=== PATIENT | male | born 1975 | race Caucasian/White ===

== ENCOUNTER 2018-08-21 15:29 | Emergency (ER) | payer OTHER, MEDICAID ==
[2018-08-21] MEDS ORDERED: NS 500 ML IV ONE (15:37)
[2018-08-21] MEDS ORDERED: HYDROmorphONE/DILAUDID 2 MG/ML INJ IVP ONE ×2 (15:37→18:09)
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
[2018-08-21] MEDS ORDERED: PROMETHAZINE HCL 25 MG/ML INJ IVP ONE ×2 (16:19→18:09)
[2018-08-21] MEDS ORDERED: IOPAMIDOL (ISOVUE-300) 100 ML BTL ONE (16:27)
[2018-08-21 16:37] LABS: PLATELET COUNT 362 10^3/uL (150-400)
[2018-08-21] MEDS ORDERED: HYDROmorphONE/DILAUDID 1 MG/ML INJ ONE (18:09)
[2018-08-21] MEDS ORDERED: PROMETHAZINE HCL 25 MG/ML INJ ONE (18:10)
[2018-08-21] MEDS ORDERED: POLYETHYLENE GLYCOL 3350 17 GM PKT ONE (18:53)
[2018-08-21] MEDS ORDERED: POLYETHYLENE GLYCOL 3350 17 GM PKT PO ONE (18:56)
[2018-08-21 18:57] VITALS: BP 126/75
== END 2018-08-21 19:12 | disposition home or self-care (01) ==
LOC: EDUNIT#
DX: R10.9 Unspecified abdominal pain (principal); K59.00 Constipation, unspecified
CPT/HCPCS: 74177; 96374; 96375; 96376; 99285; J1170; J2550; Q9967

== ENCOUNTER 2018-08-25 00:20 | Emergency (ER) | payer OTHER, MEDICAID ==
[2018-08-25] MEDS ORDERED: NS 1,000 ML IV ONE (00:24)
[2018-08-25] MEDS ORDERED: HYDROmorphONE/DILAUDID 2 MG/ML INJ IVP ONE ×2 (00:24→04:29)
[2018-08-25] MEDS ORDERED: ONDANSETRON 4 MG/2 ML VIAL IVP ONE (00:24)
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
[2018-08-25 01:05] LABS: PLATELET COUNT 394 10^3/uL (150-400)
[2018-08-25] MEDS ORDERED: HYOSCYAMINE SULFATE 0.125 MG TAB PO ONE (05:30)
[2018-08-25] MEDS ORDERED: MAG HYDROX/AL HYDROX/SIMETH 30 ML UDCUP PO ONE (05:30)
[2018-08-25] MEDS ORDERED: LIDOCAINE 2% VISCOUS 15 ML UDCUP PO ONE (05:30)
[2018-08-25 05:38] VITALS: BP 114/72
== END 2018-08-25 07:03 | disposition home or self-care (01) ==
LOC: EDUNIT#
DX: R10.9 Unspecified abdominal pain (principal); E86.9 Volume depletion, unspecified; G82.20 Paraplegia, unspecified
CPT/HCPCS: 96361; 96374; 96375; 96376; 99284; J1170; J2405

== ENCOUNTER 2018-08-28 17:04 | Inpatient (IN) | payer OTHER, MEDICAID ==
[2018-08-28] MEDS ORDERED: HYOSCYAMINE SULFATE 0.125 MG TAB PO ONE (17:28)
[2018-08-28] MEDS ORDERED: MAG HYDROX/AL HYDROX/SIMETH 30 ML UDCUP PO ONE (17:28)
[2018-08-28] MEDS ORDERED: LIDOCAINE 2% VISCOUS 15 ML UDCUP PO ONE (17:28)
[2018-08-28] MEDS ORDERED: HYDROmorphONE/DILAUDID 2 MG/ML INJ IVP ONE ×2 (17:28→18:47)
[2018-08-28] MEDS ORDERED: PROMETHAZINE HCL 25 MG/ML INJ IVP ONE ×2 (17:28→18:55)
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
[2018-08-28 17:55] LABS: PLATELET COUNT 386 10^3/uL (150-400)
[2018-08-28] MEDS ORDERED: methylPREDNISolone SOD SUCC 125 MG/2 ML VIAL IVP ONE (19:43)
[2018-08-28] MEDS ORDERED: oxyCODONE IR 5 MG TAB PO PRN (21:06)
[2018-08-28] MEDS ORDERED: ACETAMINOPHEN 325 MG TAB PO PRN (21:06)
[2018-08-28] MEDS: ONDANSETRON DISINTEGRATING 4 MG TAB PO PRN (22:11)
[2018-08-28] MEDS: PROMETHAZINE HCL 25 MG/ML INJ IVP PRN (23:17)
[2018-08-28] MEDS: HYDROmorphONE/DILAUDID 1 MG/ML INJ IVP PRN (23:18)
--- NOTE | 2018-08-28 23:35 | PDGENHP ---
History and Physical - Chief Complaint Abdominal pain - History of Present Illness 43 yo M w/ hx of C5 injury and UC presents with abdominal pain and BRBPR. He has been experiencing increased abdominal pain for 1 week. He has been to the ED 3 times over this period. He also moved to [facility] one week ago, which may also be contributing to presentation. He is complaining of severe lower abdominal pain, bloody/mucus discharge from his rectal stump and foul odor. He underwent a CT scan on 08/21 that was unremarkable. In the ED today his inflammatory markers are mildly elevated but his H/H are stable and his VS WNL. He did not feel comfortable being discharged back to [facility] so he was admitted for further management. GI was contacted in the ED and he was given methylprednisolone 125 mg IV x1. He has not been on any UC treatment for the last week. Most recently he was on short chain fatty acid (SCFA) enemas but none for the last week. Oral mesalamine was stopped 6 weeks ago due to rapid transit and stomach irritation. Of note, the patient was hospitalized at [facility] 2 months ago for extensive b/l DVTs. He has been on therapeutic Lovenox for this since. Case discussed with Dr. Fitzgerald; records reviewed and summarized above. History Information - Allergies/Home Medication List Allergies/Adverse Reactions: quetiapine fumarate [From Seroquel] Allergy (Severe, Verified 08/28/18 17:15) seizure acetylcysteine [From Mucomyst] Allergy (Verified 08/28/18 17:15) citalopram [From Celexa] Allergy (Verified 08/28/18 17:15) propofol Allergy (Verified 08/28/18 17:15) tramadol Allergy (Verified 08/28/18 17:15) Home Medications: Acetaminophen [Tylenol 325mg (*)] 325 - 650 mg PO Q4 PRN 08/28/18 [Last Taken Unknown] Albuterol [Ventolin Hfa Inhaler] 1 puffs IH Q4 PRN 08/28/18 [Last Taken Unknown] Cholecalciferol Vit D3 [Vitamin D3 (*)] 1,000 units PO DAILY 08/28/18 [Last Taken 08/28/18] Docusate Sodium [Colace 100 MG (*)] 200 mg PO BID 08/28/18 [Last Taken Unknown] Enoxaparin [Lovenox 80 MG (*)] 80 mg SQ Q12H 08/28/18 [Last Taken 08/28/18 08:00 ] Famotidine [Pepcid 20 MG (*)] 40 mg PO BID 08/28/18 [Last Taken 08/28/18 09:00] HYDROmorphone HCL [Dilaudid 2 mg (*)] 2 mg PO Q6 PRN 08/28/18 [Last Taken 08:40] Herbals/Supplements -Info Only 1 ea PO DAILY 08/28/18 [Last Taken Unknown] Hydrocortisone/Pramoxine [Proctofoam-Hc 1%-1% Foam] 1 rashmi Q12 PRN 08/28/18 [ Last Taken Unknown] LORazepam [Ativan (*)] 0.5 mg PO Q8 PRN 08/28/18 [Last Taken 08/27/18] Mag Hydrox/Aluminum Hyd/Simeth [Alum-Mag Hydroxide-Simeth Liq] 15 - 30 ml PO Q2 PRN 08/28/18 [Last Taken Unknown] Mesalamine [Canasa Suppository (*)] 1,000 mg AL DAILY 08/28/18 [Last Taken 08/27] Midodrine HCl 2.5 mg PO TIDMEAL PRN 08/28/18 [Last Taken Unknown] Mineral Oil [MINERAL OIL ENEMA] 1 rashmi Q12 PRN 08/28/18 [Last Taken Unknown] Multivitamins [Multivitamin (*)] 1 each PO DAILY 08/28/18 [Last Taken 08/28/18] Ondansetron Odt [Zofran Odt 4 mg (*)] 4 mg PO Q8H PRN 08/28/18 [Last Taken 08/28 11:00] Polyethylene Glycol 3350 [Miralax 17 gm (*)] 17 gm PO DAILY PRN 08/28/18 [Last Taken Unknown] Promethazine HCl [Phenergan 25mg (*)] 25 mg PO Q6 PRN 08/28/18 [Last Taken 08/27] Sennosides 8.6 mg PO DAILY PRN 08/28/18 [Last Taken Unknown] Sennosides [Senna Lax] 8.6 mg PO DAILY 08/28/18 [Last Taken Unknown] fentaNYL [Duragesic 12 MCG Patch (*)] 12 mcg TD Q72H 08/28/18 [Last Taken 08:00] I have personally reviewed and updated: family history, medical history - Past Medical History Additional medical history: C5 injury, incomplete. Ulcerative colitis - Surgical History Additional surgical history: Ostomy. Suprapubic catheter - Family History Additional family history: Grandmother had diverticulitis or IBD, patient unsure - Social History Smoking Status: Never smoked Review of Systems Review of Systems: ROS: 10pt was reviewed & negative except for what was stated in HPI & below Physical Exam Physical Exam: Temp Pulse Resp BP Pulse Ox 36.6 C 67 18 127/90 H 95 08/28/18 21:59 08/28/18 21:59 08/28/18 21:59 08/28/18 21:59 08/28/18 21:59 Constitutional: obese, uncomfortable Eyes: PERRL, EOMI Ears, Nose, Mouth, Throat: moist mucous membranes, no oral mucosal ulcers Cardiovascular: regular rate and rhythym, no murmur, rub, or gallop Respiratory: no respiratory distress, clear to auscultation Gastrointestinal: tenderness (Lower), No guarding, No rebound, No distension Skin: warm, other (Ostomy LLQ, SPT noted) Neurologic: AAOx3, other (LUE strength relatively intact, otherwise paralyzed) Lab Data & Imaging Review 08/28/18 17:37 08/28/18 17:37 WBC 8.16 10^3/uL (3.80-9.50) 08/28/18 17:37 RBC 3.67 10^6/uL (4.40-6.38) L 08/28/18 17:37 Hgb 10.2 g/dL (13.7-17.5) L 08/28/18 17:37 Hct 32.4 % (40.0-51.0) L 08/28/18 17:37 MCV 89.6 fL (81.5-99.8) 08/28/18 17:37 MCH 27.8 pg (27.9-34.1) L 08/28/18 17:37 MCHC 31.0 g/dL (32.4-36.7) L 08/28/18 17:37 RDW 13.9 % (11.5-15.2) 08/28/18 17:37 Plt Count 386 10^3/uL (150-400) 08/28/18 17:37 MPV 9.2 fL (8.7-11.7) 08/28/18 17:37 Neut % (Auto) 65.2 % (39.3-74.2) 08/28/18 17:37 Lymph % (Auto) 17.6 % (15.0-45.0) 08/28/18 17:37 [place] % (Auto) 7.7 % (4.5-13.0) 08/28/18 17:37 Eos % (Auto) 7.4 % (0.6-7.6) 08/28/18 17:37 Baso % (Auto) 0.5 % (0.3-1.7) 08/28/18 17:37 Nucleat RBC Rel Count 0.0 % (0.0-0.2) 08/28/18 17:37 Absolute Neuts (auto) 5.32 10^3/uL (1.70-6.50) 08/28/18 17:37 Absolute Lymphs (auto) 1.44 10^3/uL (1.00-3.00) 08/28/18 17:37 Absolute Monos (auto) 0.63 10^3/uL (0.30-0.80) 08/28/18 17:37 Absolute Eos (auto) 0.60 10^3/uL (0.03-0.40) H 08/28/18 17:37 Absolute Basos (auto) 0.04 10^3/uL (0.02-0.10) 08/28/18 17:37 Absolute Nucleated RBC 0.00 10^3/uL (0-0.01) 08/28/18 17:37 Immature Gran % 1.6 % (0.0-1.1) H 08/28/18 17:37 Immature Gran # 0.13 10^3/uL (0.00-0.10) H 08/28/18 17:37 ESR 25 MM/HR (0-15) H 08/28/18 17:37 Sodium 136 mEq/L (135-145) 08/28/18 17:37 Potassium 4.0 mEq/L (3.5-5.2) 08/28/18 17:37 Chloride 108 mEq/L (97-110) 08/28/18 17:37 Carbon Dioxide 23 mEq/l (22-31) 08/28/18 17:37 Anion Gap 5 mEq/L (6-14) L 08/28/18 17:37 BUN 9 mg/dL (7-23) 08/28/18 17:37 Creatinine 0.5 mg/dL (0.7-1.3) L 08/28/18 17:37 Estimated GFR > 60 08/28/18 17:37 Glucose 92 mg/dL (70-100) 08/28/18 17:37 Calcium 8.9 mg/dL (8.5-10.4) 08/28/18 17:37 C-Reactive Protein 18.8 mg/L (<10.0) H 08/28/18 17:37 Stool Occult Bld Scrn POSITIVE (NEGATIVE) H 08/28/18 18:47 Assessment & Plan Assessment: 43 yo M w/ C5 injury and UC presents with abdominal pain and BRBPR. Plan: 1. UC with suspected acute flare - Patient presents with 1 week of increased pain and reported bloody discharged from rectal stump; ESR 25 and CRP 18. He denies bloody output from his ostomy. He has been off of treatment for about a week. Most recently he was on short chain fatty acid (SCFA) enemas but none for the last week. Oral mesalamine was stopped 6 weeks ago due to rapid transit and stomach irritation. He is followed by [facility]. - Admit for observation - Pain control, anti-emetics PRN - NPO @ [place] - S/p methylprednisolone 125 mg x1 - GI contacted in the ED, may benefit from scope or UC directed therapies 2. Hx C5 injury - With retained mobility of E. He currently resided at [facility] while awaiting arrangement of an apartment with appropriate home health services. - Ostomy and SPT in place - Wound/ostomy care consult placed 3. Normocytic anemia - Stable over the last week, I suspect this is multifactorial from chronic inflammation and blood loss exacerbated by therapeutic anticoagulation - Monitor CBC - Will check ferritin with AM labs 4. Hx DVT - Patient admitted at [facility] 2 months ago for extensive, bilateral DVTs. He has been on therapeutic Lovenox since. - Hold Lovenox for now - If bleeding persists and unable to tolerate anticoagulation, may benefit from IVC filter Diet - NPO @ [place] Code - Full Ppx - SCDs Dispo - Admit under observation status
[2018-08-29] MEDS: HYDROmorphONE/DILAUDID 1 MG/ML INJ IVP PRN ×4 (04:23→23:09)
[2018-08-29] MEDS: PROMETHAZINE HCL 25 MG/ML INJ IVP PRN (06:22)
[2018-08-29] MEDS ORDERED: PROCTOFOAM HC 10 GM CAN PR PRN (07:50)
[2018-08-29] MEDS ORDERED: LORazepam 0.5 MG TAB PO PRN (07:50)
[2018-08-29] MEDS ORDERED: HYDROmorphONE/DILAUDID 2 MG TAB PO PRN (07:50)
[2018-08-29] MEDS ORDERED: ALBUTEROL 60 PUFFS/8 GM MDI IH PRN (08:00)
[2018-08-29] MEDS: CHOLECALCIFEROL VIT D3 1,000 UNITS TAB PO SCH (08:44)
[2018-08-29] MEDS: FAMOTIDINE 20 MG TAB PO SCH ×2 (08:44→20:34)
[2018-08-29] MEDS ORDERED: Herbals/Supplements -Info Only PO SCH (09:00)
--- NOTE | 2018-08-29 09:24 | PDANEPAE ---
ANE History of Present Illness EGD, colonoscopy ANE Past Medical History - Pulmonary History Hx Oxygen in Use at Home: No Hx Sleep Apnea: Yes - Endocrine History Hx Diabetes: No - Neurological & Psychiatric Hx Hx Neurological and Psychiatric Disorders: Yes Neurological / Psychiatric History Comment: C5 incomplete injury - GI History Hx Gastrointestinal Disorders: Yes Gastrointestinal History Comment: UC ANE Review of Systems Review of systems is: negative Review of Systems: - Exercise capacity Exercise capacity: limited by disability ANE Patient History - Allergies Allergies/Adverse Reactions: quetiapine fumarate [From Seroquel] Allergy (Severe, Verified 08/28/18 17:15) seizure acetylcysteine [From Mucomyst] Allergy (Verified 08/28/18 17:15) citalopram [From Celexa] Allergy (Verified 08/28/18 17:15) propofol Allergy (Verified 08/28/18 17:15) tramadol Allergy (Verified 08/28/18 17:15) - Home Medications Home medications: home medication list seen and reviewed Home Medications: Acetaminophen [Tylenol 325mg (*)] 325 - 650 mg PO Q4 PRN 08/28/18 [Last Taken Unknown] Albuterol [Ventolin Hfa Inhaler] 1 puffs IH Q4 PRN 08/28/18 [Last Taken Unknown] Cholecalciferol Vit D3 [Vitamin D3 (*)] 1,000 units PO DAILY 08/28/18 [Last Taken 08/28/18] Docusate Sodium [Colace 100 MG (*)] 200 mg PO BID 08/28/18 [Last Taken Unknown] Enoxaparin [Lovenox 80 MG (*)] 80 mg SQ Q12H 08/28/18 [Last Taken 08/28/18 08:00 ] Famotidine [Pepcid 20 MG (*)] 40 mg PO BID 08/28/18 [Last Taken 08/28/18 09:00] HYDROmorphone HCL [Dilaudid 2 mg (*)] 2 mg PO Q6 PRN 08/28/18 [Last Taken 08:40] Herbals/Supplements -Info Only 1 ea PO DAILY 08/28/18 [Last Taken Unknown] Hydrocortisone/Pramoxine [Proctofoam-Hc 1%-1% Foam] 1 rashmi RC Q12 PRN 08/28/18 [ Last Taken Unknown] LORazepam [Ativan (*)] 0.5 mg PO Q8 PRN 08/28/18 [Last Taken 08/27/18] Mag Hydrox/Aluminum Hyd/Simeth [Alum-Mag Hydroxide-Simeth Liq] 15 - 30 ml PO Q2 PRN 08/28/18 [Last Taken Unknown] Mesalamine [Canasa Suppository (*)] 1,000 mg WA DAILY 08/28/18 [Last Taken 08/27] Midodrine HCl 2.5 mg PO TIDMEAL PRN 08/28/18 [Last Taken Unknown] Mineral Oil [MINERAL OIL ENEMA] 1 rashmi RC Q12 PRN 08/28/18 [Last Taken Unknown] Multivitamins [Multivitamin (*)] 1 each PO DAILY 08/28/18 [Last Taken 08/28/18] Ondansetron Odt [Zofran Odt 4 mg (*)] 4 mg PO Q8H PRN 08/28/18 [Last Taken 08/28 11:00] Polyethylene Glycol 3350 [Miralax 17 gm (*)] 17 gm PO DAILY PRN 08/28/18 [Last Taken Unknown] Promethazine HCl [Phenergan 25mg (*)] 25 mg PO Q6 PRN 08/28/18 [Last Taken 08/27] Sennosides 8.6 mg PO DAILY PRN 08/28/18 [Last Taken Unknown] Sennosides [Senna Lax] 8.6 mg PO DAILY 08/28/18 [Last Taken Unknown] fentaNYL [Duragesic 12 MCG Patch (*)] 12 mcg TD Q72H 08/28/18 [Last Taken 08:00] - NPO status NPO Status: no food or drink >8 hours - Anes Hx Anes Hx: post operative nausea - Smoking Hx Smoking Status: Never smoked - Family Anes Hx Family Anes Hx: none ANE Labs/Vital Signs - Labs Result Diagrams: 08/28/18 17:37 08/28/18 17:37 - Vital Signs Vital Signs: reviewed preoperatively; see RN documention for details Blood Pressure: 107/73 Heart Rate: 77 Respiratory Rate: 12 O2 Sat (%): 96 Height: 182.88 cm Weight: 106.594 kg ANE Physical Exam - Airway Neck exam: decreased ROM Mallampati Score: Class 3 Mouth exam: normal dental/mouth exam, small mouth opening - Pulmonary Pulmonary: no respiratory distress - Cardiovascular Cardiovascular: regular rate and rhythym - ASA Status ASA Status: III ANE Anesthesia Plan Total IV Anesthesia: Yes Urgent/Emergent Case: David villalpando completed preop but documented later for safe timely pt care
[2018-08-29] MEDS ORDERED: PROPOFOL 200 MG/20 ML VIAL ONE ×2 (09:41→09:50)
[2018-08-29] MEDS ORDERED: LIDOCAINE 2% 100 MG/5 ML SYR ONE (09:42)
[2018-08-29] MEDS ORDERED: MIDAZOLAM 2 MG/2 ML VIAL ONE (09:57)
[2018-08-29] MEDS ORDERED: PROMETHAZINE HCL 25 MG/ML INJ ONE (10:06)
[2018-08-29] MEDS ORDERED: fentaNYL 100 MCG/2 ML INJ ONE (10:09)
[2018-08-29] MEDS ORDERED: NALOXONE HCL 0.4 MG/ML INJ IVP PRN (10:14)
[2018-08-29] MEDS ORDERED: PROMETHAZINE HCL 25 MG/ML INJ IVP PRN (10:14)
--- NOTE | 2018-08-29 10:17 | GIREPORT ---
[facility] - Endoscopy Department Patient Name: Franck Claros Procedure Date: 08/29/2018 9:37 AM Patient Type: Inpatient Attending MD/ ER Physician: Trenton King MD Procedure: Upper GI endoscopy Indications: Iron deficiency anemia, Abnormal CT of the GI tract Patient Profile: 43 year old male presents for evaluation of iron deficiency anemia as w ell as abnormal imaging/prior EGD? He was told that he needed a repeat EGD due to abnormal imaging. Providers: Trenton King MD Medicines: Monitored Anesthesia Care Complications: No immediate complications. Estimated blood loss: Minimal. Description of Procedure: After obtaining informed consent, the endoscope was passed under direct vision. Throughout the procedure, the patient's blood pressure, pulse, and oxygen saturations were monitored continuously. The Endoscope was intro duced through the mouth, and advanced to the second part of duodenum. The [facility] er GI endoscopy was accomplished without difficulty. The patient tolerated th e procedure well. Findings: The examined esophagus was normal. A hiatal hernia was present. A single 20 mm sessile polyp was found in the duodenal bulb. Biopsies w ere taken with a cold forceps for histology. Estimated Blood Loss: Estimated blood loss was minimal. Post Op Diagnosis: - Normal esophagus. - Hiatal hernia. - A single duodenal polyp. Biopsied. Recommendation: - Perform a flexible sigmoidoscopy. - Await pathology results. - Will need repeat EGD in 2 months for removal of the duodenal lesion dependent on biopsy results. Will need to be off Lovenox for this. - Thank you for allowing me to participate in the care of your patient. Attending Participation: I personally performed the entire procedure. Trenton King MD Trenton King MD 08/29/2018 10:17:09 AM This report has been signed electronicallyTrenton King MD Number of Addenda: 0 Note Initiated On: 08/29/2018 9:37 AM [email or web address]
[2018-08-29] MEDS: fentaNYL 100 MCG/2 ML INJ IVP PRN ×2 (10:19→10:29)
--- NOTE | 2018-08-29 11:37 | GIREPORT ---
[facility] - Endoscopy Department Patient Name: Franck Claros Procedure Date: 08/29/2018 9:29 AM Patient Type: Inpatient Attending MD/ ER Physician: Trenton King MD Procedure: Flexible Sigmoidoscopy, Scope through ostomy Indications: Lower abdominal pain, Rectal hemorrhage Patient Profile: 43 year old male with a history of possible UC, sigmoid colostomy prese nts for evaluation of progressive lower quadrant abdominal pain and blood f rom his rectal stump. He states he was told that he had UC previously. Providers: Trenton King MD Medicines: Propofol per Anesthesia Complications: No immediate complications. Estimated blood loss: Minimal. Description of Procedure: After obtaining informed consent, the endoscope was passed under direct vision. Throughout the procedure, the patient's blood pressure, pulse, and oxygen saturations were monitored continuously. The Endoscope was intro duced through the anus and advanced to the sigmoid colon. The Colonoscope was introduced through the sigmoid colostomy and advanced to the descending colon. The flexible sigmoidoscopy was accomplished without difficulty. The patient tolerated the procedure well. The quality of the bowel preparat ion was poor. Findings: the scope was introduced into the ostomy and advanced to the descending colon. Solid stool was seen. No signs of colitis noted. the scope was also introduced into the rectum and advanced to the sigmo id colon. The mucosa was erythematous and friable. Biopsies taken. Estimated Blood Loss: Estimated blood loss was minimal. Post Op Diagnosis: - Preparation of the colon was poor. 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 No evidence of ulcer ative colitis Recommendation: - [facility]. - Recommend SCFA enemas as outpatient. Will start Rowasa enemas as inpa tient - Taper steroids - He has followed up with colorectal surgery in [place] and will benefit from surgical evaluation for intestinal reconnection. - Await pathology results. - Resume previous diet. - Continue present medications. - Follow up with GI as outpatient. - GI will follow intermittently. Please call if needed. - Thank you for allowing me to particiapte in the care of your patient. Attending Participation: I personally performed the entire procedure. Trenton King MD Trenton King MD 08/29/2018 11:36:20 AM This report has been signed electronicallyTrenton King MD Number of Addenda: 0 Note Initiated On: 08/29/2018 9:29 AM [email or web address]
--- NOTE | 2018-08-29 11:49 | HOSPPROG ---
Hospitalist Progress Note Assessment/Plan: 43 yo M w/ C5 injury and UC presents with abdominal pain and BRBPR. Today is my first encounter w the patient, chart reviewed. Appreciate Dr King seeing him this morning. *abdominal pain, lower quadrant -initial concern was a UC flare but after discussion w Dr King, it is likely secondary due to diversion colitis -Rowasa enemas started -should get SCFA (short chain fatty acid) enemas as OP -Taper steroids per GI-only received one dose in the ER -recommendation is for him to f/u with surgeon in [place] for intestinal reconnection -endoscopy shows hiatal hernia and duodenal lesion-will need a repeat endoscopy in 2 months -flex sig nothing acute *hx of C5 injury -currently resides at [facility] *hx of DVT -Lovenox *normocytic anemia *chronic pain on chronic continuous opiates *plan: if eating ok, will dc with the above recommendations. Franck is requesting a dose of IV Dilaudid and a GI cocktail so he can eat. Subjective: Franck said he continues to have lower abdominal pain. Objective: Vital Signs Temp Pulse Resp BP Pulse Ox 36.6 C 62 12 108/67 93 08/29/18 11:42 08/29/18 11:42 08/29/18 11:42 08/29/18 11:42 08/29/18 11:42 08/28/18 08/29/18 08/30/18 05:59 05:59 05:59 Intake Total 400 Output Total 1100 Balance -1100 400 - Physical Exam Constitutional: chronically ill appearing, uncomfortable Eyes: PERRL Ears, Nose, Mouth, Throat: hearing normal Cardiovascular: regular rate and rhythym Respiratory: no respiratory distress Gastrointestinal: normoactive bowel sounds Skin: warm Neurologic: AAOx3 Psychiatric: interacting appropriately ICD10 Worksheet Patient Problems: Problems Problem Status Onset Abdominal pain Acute Rectal bleeding Acute
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
[2018-08-29] MEDS ORDERED: PROMETHAZINE HCL 25 MG TAB PO ONE (12:39)
[2018-08-29] MEDS ORDERED: HYDROmorphONE/DILAUDID 1 MG/ML INJ IVP ONE (12:41)
[2018-08-29] MEDS: ENOXAPARIN 80 MG/0.8 ML SYR SC SCH ×2 (13:07→20:36)
[2018-08-29] MEDS: MBX SOLN 30 ML BOTTLE PO PRN ×2 (13:51→21:44)
[2018-08-29] MEDS: MESALAMINE 4 GM/60 ML ENEMA BOTTLE PR SCH (15:02)
[2018-08-29] MEDS: NS 1,000 ML IV SCH (16:28)
--- NOTE | 2018-08-29 17:32 | ASMTCMCOM ---
CM Note CM Note Notes: Pt admitted for abd pain and blood from rectal stump in the setting of ulcerative colitis with colostomy and C5 injury. Pt recently moved to [facility]. Referral sent to [facility]. Pt underwent EGD today. No therapies ordered at this time. CM to follow. D/C Plan: Return to [facility] Date Signed: 08/29/2018 05:31 PM Electronically Signed By:Corry Randhawa
[2018-08-29] MEDS: ONDANSETRON 4 MG/2 ML VIAL IVP PRN ×2 (18:50→23:09)
--- NOTE | 2018-08-29 21:05 | PDMN ---
Medical Necessity Medical necessity: Pt meets IP criteria as of 08/29/2018 per and EKATERINA ZAMBRANO ( Gastroenterology [facility]); los > 2 mn for ongoing tx and management of abdominal pain likely secondary to diversion colitis, inability to maintain oral hydration and diet; requiring IV pain medication and anti-emetics, bowel program and GI consultation.
[2018-08-29] MEDS ORDERED: TEARS/DEXTRAN 70/HYPROMELLOSE 15 ML OPHT.BTL EACHEYE PRN (23:34)
[2018-08-30] MEDS: MBX SOLN 30 ML BOTTLE PO PRN ×8 (02:34→22:56)
[2018-08-30] MEDS: HYDROmorphONE/DILAUDID 1 MG/ML INJ IVP PRN ×5 (03:10→22:52)
[2018-08-30] MEDS: NS 1,000 ML IV SCH ×2 (06:06→17:54)
[2018-08-30] MEDS ORDERED: fentaNYL 12 MCG PATCH TD SCH (08:00)
--- NOTE | 2018-08-30 09:09 | SOAPPROG ---
SOAP Progress Note Assessment/Plan: Assessment: Plan: 08/30/18 09:05 A/P 1. Lower quadrant abdominal pain- hematochezia. 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 s/p Flex sig with bx. Need to f/u on path. Continue rowasa enemas and SCFA as outpatient. Ok to taper steroids off quickly. Will need to obtain old records and needs outpatient visit in 1-2 weeks. Ok to discharge soon. GI will sign off. Thank you for the consultation! Subjective: cc: Followup on hematochezia/lq abdominal pain Complaining of nausea and abdominal pain. Objective: Vital Signs Temp Pulse Resp BP Pulse Ox 36.6 C 76 169 H 117/82 H 96 08/30/18 08:00 08/30/18 08:00 08/30/18 08:00 08/30/18 08:00 08/30/18 08:00 08/29/18 08/30/18 08/31/18 05:59 05:59 05:59 Intake Total 600 1460 Output Total 1050 Balance -450 1460 Physical Exam - Physical Exam General Appearance: alert, no apparent distress EENT: No scleral icterus (R), No scleral icterus (L) Respiratory: chest non-tender, lungs clear Cardiac/Chest: regular rate, rhythm Abdomen: non-tender, soft, other (+ ostomy) Skin: normal color, warm/dry Neuro/Psych: normal mood/affect, oriented x 3 ICD10 Worksheet Patient Problems: Problems Problem Status Onset Abdominal pain Acute Rectal bleeding Acute
[2018-08-30] MEDS: ENOXAPARIN 80 MG/0.8 ML SYR SC SCH ×2 (09:14→20:09)
[2018-08-30] MEDS: ONDANSETRON 4 MG/2 ML VIAL IVP PRN ×3 (09:15→20:05)
[2018-08-30] MEDS: FAMOTIDINE 20 MG TAB PO SCH ×2 (09:15→20:05)
[2018-08-30] MEDS: CHOLECALCIFEROL VIT D3 1,000 UNITS TAB PO SCH (09:15)
--- NOTE | 2018-08-30 11:24 | HOSPPROG ---
Hospitalist Progress Note Assessment/Plan: 43 yo M w/ C5 injury and UC presents with abdominal pain and BRBPR. Appreciate Dr King seeing him this morning. *abdominal pain, lower quadrant -initial concern was a UC flare but after discussion w Dr King, it is likely secondary due to diversion colitis -Rowasa enemas started -should get SCFA (short chain fatty acid) enemas as OP -Taper steroids per GI-only received one dose in the ER -recommendation is for him to f/u with surgeon in [place] for intestinal reconnection -endoscopy shows hiatal hernia and duodenal lesion-will need a repeat endoscopy in 2 months -flex sig nothing acute *hx of C5 injury -currently resides at [facility] *hx of DVT -Lovenox *normocytic anemia *chronic pain on chronic continuous opiates *plan: will resume Valium for spasms, will review his med sheet from [place], says he is unable to eat due to the pain in his lower quadrant. Subjective: Franck is c/o ongoing lower quadrant abd pain. Objective: Vital Signs Temp Pulse Resp BP Pulse Ox 36.6 C 76 169 H 117/82 H 96 08/30/18 08:00 08/30/18 08:00 08/30/18 08:00 08/30/18 08:00 08/30/18 08:00 08/29/18 08/30/18 08/31/18 05:59 05:59 05:59 Intake Total 600 1460 Output Total 1050 Balance -450 1460 - Physical Exam Constitutional: chronically ill appearing, uncomfortable, No not in pain Eyes: PERRL Ears, Nose, Mouth, Throat: hearing normal Cardiovascular: regular rate and rhythym Respiratory: no respiratory distress Gastrointestinal: soft, non-tender abdomen, No normoactive bowel sounds ( hypoactive), No guarding, No rebound Genitourinary: luo in urethra Skin: warm Neurologic: AAOx3 Psychiatric: interacting appropriately ICD10 Worksheet Patient Problems: Problems Problem Status Onset Abdominal pain Acute Rectal bleeding Acute
[2018-08-30] MEDS: DIAZEPAM 5 MG TAB PO PRN ×3 (11:34→22:54)
[2018-08-30] MEDS: MESALAMINE 4 GM/60 ML ENEMA BOTTLE PR SCH (12:30)
--- NOTE | 2018-08-30 16:25 | ASMTCMCOM ---
CM Note CM Note Notes: CM discussed case with Azeb [facility] RN NEUROSURGICAL, patient could discharge today back to [facility] if he can eat. CM call to Zander @ [facility] [phone], patient able to return when ready. PCS form completed. CM to follow. D/C Plan: [facility] Date Signed: 08/30/2018 04:25 PM Electronically Signed By:Bianca Johnson
[2018-08-30] MEDS ORDERED: MIDODRINE HCL 5 MG TAB PO PRN (19:41)
[2018-08-30] MEDS: CEPACOL LOZENGE PO PRN (23:41)
[2018-08-30] MEDS: DOCUSATE SODIUM 100 MG CAP PO SCH (23:41)
[2018-08-31] MEDS: HYDROmorphONE/DILAUDID 1 MG/ML INJ IVP PRN ×3 (04:29→20:43)
[2018-08-31] MEDS: MBX SOLN 30 ML BOTTLE PO PRN ×3 (04:30→19:47)
[2018-08-31] MEDS: CEPACOL LOZENGE PO PRN ×3 (04:31→23:32)
[2018-08-31] MEDS: DIAZEPAM 5 MG TAB PO PRN ×3 (05:15→23:31)
[2018-08-31] MEDS: FAMOTIDINE 20 MG TAB PO SCH ×2 (08:38→20:51)
[2018-08-31] MEDS: DOCUSATE SODIUM 100 MG CAP PO SCH ×2 (08:39→20:52)
[2018-08-31] MEDS: ENOXAPARIN 80 MG/0.8 ML SYR SC SCH (08:39)
[2018-08-31] MEDS: CHOLECALCIFEROL VIT D3 1,000 UNITS TAB PO SCH (08:39)
[2018-08-31] MEDS: ONDANSETRON DISINTEGRATING 4 MG TAB PO PRN ×3 (09:01→23:32)
--- NOTE | 2018-08-31 11:13 | HOSPPROG ---
Hospitalist Progress Note Assessment/Plan: 43 yo M w/ C5 injury and UC presents with abdominal pain and BRBPR. *abdominal pain, lower quadrant -initial concern was a UC flare but after discussion w Dr King, it is likely secondary due to diversion colitis -Rowasa enemas started -should get SCFA (short chain fatty acid) enemas as OP -Taper steroids per GI-only received one dose in the ER -recommendation is for him to f/u with surgeon in [place] for intestinal reconnection -endoscopy shows hiatal hernia and duodenal lesion-will need a repeat endoscopy in 2 months -flex sig nothing acute -patient c/o spasms this morning in abdomen-hyoscyamine ordered, he thinks it may be r/t puja RN to bladder scan *hx of C5 injury -currently resides at [facility] *hx of DVT -Lovenox (dose changed to treatment dose) *normocytic anemia *chronic pain on chronic continuous opiates *plan: On dc, patient should have SCFA ordered, add Valium which has helped w spasms, would recommend continuing his Dilaudid as done here prn, patient was recently at [facility] and said the pain regimen they did for him really helped. In addition, his Lovenox dose has been increased. Should be dc on this dose. > 35 minutes talking w Franck today. Hopefully, if he can eat and drink, dc later today. Subjective: Franck said he is unable to eat or drink this morning, he did have a bowel movement. Objective: Vital Signs Temp Pulse Resp BP Pulse Ox 36.3 C 65 20 97/61 L 98 08/31/18 08:03 08/31/18 08:03 08/31/18 08:03 08/31/18 08:03 08/31/18 08:03 Laboratory Results 08/30/18 08:22 08/30/18 08/31/18 09/01/18 05:59 05:59 05:59 Intake Total 600 3300 Output Total 1050 900 Balance -450 2400 - Physical Exam Constitutional: chronically ill appearing Eyes: PERRL Ears, Nose, Mouth, Throat: hearing normal Cardiovascular: regular rate and rhythym Respiratory: no respiratory distress Gastrointestinal: normoactive bowel sounds, tenderness (in lower quadrants) Genitourinary: no bladder fullness, luo in urethra (suprapubic) Skin: warm, No normal color (pale) Neurologic: AAOx3 Psychiatric: interacting appropriately ICD10 Worksheet Patient Problems: Problems Problem Status Onset Abdominal pain Acute Rectal bleeding Acute
[2018-08-31] MEDS ORDERED: HYDROmorphONE/DILAUDID 4 MG TAB PO PRN ×2 (11:33→12:00)
[2018-08-31] MEDS ORDERED: HYOSCYAMINE SULFATE 0.125 MG TAB PO PRN (11:37)
[2018-08-31] MEDS: NS 1,000 ML IV SCH ×2 (12:01→23:26)
[2018-08-31] MEDS: MESALAMINE 4 GM/60 ML ENEMA BOTTLE PR SCH (12:06)
[2018-08-31] MEDS: HYDROmorphONE/DILAUDID 2 MG TAB PO PRN (19:44)
[2018-08-31] MEDS: ONDANSETRON 4 MG/2 ML VIAL IVP PRN (20:43)
[2018-08-31] MEDS: ENOXAPARIN 100 MG/ML SYR SC SCH (20:53)
[2018-09-01] MEDS: ONDANSETRON DISINTEGRATING 4 MG TAB PO PRN ×2 (03:56→14:07)
[2018-09-01] MEDS: MBX SOLN 30 ML BOTTLE PO PRN (03:56)
[2018-09-01] MEDS: HYDROmorphONE/DILAUDID 2 MG TAB PO PRN ×3 (03:59→14:07)
[2018-09-01 08:28] VITALS: BP 116/78
--- NOTE | 2018-09-01 10:05 | PDIAF ---
- Diagnosis Diagnosis: abd pain Code Status: Full Code - Medication Management Discharge Medications: electronically signed and located in the Home Medication List. - Orders Services needed: Registered Nurse, Physical Therapy, Occupational Therapy Diet Recommendation: no restrictions on diet Additional Instructions: Franck needs a repeat EGD in 2 months he needs a script for SCFA enemas (sheet of paper in chart gives the instructions-[facility]write out cont oral Dilaudid as here cont Lovenox as here (has been on too low of dose) cont Valium on dc dc Mesalamine capsule Franck needs to f/u with his GI surgeon in [place] in the next month - Follow Up Care Current Providers and Referrals: Patient,NotPresent [Unknown] - As per Instructions Trenton King MD [Medical Doctor] -
[2018-09-01] MEDS: CHOLECALCIFEROL VIT D3 1,000 UNITS TAB PO SCH (10:11)
[2018-09-01] MEDS: DOCUSATE SODIUM 100 MG CAP PO SCH (10:11)
[2018-09-01] MEDS: FAMOTIDINE 20 MG TAB PO SCH (10:12)
[2018-09-01] MEDS: ENOXAPARIN 100 MG/ML SYR SC SCH (10:13)
[2018-09-01] MEDS: MESALAMINE 4 GM/60 ML ENEMA BOTTLE PR SCH (10:18)
[2018-09-01] MEDS: NS 1,000 ML IV SCH (10:19)
[2018-09-01] MEDS: CEPACOL LOZENGE PO PRN (10:19)
[2018-09-01] MEDS ORDERED: PSEUDOEPHEDRINE HCL 30 MG TAB PO PRN (10:48)
[2018-09-01] MEDS: DIAZEPAM 5 MG TAB PO PRN (11:30)
--- NOTE | 2018-09-01 11:55 | ASMTLACE ---
LACE Length of stay for Answers: 4-6 days current admission Acuity / Level of Answers: Yes Care: Did the patient have an inpatient admission? Comorbidities - select Answers: Other Notes: C5 all that apply paraplegic; Diverticuli tis ; Ulcerative colitis # of Emergency department Answers: 3-4 visits in the last 6 months Score: 11 Date Signed: 09/01/2018 11:55 AM Electronically Signed By:JUNAID Danielson
--- NOTE | 2018-09-01 11:57 | ASMTDCNOTE ---
Case Management Discharge Discharge Order Complete? Answers: Yes Patient to Obtain Answers: Other Notes: [facility] Transportation Arranged Answers: [facility] will Pick (Date 09/01/2018 02:00 PM & Time) EMTALA Complete Answers: No Case Management Transport Answers: Yes Notes: Completed PCS form Form Complete Faxed Final Orders Answers: Yes Agency/Facility Transfer Answers: Yes Report Printed & Faxed to Receiving Agency Family Notified Answers: No Discharge Comments Notes: CM spoke to Analy Mccracken NP. Pt is being d/c'd today back to [facility]. CM notified Zander at [facility] of the d/c. CM arranged for pt to be picked up by [facility]. PCS form completed. DC orders sent. ADAMA Ornelas will call to give report. CM available for changes. Plan: [facility] Date Signed: 09/01/2018 11:56 AM Electronically Signed By:JUNAID Danielson
--- NOTE | 2018-09-01 11:59 | ASDISCHSUM ---
Discharge Information Plan Status:SNF Medically Cleared to Leave:08/31/2018 Discharge Date:08/31/2018 CM D/C Disposition: ADT D/C Disposition:Halfway Facility Projected Discharge Date:09/01/2018 11:00 AM Transportation at D/C: Discharge Delay Reason: Follow-Up Date:09/01/2018 11:00 AM Discharge Slot: Final Diagnosis: Placement Information Referral Type:*Group Home/SNF Referral ID:[id number] Provider Name:[facility]/ISABELLE Delogn Address 1:[address] Address 2: Fax Number: [facility]:[place] Selection Factors: State:[place] Patient Contact Information Contact Name:ALESHA Relationship:Other Address:[facility] [address] [facility] [address] Work Phone: [facility]:[place] Alternate Phone: State/Zip Code:[place] [address] Email: Financial Information Financial Class:Medicare Primary Plan Desc:MEDICARE INPATIENT Primary Plan Number:[id number] Secondary Plan Desc: Secondary Plan Number: Assessment Information [facility] CM Progress Note CM Note CM Note Notes: Pt admitted for abd pain and blood from rectal stump in the setting of ulcerative colitis with colostomy and C5 injury. Pt recently moved to [facility]. Referral sent to [facility]. Pt underwent EGD today. No therapies ordered at this time. CM to follow. D/C Plan: Return to [facility] Date Signed: 08/29/2018 05:31 PM Electronically Signed By:Corry Randhawa [facility] CM Progress Note CM Note CM Note Notes: CM discussed case with Azeb Lincoln NP, patient could discharge today back to [facility] if he can eat. CM call to Zander @ [facility] [phone], patient able to return when ready. PCS form completed. CM to follow. D/C Plan: [facility] Date Signed: 08/30/2018 04:25 PM Electronically Signed By:Bianca Johnson LACE LACE Length of stay for Answers: 4-6 days current admission Acuity / Level of Answers: Yes Care: Did the patient have an inpatient admission? Comorbidities - select Answers: Other Notes: C5 all that apply paraplegic; Diverticuli tis ; Ulcerative colitis # of Emergency department Answers: 3-4 visits in the last 6 months Score: 11 Date Signed: 09/01/2018 11:55 AM Electronically Signed By:JUNAID Danielson Case Management Discharge Plan Note Case Management Discharge Discharge Order Complete? Answers: Yes Patient to Obtain Answers: Other Notes: [facility] Medications Transportation Arranged Answers: [facility] will Pick (Date 09/01/2018 02:00 PM & Time) [place] Complete Answers: No Case Management Transport Answers: Yes Notes: Completed PCS form Form Complete Faxed Final Orders Answers: Yes Agency/Facility Transfer Answers: Yes Report Printed & Faxed to Receiving Agency Family Notified Answers: No Discharge Comments Notes: CM spoke to Analy Mccracken NP. Pt is being d/c'd today back to [facility]. CM notified Zander at [facility] of the d/c. CM arranged for pt to be picked up by LESLEE hernandez. PCS form completed. DC orders sent. ADAMA Ornelas will call to give report. CM available for changes. Plan: [facility] SNF Date Signed: 09/01/2018 11:56 AM Electronically Signed By:JUNAID Danielson Intervention Information Intervention Type:*IM-Signed Date of Service:09/01/2018 11:09 AM Patient Type:Inpatient Staff Member:Sarah Lr Hours: Discipline: Severity: Comment:
--- NOTE | 2018-09-01 15:41 | GDS ---
DISCHARGE DIAGNOSES: 1. Abdominal pain. 2. History of C5 injury. 3. Normocytic anemia. 4. Chronic pain, on chronic continuous opiates. CONSULTATIONS: Gastroenterology. STUDIES AND PROCEDURES DONE: 1. Flexible sigmoidoscopy. 2. Upper endoscopy. PHYSICAL EXAM: GENERAL: Patient is alert. VITAL SIGNS: Afebrile at 36.2, pulse 78, respiratory rate is 18, blood pressure is 116/89, saturating 98% on 2 L. I have seen and evaluated patient on day of discharge. HOSPITAL COURSE: 1. The patient is a 43-year-old male who resides at a intermediate facility , who presents to the emergency room with complaints of abdominal pain. He was evaluated and diagnosed with abdominal pain of unclear etiology. The patient has a history of ulcerative colitis. During this hospitalization, he received a consultation from Gastroenterology. Flexible sigmoidoscopy as well as upper EGD were performed. No significant abnormalities were identified. Hiatal hernia as well as duodenal lesion were noted. The patient requires a followup with repeat endoscopy in 2 months. Short-chain fatty acid enemas have been ordered in the outpatient setting, as well as Rowasa enemas. 2. History of C5 injury. The patient currently resides at [facility]. He is at his baseline. 3. History of DVT. He has been placed on Lovenox treatment dose. 4. Normocytic anemia. This is multifactorial. 5. Chronic pain, on chronic continuous opiates. His medications have been adjusted. 6. Disposition. The patient will be discharged to return to [facility] where he normally resides. There are no pending studies. DISCHARGE MEDICATIONS: Please refer to EMR form. I have provided the patient a prescription for short-chain fatty acid enemas. Other new medications include Sudafed, Valium, Lovenox, Dilaudid, Levsin, Maalox. I spent greater than 35 minutes in the care, coordination, and management of patient's disposition. Followup should be with the patient's primary dispatch officer in [place]. He should also have a followup EGD in 2 months. /[id number]/MODL MTDD
== END 2018-09-01 14:29 | DRG 392 ==
LOC: EDUNIT# → F3E 21:50 → INTOOBSV 08-29 15:26 → OBSVTOIN 08-29 15:26
PROVIDERS: ADMIT Internal Medicine; ATTEND Internal Medicine
PROC: 0DB98ZX Excision of Duodenum, Via Natural or Artificial Opening Endoscopic, Diagnostic (ICD-10-PCS; principal; 2018-08-29 10:30)
PROC: 0DBP8ZX Excision of Rectum, Via Natural or Artificial Opening Endoscopic, Diagnostic (ICD-10-PCS; principal; 2018-08-29 10:30)
DX: R10.30 Lower abdominal pain, unspecified (principal); K62.5 Hemorrhage of anus and rectum; K51.90 Ulcerative colitis, unspecified, without complications; D64.9 Anemia, unspecified; G82.22 Paraplegia, incomplete; K44.9 Diaphragmatic hernia without obstruction or gangrene; G89.29 Other chronic pain; K31.7 Polyp of stomach and duodenum; K21.9 Gastro-esophageal reflux disease without esophagitis; Z93.3 Colostomy status; Z87.440 Personal history of urinary (tract) infections; Z96.0 Presence of urogenital implants; Z86.718 Personal history of other venous thrombosis and embolism
CPT/HCPCS: 96374; G0378; J1170; J1650; J2001; J2250; J2405; J2550; J2704; J2930; J3010

== ENCOUNTER 2018-09-10 21:40 | Inpatient (IN) | payer OTHER, MEDICAID ==
[2018-09-10] MEDS ORDERED: NS 1,000 ML IV ONE (22:04)
[2018-09-10] MEDS ORDERED: PROMETHAZINE HCL 25 MG/ML INJ IVP ONE (22:04)
[2018-09-10] MEDS ORDERED: fentaNYL 100 MCG/2 ML INJ IVP ONE ×2 (22:04→23:29)
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
[2018-09-10] MEDS ORDERED: PROMETHAZINE HCL 25 MG/ML INJ ONE (22:19)
[2018-09-10 22:24] LABS: PLATELET COUNT 286 10^3/uL (150-400)
[2018-09-10] MEDS ORDERED: HYOSCYAMINE SULFATE 0.125 MG TAB PO ONE (23:38)
[2018-09-10] MEDS ORDERED: MAG HYDROX/AL HYDROX/SIMETH 30 ML UDCUP PO ONE (23:38)
[2018-09-10] MEDS ORDERED: LIDOCAINE 2% VISCOUS 15 ML UDCUP PO ONE (23:38)
[2018-09-11] MEDS ORDERED: ACETAMINOPHEN 325 MG TAB PO PRN (02:04)
[2018-09-11] MEDS ORDERED: ONDANSETRON DISINTEGRATING 4 MG TAB PO PRN ×2 (02:04→14:43)
[2018-09-11] MEDS ORDERED: HYDROmorphONE/DILAUDID 1 MG/ML INJ IVP PRN (02:04)
--- NOTE | 2018-09-11 02:18 | PDGENHP ---
History and Physical - Chief Complaint Nausea, abdominal pain - History of Present Illness 43 yo M w/ hx of C5 paraplegia and UC presents with abdominal pain and nausea. He tells me these symptoms have worsened over the last 3 days. He tells me his care at [facility] has been inconsistent in terms of medications, which is likely contributing to his presentation. He was admitted here from 08/28-09/01 with similar symptoms. During that admission an EGD and flexible sigmoidoscopy of rectal stump did not reveal significant abnormalities. He was treated conservatively and his symptoms improved with oral Dilaudid and Valium. He tells me [facility] ran out of Valium so he has not been getting this. He also continues to have mucous discharge from his rectal stump. In the ED his work-up is reassuring. Case discussed with ED physician Dr. Thomas; records reviewed and summarized above. History Information - Allergies/Home Medication List Allergies/Adverse Reactions: quetiapine fumarate [From Seroquel] Allergy (Severe, Verified 09/10/18 21:51) seizure acetylcysteine [From Mucomyst] Allergy (Verified 09/10/18 21:51) citalopram [From Celexa] Allergy (Verified 09/10/18 21:51) propofol Allergy (Verified 09/10/18 21:51) tramadol Allergy (Verified 09/10/18 21:51) Home Medications: Acetaminophen [Tylenol 325mg (*)] 325 - 650 mg PO Q4 PRN 08/28/18 [Last Taken Unknown] Albuterol [Ventolin Hfa Inhaler] 1 puffs IH Q4 PRN 08/28/18 [Last Taken Unknown] Cholecalciferol Vit D3 [Vitamin D3 (*)] 1,000 units PO DAILY 08/28/18 [Last Taken 08/28/18] Docusate Sodium [Colace 100 MG (*)] 200 mg PO BID 08/28/18 [Last Taken Unknown] Famotidine [Pepcid 20 MG (*)] 40 mg PO BID 08/28/18 [Last Taken 08/28/18 09:00] HYDROmorphone HCL [Dilaudid 2 mg (*)] 2 mg PO Q6 PRN 08/28/18 [Last Taken 08:40] Herbals/Supplements -Info Only 1 ea PO DAILY 08/28/18 [Last Taken Unknown] Hydrocortisone/Pramoxine [Proctofoam-Hc 1%-1% Foam] 1 rashmi RC Q12 PRN 08/28/18 [ Last Taken Unknown] LORazepam [Ativan (*)] 0.5 mg PO Q8 PRN 08/28/18 [Last Taken 08/27/18] Mag Hydrox/Aluminum Hyd/Simeth [Alum-Mag Hydroxide-Simeth Liq] 15 - 30 ml PO Q2 PRN 08/28/18 [Last Taken Unknown] Mesalamine [Canasa Suppository (*)] 1,000 mg MD DAILY 08/28/18 [Last Taken 08/27] Midodrine HCl 2.5 mg PO TIDMEAL PRN 08/28/18 [Last Taken Unknown] Mineral Oil [MINERAL OIL ENEMA] 1 rashmi RC Q12 PRN 08/28/18 [Last Taken Unknown] Multivitamins [Multivitamin (*)] 1 each PO DAILY 08/28/18 [Last Taken 08/28/18] Polyethylene Glycol 3350 [Miralax 17 gm (*)] 17 gm PO DAILY PRN 08/28/18 [Last Taken Unknown] Promethazine HCl [Phenergan 25mg (*)] 25 mg PO Q6 PRN 08/28/18 [Last Taken 08/27] Sennosides 8.6 mg PO DAILY PRN 08/28/18 [Last Taken Unknown] Sennosides [Senna Lax] 8.6 mg PO DAILY 08/28/18 [Last Taken Unknown] fentaNYL [Duragesic 12 MCG Patch (*)] 12 mcg TD Q72H 08/28/18 [Last Taken 08:00] Compounded Rectal Cream 1 rashmi TP TID PRN 08/30/18 [Last Taken Unknown] I have personally reviewed and updated: family history, medical history - Past Medical History Additional medical history: C5 injury, incomplete. Ulcerative colitis - Surgical History Additional surgical history: Ostomy. Suprapubic catheter - Family History Additional family history: Grandmother had diverticulitis or IBD, patient unsure - Social History Smoking Status: Never smoked Review of Systems Review of Systems: ROS: 10pt was reviewed & negative except for what was stated in HPI & below Physical Exam Physical Exam: Temp Pulse Resp BP Pulse Ox 36.8 C 84 20 108/60 98 09/10/18 21:54 09/10/18 23:33 09/10/18 23:33 09/11/18 00:10 09/10/18 23:33 Constitutional: appears nourished, uncomfortable Eyes: PERRL, EOMI Ears, Nose, Mouth, Throat: moist mucous membranes, no oral mucosal ulcers Cardiovascular: regular rate and rhythym, no murmur, rub, or gallop Respiratory: no respiratory distress, clear to auscultation Gastrointestinal: normoactive bowel sounds, No guarding, No rebound, No distension Skin: warm, other (SPT in place) Musculoskeletal: other (Able to move LUE only) Neurologic: AAOx3, weakness Lab Data & Imaging Review 09/10/18 22:15 09/10/18 22:15 WBC 8.16 10^3/uL (3.80-9.50) 09/10/18 22:15 RBC 3.46 10^6/uL (4.40-6.38) L 09/10/18 22:15 Hgb 9.7 g/dL (13.7-17.5) L 09/10/18 22:15 Hct 30.3 % (40.0-51.0) L 09/10/18 22:15 MCV 87.6 fL (81.5-99.8) 09/10/18 22:15 MCH 28.0 pg (27.9-34.1) 09/10/18 22:15 MCHC 32.0 g/dL (32.4-36.7) L 09/10/18 22:15 RDW 14.9 % (11.5-15.2) 09/10/18 22:15 Plt Count 286 10^3/uL (150-400) 09/10/18 22:15 MPV 9.2 fL (8.7-11.7) 09/10/18 22:15 Neut % (Auto) 71.6 % (39.3-74.2) 09/10/18 22:15 Lymph % (Auto) 11.4 % (15.0-45.0) L 09/10/18 22:15 [place] % (Auto) 7.8 % (4.5-13.0) 09/10/18 22:15 Eos % (Auto) 8.5 % (0.6-7.6) H 09/10/18 22:15 Baso % (Auto) 0.5 % (0.3-1.7) 09/10/18 22:15 Nucleat RBC Rel Count 0.0 % (0.0-0.2) 09/10/18 22:15 Absolute Neuts (auto) 5.84 10^3/uL (1.70-6.50) 09/10/18 22:15 Absolute Lymphs (auto) 0.93 10^3/uL (1.00-3.00) L 09/10/18 22:15 Absolute Monos (auto) 0.64 10^3/uL (0.30-0.80) 09/10/18 22:15 Absolute Eos (auto) 0.69 10^3/uL (0.03-0.40) H 09/10/18 22:15 Absolute Basos (auto) 0.04 10^3/uL (0.02-0.10) 09/10/18 22:15 Absolute Nucleated RBC 0.00 10^3/uL (0-0.01) 09/10/18 22:15 Immature Gran % 0.2 % (0.0-1.1) 09/10/18 22:15 Immature Gran # 0.02 10^3/uL (0.00-0.10) 09/10/18 22:15 Sodium 134 mEq/L (135-145) L 09/10/18 22:15 Potassium 4.0 mEq/L (3.5-5.2) 09/10/18 22:15 Chloride 108 mEq/L (97-110) 09/10/18 22:15 Carbon Dioxide 18 mEq/l (22-31) L 09/10/18 22:15 Anion Gap 8 mEq/L (6-14) 09/10/18 22:15 BUN 6 mg/dL (7-23) L 09/10/18 22:15 Creatinine 0.4 mg/dL (0.7-1.3) L 09/10/18 22:15 Estimated GFR > 60 09/10/18 22:15 Glucose 90 mg/dL (70-100) 09/10/18 22:15 Calcium 8.4 mg/dL (8.5-10.4) L 09/10/18 22:15 Assessment & Plan Assessment: 43 yo M w/ UC and C5 paraplegia presents with abdominal pain and nausea. Plan: 1. Abdominal pain, nausea - Unclear etiology; this was worked up extensively last admission. Some of this may be due to mild UC (not evident on endoscopy) or functional abdominal pain. - Continue home medications (PO Dilaudid, PO Valium) - Will add Dilaudid IV for breakthrough initially - mIVF, anti-emetics PRN 2. Ulcerative colitis - With EGD and flexible sigmoidoscopy performed last admission that were reassuring. Patient has been receiving mesalamine since discharge but [facility] has not been able to obtain SCFA enemas. - Continue home medications pending reconciliation 3. Hx C5 injury - With retained mobility of LUE. He currently resided at [facility] while awaiting arrangement of an apartment with appropriate home health services. - Ostomy and SPT in place - Wound/ostomy care consult placed 4. Normocytic anemia - Relatively stable since discharge, I suspect this is multifactorial from chronic inflammation and blood loss exacerbated by therapeutic anticoagulation - Monitor CBC - Will check ferritin with AM labs 5. Hx DVT - Patient admitted at [facility] 2 months ago for extensive, bilateral DVTs. He has been on therapeutic Lovenox since. - Continue therapeutic Lovenox pending reconciliation Diet - Clears, ADAT Code - Full Ppx - Therapeutic dose Lovenox Dispo - Admit under observation status
[2018-09-11] MEDS: PROMETHAZINE HCL 25 MG/ML INJ IVP PRN (03:30)
[2018-09-11] MEDS: HYDROmorphONE/DILAUDID 2 MG TAB PO PRN ×4 (03:32→21:59)
[2018-09-11] MEDS: DIAZEPAM 5 MG TAB PO PRN ×4 (03:32→21:58)
[2018-09-11] MEDS: NS 1,000 ML IV SCH ×2 (07:45→14:02)
--- NOTE | 2018-09-11 10:17 | ASMTCMCOM ---
CM Note CM Note Notes: Patient admitted with abdominal pain. He's a C5 paraplegic who has an ostomy and suprapubic cath. Patient resides at [facility] in terminal operator care. He is currently disatisfied with his care there, so I have requested that Zander, the global human resources director meet with patient. This will occur today. Patient will likely discharge back to ; however, Case Management will follow. Date Signed: 09/11/2018 10:16 AM Electronically Signed By:Mamie Varela RN
[2018-09-11] MEDS ORDERED: LIDOCAINE TP PRN (14:43)
[2018-09-11] MEDS ORDERED: MBX SOLN 30 ML BOTTLE PO PRN (14:43)
[2018-09-11] MEDS ORDERED: PROMETHAZINE HCL 25 MG TAB PO PRN (14:43)
[2018-09-11] MEDS ORDERED: PROCTOFOAM HC 10 GM CAN PR PRN (14:43)
[2018-09-11] MEDS ORDERED: MESALAMINE 1,000 MG SUPP PR PRN (14:43)
[2018-09-11] MEDS ORDERED: LACTULOSE 20 GM/30 ML UDCUP PO PRN (15:15)
--- NOTE | 2018-09-11 15:32 | WOCRNPDOC ---
MAKAY[facility] Advanced Assessment Note - Colostomy Assessment, Advanced Left Abdomen Colostomy Stoma Colostomy Appliance Intact: Yes Colostomy Appliance Currently in Use: Two Piece Flat, 2 1/4 Stoma Color: [place] Stoma Turgor: Moist Stoma Shape: Oval Stoma Height: Protruding Slightly Colostomy Comment/Treatment Details: Patient complaint that he is not wearing the appliance he normally wears because the facility he was staying in prior to admission does not have the supplies. Patient tells me that he uses [facility] 2 1/4" two piece convex appliance and has, successfully, for years. We also do not have this appliance but provided the patient and his RN Belinda with 4 convex barriers to create a better fit with his next appliance change. All questions answered. Wound care will not continue to round.
[2018-09-11] MEDS: fentaNYL 12 MCG PATCH TD SCH (16:00)
[2018-09-11] MEDS: ENOXAPARIN 100 MG/ML SYR SC SCH ×3 (16:01→22:49)
--- NOTE | 2018-09-11 16:14 | HOSPPROG ---
Hospitalist Progress Note Assessment/Plan: 1. Abdominal pain, nausea - Unclear etiology, s/p extensive evaluation at admission earlier this month - Continue home medications (PO Dilaudid, PO Valium) - Dilaudid IV for breakthrough had been ordered, stopping as not helping - hold IVF as taking po fluids - anti-emetics PRN 2. Ulcerative colitis -stopped mesalamine at his request -nursing orders for enemas -will consult GI in AM if not improving -spoke with pharm re options for SCFA enemas, called [facility]-they don' t compound this 3. Hx C5 injury - With retained mobility of LUE. He currently resides at [facility] while awaiting arrangement of an apartment with appropriate home health services. - Ostomy and SPT in place 4. Normocytic anemia - Relatively stable - Monitor CBC -poor nutritional status with low alb/protein -suspect multi-factorial 5. Hx DVT - Patient admitted at [facility] 2 months ago for extensive, bilateral DVTs. He has been on therapeutic Lovenox since. - Continue therapeutic Lovenox Diet - Clears, ADAT Code - Full Ppx - Therapeutic dose Lovenox Dispo - > 2 mdnts due to ongoing pain requiring IV pain medications Subjective: Ongoing nausea and abd pain. Says has too much mucous in rectum, enemas are not helping and then gets rectal spasm/pain. Says only the fatty acid chain enemas and having an endoscopy or tap water enema helps. Is drinking some fluids, but says not eating much (and hasn't for days). Says upset with care at SNF. Objective: Vital Signs Temp Pulse Resp BP Pulse Ox 98.5 F 83 16 107/69 96 09/11/18 15:40 09/11/18 15:40 09/11/18 15:40 09/11/18 15:40 09/11/18 15:40 Laboratory Results 09/11/18 04:54 09/10/18 09/11/18 09/12/18 11:59 11:59 11:59 Intake Total 250 Output Total 700 850 Balance -700 -600 - Time Spent With Patient Time Spent with Patient: greater than 35 minutes Time Spent with Patient: Greater than 35 minutes spent on this patients care, greater than 50% of time spent counseling, educating, and coordinating care regarding the above mentioned plan. - Physical Exam Constitutional: no apparent distress, obese Eyes: anicteric sclera Ears, Nose, Mouth, Throat: moist mucous membranes, hearing normal Cardiovascular: regular rate and rhythym, no murmur, rub, or gallop Respiratory: no respiratory distress, no rales or rhonchi, clear to auscultation Gastrointestinal: normoactive bowel sounds, tenderness, No rebound, No distension Skin: warm Psychiatric: interacting appropriately, not encephalopathic, flat affect ICD10 Worksheet Patient Problems: Problems Problem Status Onset Abdominal pain Acute Nausea Acute Rectal bleeding Acute
[2018-09-11] MEDS: FAMOTIDINE 20 MG TAB PO SCH (21:39)
[2018-09-11] MEDS: MBX SOLN 30 ML BOTTLE PO SCH (21:45)
[2018-09-12] MEDS: HYDROmorphONE/DILAUDID 2 MG TAB PO PRN ×3 (06:14→22:15)
[2018-09-12] MEDS: DIAZEPAM 5 MG TAB PO PRN ×3 (06:15→22:15)
--- NOTE | 2018-09-12 07:53 | PDMN ---
Medical Necessity Medical necessity: Pt meets IP criteria as of 09/11/2018 per and EKATERINA M-05; ( Abdominal pain, undiagnosed); est los > 2 mn for ongoing tx and management of abdominal pain with nausea; requiring IV dilaudid for severe breakthrough pain and IV anti-emetics.
[2018-09-12] MEDS ORDERED: NS 1,000 ML IV ONE (08:52)
[2018-09-12] MEDS ORDERED: MESALAMINE 4 GM/60 ML ENEMA BOTTLE PR SCH (09:00)
[2018-09-12] MEDS: SENNOSIDES 1 TAB PO SCH (09:47)
[2018-09-12] MEDS: CHOLECALCIFEROL VIT D3 1,000 UNITS TAB PO SCH (09:47)
[2018-09-12] MEDS: FAMOTIDINE 20 MG TAB PO SCH ×2 (09:47→20:49)
[2018-09-12] MEDS: MULTIVITAMINS 1 EACH TAB PO SCH (09:47)
[2018-09-12] MEDS: PANTOPRAZOLE SODIUM 40 MG VIAL IVP SCH (09:50)
[2018-09-12] MEDS: MBX SOLN 30 ML BOTTLE PO SCH ×2 (10:23→20:51)
[2018-09-12] MEDS: ENOXAPARIN 100 MG/ML SYR SC SCH ×2 (10:52→20:52)
[2018-09-12] MEDS: PROMETHAZINE HCL 25 MG/ML INJ IVP PRN ×2 (11:00→21:10)
--- NOTE | 2018-09-12 14:16 | PDCONSULT ---
Traveling Freight Agent Note: GI Consult Full note dictated. No indication for repeat endoscopy at this time. Rec: Suggest HC enema BID in place of Rowasa if available Pt to follow up with his surgeon for definitive therapy for diversion colitis Pt can follow as outpatient with Dr. King regarding duo polyp Will sign off
--- NOTE | 2018-09-12 15:00 | GCON ---
DATE OF CONSULTATION: 09/12/2018 CHIEF COMPLAINT: Abdominal pain. HISTORY OF PRESENT ILLNESS: I am asked to see this patient in consultation by Dr. Christiansen for chief c omplaint of abdominal pain. The patient is a complex 43-year-old who was admitted less than 2 weeks ago for similar symptoms. At that time, he was seen by Dr. King for a consultation. The patient is status post C5 neck injury with paraplegia and has underlying ulcerative colitis. He has undergone p artial resection with a sigmoid ostomy and a remaining rectal stump. He was complaining of discharge and pain from his rectal stump, stating that he was not getting medicines at [facility]. At last admission, he underwent upper endoscopy by Dr. King that showed a possible duodenal polyp and an exa m through the ostomy that appeared normal, exam through the rectal stump that showed colitis consiste nt with diversion colitis. Biopsy also showed active inflammation that was suggestive of diversion c olitis. The patient was supposed to be treated with short-chain fatty acid enemas, but has been unab le to obtain them. He states the Rowasa enemas have not been helpful. He complains of increased muc us from his rectal stump. He complains of abdominal pain. The patient has been followed previously by Gastroenterology in [place]. Also followed by a surgeon who has suggested reconnection of his osto my to his rectal stump. The patient states he has had multiple medical therapies including hydrocort isone, Bentyl, symptomatic treatment, which have not been helpful. At this point, there has not been blood or evidence of active GI bleeding. ALLERGIES: Tramadol, citalopram, Seroquel. MEDICATIONS: On presentation include Valium, Dilaudid, Phenergan, lidocaine, lactulose, Lovenox, Pep carmen, senna, Rowasa enemas and Canasa suppositories, Proctofoam. PAST MEDICAL HISTORY: C5 injury with paraplegia, ulcerative colitis, asthma, DVT, anxiety. FAMILY HISTORY: Possible inflammatory bowel disease in the grandmother versus diverticulitis. SOCIAL HISTORY: Patient denies smoking. REVIEW OF SYSTEMS: I performed a complete review of systems which is negative except for the pertine nt positives and negatives noted above in the HPI. PHYSICAL EXAM: VITAL SIGNS: Afebrile at 36.8, BP 114/71, pulse 73. CONSTITUTIONAL: Alert and orie nted. EYES: No scleral icterus. HEENT: No oral lesions. CARDIOVASCULAR: Regular rhythm. CHEST: Clear to auscultation. ABDOMEN: Obese and soft. He has a suprapubic catheter and an ostomy in pl jasen that appear healthy. Tender, but no rebound. NEUROLOGIC: Paraplegia. SKIN: No lesions. LABORATORY DATA: BUN and creatinine are normal. White count 5, hematocrit 28. LFTs are normal. Li pase normal. 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 He has just undergone recent upper and lower end oscopy less than 2 weeks ago. I do not see any value in repeating these exams today. It is unlikely to provide us with any new information. Definitive therapy would be to have reconnection of his ost althea to his rectal stump and that would resolve the diversion colitis. I think it is less likely that he has active ulcerative colitis as this has not responded to steroids and topical therapy, and over all he seems to not be responding well to medical therapy for diversion colitis, although is having t rouble getting his short-chain fatty acids. This may be helpful. The patient has a duodenal polyp; biopsy showed benign. The patient does want the polyp to be removed and he is to be scheduled with Devendra King. PLAN: 1. Can give repeat trial of hydrocortisone enemas, as the Rowasa has not been effective recently. 2. The patient to begin his short-chain fatty acid enemas when available. 3. Recommend symptomatic therapy, as he has responded previously to benzodiazepines. Restart his Va lium for his spasm and abdominal pain. 4. The patient is to follow up with his surgeon regarding reconnection. 5. He should follow up with outpatient Gastroenterology. Thank you for this consultation. /[id number]/MODL
[2018-09-12] MEDS ORDERED: HYDROmorphONE/DILAUDID 1 MG/ML INJ IVP PRN (16:41)
[2018-09-12] MEDS: ONDANSETRON 4 MG/2 ML VIAL IVP PRN (16:59)
[2018-09-12] MEDS ORDERED: LIDOCAINE HCL 4% TOPICAL SOLN 50ML MM PRN (19:35)
--- NOTE | 2018-09-12 19:52 | HOSPPROG ---
Hospitalist Progress Note Assessment/Plan: 1. Abdominal pain, nausea - Unclear etiology, s/p extensive evaluation at admission earlier this month - Continue home medications (PO Dilaudid, PO Valium) - Dilaudid IV for breakthrough - hold IVF for now, but gave a bolus - anti-emetics PRN 2. Ulcerative colitis -stopped mesalamine at his request -nursing orders for enemas -Spoke with Dr Rogel and she will see him today -spoke with pharm prev re options for SCFA enemas, called [facility]-they don't compound this -also his cream that he uses for spasm is , it is NF, so will try other options 3. Hx C5 injury - With retained mobility of LUE. He currently resides at [facility] while awaiting arrangement of an apartment with appropriate home health services. - Ostomy and SPT in place -CM to speak with BM rep re his care plan/needs and pts concerns/issues 4. Normocytic anemia - Relatively stable - Monitor CBC -poor nutritional status with low alb/protein -suspect multi-factorial 5. Hx DVT - Patient admitted at [facility] 2 months ago for extensive, bilateral DVTs. He has been on therapeutic Lovenox since. - Continue therapeutic Lovenox Diet - Clears, ADAT Code - Full Ppx - Therapeutic dose Lovenox Dispo - > 2 mdnts due to ongoing pain requiring IV pain medications Subjective: On going nausea, says he can't eat or drink bc of nausea and pain. Wants to see GI, Dr Rogel called to consult. Objective: Vital Signs Temp Pulse Resp BP Pulse Ox 98.1 F 83 13 102/78 97 09/12/18 16:00 09/12/18 16:00 09/12/18 16:00 09/12/18 16:00 09/12/18 16:00 Laboratory Results 09/12/18 12:42 09/12/18 12:42 09/11/18 09/12/18 09/13/18 11:59 11:59 11:59 Intake Total 480 1600 Output Total 1150 900 Balance -670 700 - Time Spent With Patient Time Spent with Patient: greater than 35 minutes Time Spent with Patient: Greater than 35 minutes spent on this patients care, greater than 50% of time spent counseling, educating, and coordinating care regarding the above mentioned plan. - Physical Exam Constitutional: chronically ill appearing, obese Eyes: anicteric sclera Ears, Nose, Mouth, Throat: dry mucous membranes Cardiovascular: regular rate and rhythym, no murmur, rub, or gallop Respiratory: no respiratory distress, no rales or rhonchi, clear to auscultation Gastrointestinal: tenderness Skin: warm Psychiatric: not encephalopathic ICD10 Worksheet Patient Problems: Problems Problem Status Onset Abdominal pain Acute Nausea Acute Rectal bleeding Acute
[2018-09-12] MEDS: NITROGLYCERIN 2% 1 GM PACKET TP SCH (20:53)
[2018-09-13] MEDS: DIAZEPAM 5 MG TAB PO PRN ×3 (04:34→17:25)
[2018-09-13] MEDS: HYDROmorphONE/DILAUDID 2 MG TAB PO PRN ×3 (04:34→17:25)
[2018-09-13] MEDS: PROMETHAZINE HCL 25 MG/ML INJ IVP PRN (05:12)
[2018-09-13] MEDS: CHOLECALCIFEROL VIT D3 1,000 UNITS TAB PO SCH (09:28)
[2018-09-13] MEDS: ENOXAPARIN 100 MG/ML SYR SC SCH ×2 (09:28→20:33)
[2018-09-13] MEDS: SENNOSIDES 1 TAB PO SCH (09:28)
[2018-09-13] MEDS: MULTIVITAMINS 1 EACH TAB PO SCH (09:28)
[2018-09-13] MEDS: FAMOTIDINE 20 MG TAB PO SCH ×2 (09:28→23:21)
[2018-09-13] MEDS: PANTOPRAZOLE SODIUM 40 MG VIAL IVP SCH (09:28)
[2018-09-13] MEDS: MBX SOLN 30 ML BOTTLE PO SCH ×2 (09:29→21:32)
[2018-09-13] MEDS: NITROGLYCERIN 2% 1 GM PACKET TP SCH (09:31)
[2018-09-13] MEDS ORDERED: SCOPOLAMINE HYDROBROMIDE 1 MG/3 DAYS PATCH TD ONE ×2 (09:59→11:45)
[2018-09-13] MEDS ORDERED: NITROGLYCERIN 2% 1 GM PACKET TP PRN (10:00)
[2018-09-13] MEDS ORDERED: NS 1,000 ML IV ONE (10:00)
--- NOTE | 2018-09-13 10:03 | HOSPPROG ---
Hospitalist Progress Note Assessment/Plan: 1. Abdominal pain, nausea - Unclear etiology, s/p extensive evaluation at admission earlier this month - Continue home medications (PO Dilaudid, PO Valium) - Dilaudid IV for breakthrough - has no IV access for fluids, unable to get a lab draw either -PICC ordered - anti-emetics PRN -consult discussed with Dr Fragoso, appreciate her input -advised him that he must eat/drink or would need to consider TPN or PEG -suggest trying to coordinate a transfer if possible Mon -Dr Katie Navarro [phone] is his prev CR surgeon at [facility] [phone] 2. Ulcerative colitis -stopped mesalamine at his request -nursing orders for enemas -Dr Rogel consult noted, saw Dr King at [facility] admit-consider asking him to re-eval during the week if he stays at [facility] -spoke with pharm prev re options for SCFA enemas, called [facility]-they don't compound this. Can check with [facility] to [facility] during the week -also his cream that he uses for spasm is , it is NF and he declined nitropaste (was told to only use that in an emergency bc of his low BP) 3. Hx C5 injury - With retained mobility of LUE. He currently resides at [facility] while awaiting arrangement of an apartment with appropriate home health services. - Ostomy and SPT in place -CM was in contact with [facility] rep re his care plan/needs and pts concerns/issues 4. Normocytic anemia - Relatively stable - Monitor CBC -poor nutritional status with low alb/protein -suspect multi-factorial -dietary consult ([place] if may need TPN/PEG if continues to not have PO intake) 5. Hx DVT - Patient admitted at [facility] 2 months ago for extensive, bilateral DVTs. He has been on therapeutic Lovenox since. - Continue therapeutic Lovenox Diet - Clears, ADAT Code - Full Ppx - Therapeutic dose Lovenox Dispo - > 2 mdnts due to ongoing pain requiring IV pain medications, ongoing inability to eat/drink, possible transfer to [facility] Subjective: He says unable to eat or drink bc of nausea and ongoing pain. He is very frustrated that he has these ongoing sxs. Per nursing- enemas done yesterday and putrid materials came out. No vomiting. Says GI Dr was no help and he wants to go to [place] for care/eval. Objective: Vital Signs Temp Pulse Resp BP Pulse Ox 98.3 F 84 14 93/67 L 97 09/13/18 08:00 09/13/18 08:00 09/13/18 08:00 09/13/18 08:00 09/13/18 08:00 Laboratory Results 09/12/18 12:42 09/12/18 12:42 09/11/18 09/12/18 09/13/18 11:59 11:59 11:59 Intake Total 480 2000 Output Total 1150 1750 Balance -670 250 - Time Spent With Patient Time Spent with Patient: greater than 35 minutes Time Spent with Patient: Greater than 35 minutes spent on this patients care, greater than 50% of time spent counseling, educating, and coordinating care regarding the above mentioned plan. - Physical Exam Constitutional: obese Eyes: anicteric sclera Ears, Nose, Mouth, Throat: moist mucous membranes, hearing normal Cardiovascular: regular rate and rhythym, no murmur, rub, or gallop Respiratory: no respiratory distress, no rales or rhonchi, clear to auscultation Gastrointestinal: normoactive bowel sounds, tenderness (throughout) Psychiatric: not encephalopathic, anxious ICD10 Worksheet Patient Problems: Problems Problem Status Onset Abdominal pain Acute Nausea Acute Rectal bleeding Acute
--- NOTE | 2018-09-13 10:52 | SOAPPROG ---
DAV Progress Note Assessment/Plan: Assessment: Full dictation to follow In short C5 with ulcerative colitis Had history of wound healing in perineum Now with progressive diversion colitis. 2nd hospital admission and symptoms are worse Can either perform reanastomosis which can create problems with bowel protocol and C5 issues Can resect rectal stump - understand hesitation with prior wound issues although this has been 3 years ago Trial of short chain fatty acids did not seem to have retirement results Recommend transfer to [facility] due to complexity of this case and that he is already established with colorectal surgeon there Do not think this can wait as an outpatient eval as he has increased nausea, mucous and blood. Not tolerating diet Plan: 09/13/18 10:49 Objective: Vital Signs Temp Pulse Resp BP Pulse Ox 36.8 C 84 14 93/67 L 97 09/13/18 08:00 09/13/18 08:00 09/13/18 08:00 09/13/18 08:00 09/13/18 08:00 Laboratory Results 09/12/18 12:42 09/12/18 12:42 09/12/18 09/13/18 09/14/18 05:59 05:59 05:59 Intake Total 480 1800 200 Output Total 2900 Balance 480 -1100 200 ICD10 Worksheet Patient Problems: Problems Problem Status Onset Abdominal pain Acute Nausea Acute Rectal bleeding Acute
--- NOTE | 2018-09-13 14:30 | GCON ---
DATE OF CONSULTATION: 09/13/2018 CHIEF COMPLAINT: Diversion colitis. HISTORY OF PRESENT ILLNESS: 43-year-old with C5 paraplegia and ulcerative colitis. He has been admi tted to the hospital multiple times over this. This is his most recent episode. He was initially at [facility] and was scheduled to see his outpatient colorectal surgeon; however, due to his coliti s worsening, he was readmitted. He has tried small chain fatty acids. At his last hospitalization, he had an EGD and flexible sig and the rectal stump showed a question of colitis. Biopsies confirmed this. His mucus discharge has increased, and he continues to have bleeding. ASSESSMENT/PLAN: I was asked to consult with the patient, and I spent about 20 minutes [id number] discussing this. Typically for diversion colitis, the way to alleviate these symptoms is to perform reanastomosis. However, in his case with his paraplegia, he would then have to do a major bowel prot ocol. This may end up being more difficult for him. He does not particularly like his ostomy, altho ugh he is used to it. Another option would be to remove the rectal stump. I reviewed his old record s. He also reports at his last surgery, he did have difficulty with healing the perineum. I do thin k that his care would be better managed by the colorectal surgeons who were initially involved in his case. This is a very difficult problem due to balancing ulcerative colitis with his paraplegia and having diversion colitis. I recommend that he be transferred for their expertise. /[id number]/MODL
[2018-09-13] MEDS ORDERED: NS 500 ML IV ONE (21:19)
[2018-09-13] MEDS: HYDROmorphONE/DILAUDID 1 MG/ML INJ IVP PRN ×2 (21:27→23:28)
[2018-09-13] MEDS: D5W 1/2 NS 1,000 ML IV SCH (22:28)
[2018-09-13] MEDS: ONDANSETRON 4 MG/2 ML VIAL IVP PRN (22:31)
[2018-09-13] MEDS: PANTOPRAZOLE SODIUM 40 MG TAB PO SCH (23:22)
[2018-09-14] MEDS: PROMETHAZINE HCL 25 MG/ML INJ IVP PRN ×3 (02:12→16:54)
[2018-09-14] MEDS: HYDROmorphONE/DILAUDID 1 MG/ML INJ IVP PRN ×6 (02:13→20:17)
[2018-09-14] MEDS: DIAZEPAM 5 MG TAB PO PRN ×4 (02:41→23:52)
[2018-09-14] MEDS: D5W 1/2 NS 1,000 ML IV SCH ×2 (05:56→17:59)
[2018-09-14] MEDS ORDERED: PATCH REMOVAL 1 EA PATCH TD ONE (09:59)
[2018-09-14] MEDS: SENNOSIDES 1 TAB PO SCH (10:16)
[2018-09-14] MEDS: MULTIVITAMINS 1 EACH TAB PO SCH (10:16)
[2018-09-14] MEDS: MBX SOLN 30 ML BOTTLE PO SCH ×2 (10:17→20:47)
[2018-09-14] MEDS: FAMOTIDINE 20 MG TAB PO SCH ×2 (10:21→20:23)
[2018-09-14] MEDS: PANTOPRAZOLE SODIUM 40 MG TAB PO SCH ×2 (10:22→20:23)
[2018-09-14] MEDS: CHOLECALCIFEROL VIT D3 1,000 UNITS TAB PO SCH (10:22)
[2018-09-14] MEDS: ENOXAPARIN 100 MG/ML SYR SC SCH ×2 (12:50→20:21)
--- NOTE | 2018-09-14 13:43 | ASMTCMCOM ---
CM Note CM Note Notes: There had been discussion of transfering patient to [place] for a procedure not offered at [facility]; however, this is on hold while the providers discuss alternate therapies. There is a short chain fatty acid enema that patient has used in the past that pharmacy might try to obtain (it's not formulated in-house). Case Management will continue to follow. Current CM Discharge plan: transfer to [place] or back to [facility] Date Signed: 09/14/2018 01:42 PM Electronically Signed By:Mamie Varela RN
[2018-09-14] MEDS: HYDROmorphONE/DILAUDID 2 MG TAB PO PRN (14:39)
[2018-09-14] MEDS: fentaNYL 12 MCG PATCH TD SCH (16:54)
--- NOTE | 2018-09-14 17:01 | SOAPPROG ---
DAV Progress Note Assessment/Plan: Assessment/Plan: 43yo M with multiple hospitalizations for abdominal pain, found to have diversion colitis. C5 paraplagia. Ulcerative colitis - Can either perform reanastomosis which can create problems with bowel protocol and C5 issues - Can resect rectal stump - understand hesitation with prior wound issues although this has been 3 years ago - Trial of short chain fatty acid (SCFA) enemas have helped him previously, but these are difficult to obtain so he hasn't used them in several months because he couldn't get his prescription filled - Dr. Fragoso recommend transfer to [place] due to complexity of this case and that he is already established with colorectal surgeon there - patient would like to stay at [facility] for a trial of SCFA enemas. If this fails, he is open to transfer to [place] for surgery (reanastomosis). - Continue enemas for symptomatic relief. - Trial SCFA enemas - must be compounded by [facility]. - Diet as tolerated - Appreciate hospitalist management. Will follow peripherally - Discussed with Dr. Palacio and pharmacy Subjective: He does continue to have nausea and rectal pain, but reports this is stable and not worsening. Feels pressure in his rectum and would like an enema or colonoscopy to clear all the mucous out. Pain is currently controlled. Objective: General: laying in bed, comfortable, NAD Lungs: No increased work of breathing Cardiac: no peripheral edema Abdomen: Bowel sounds present, soft and non tender. Colostomy. Skin: Warm and dry. Neuro: paraplegic - use of LUE Objective: Vital Signs Temp Pulse Resp BP Pulse Ox 36.5 C 83 16 96/54 L 99 09/14/18 15:21 09/14/18 15:21 09/14/18 15:21 09/14/18 15:21 09/14/18 15:21 Laboratory Results 09/12/18 12:42 09/12/18 12:42 09/13/18 09/14/18 09/15/18 05:59 05:59 05:59 Intake Total 1800 2100 2759 Output Total 2900 2100 1450 Balance -1100 0 1309 ICD10 Worksheet Patient Problems: Problems Problem Status Onset Abdominal pain Acute Nausea Acute Rectal bleeding Acute
--- NOTE | 2018-09-14 17:24 | HOSPPROG ---
Hospitalist Progress Note Assessment/Plan: DIAGNOSES: * intractable nausea vomiting abdominal pain * diversion colitis * complicated history of chronic inflammatory bowel disease (UC) with multiple prior surgeries and reversal surgeries, ostomy in place * history of some type of congenital cardiac defect recently treated at [facility], he does not remember the name of the abnormality or the procedure but it sounds like a septal defect of some kind was closed * C5 injury with retained mobility of left upper extremity otherwise currently plegic in the limbs and trunk * normocytic anemia * hypoalbuminemia with at least moderate protein calorie malnutrition I have discussed the case in detail at long length with Magui Hsu at the bedside today. His situation is certainly complex. No definite easy solution. The patient has stated that small chain fatty acid enemas have helped him in the past and would like to try that. It has been recommended here that he be transferred to [facility] to visit his surgeon there but he is reluctant to engage in any surgical evaluations at this time. We are able to contact the pharmacy in [address] where they can compound small change fatty acid enemas and they are going to do that and send them to [place] hopefully by tomorrow if we can try them. At this point he has ongoing pain and nausea that are poorly controlled. PLANS: * Change Phenergan to q.6 hours scheduled for better nausea control * He states Haldol has worked for nausea in the past but I would like to see his most recent EKG and echocardiogram before we consider that * Trial of short chain fatty acid enemas when they can get here * Continue to work with surgical scheduler and the patient on whether he should be transferred to Specialty surgical care at [facility] SUBJECTIVE: Ongoing uncontrolled pain and nausea. No chills or sweats OBJECTIVE Vitals reviewed: Stable vitals overall without fever Exam: alert oriented skin warm dry color ok resps not labored lungs clear BSs heart regular abd colostomy in place looks good. Bowel sounds present. Nondistended little tenderness limbs warm, no edema iv site ok Objective: Vital Signs Temp Pulse Resp BP Pulse Ox 36.5 C 83 16 96/54 L 99 09/14/18 15:21 09/14/18 15:21 09/14/18 15:21 09/14/18 15:21 09/14/18 15:21 Laboratory Results 09/12/18 12:42 09/12/18 12:42 09/13/18 09/14/18 09/15/18 06:59 06:59 06:59 Intake Total 1800 2100 2759 Output Total 2900 2100 1450 Balance -1100 0 1309 - Time Spent With Patient Time Spent with Patient: greater than 35 minutes Time Spent with Patient: Greater than 35 minutes spent on this patients care, greater than 50% of time spent counseling, educating, and coordinating care regarding the above mentioned plan. ICD10 Worksheet Patient Problems: Problems Problem Status Onset Abdominal pain Acute Nausea Acute Rectal bleeding Acute
[2018-09-14] MEDS: PROMETHAZINE HCL 25 MG/ML INJ IVP SCH ×2 (19:36→23:45)
[2018-09-15] MEDS: HYDROmorphONE/DILAUDID 1 MG/ML INJ IVP PRN ×5 (00:10→21:35)
[2018-09-15] MEDS: PROMETHAZINE HCL 25 MG/ML INJ IVP SCH ×3 (06:31→17:41)
[2018-09-15] MEDS: D5W 1/2 NS 1,000 ML IV SCH ×2 (06:38→17:47)
[2018-09-15] MEDS: FAMOTIDINE 20 MG TAB PO SCH ×2 (08:16→20:43)
[2018-09-15] MEDS: CHOLECALCIFEROL VIT D3 1,000 UNITS TAB PO SCH (08:17)
[2018-09-15] MEDS: MULTIVITAMINS 1 EACH TAB PO SCH (08:17)
[2018-09-15] MEDS: ENOXAPARIN 100 MG/ML SYR SC SCH ×2 (08:18→20:43)
[2018-09-15] MEDS: PANTOPRAZOLE SODIUM 40 MG TAB PO SCH ×2 (08:18→20:42)
[2018-09-15] MEDS: SENNOSIDES 1 TAB PO SCH (08:18)
[2018-09-15] MEDS: DIAZEPAM 5 MG TAB PO PRN ×2 (08:30→21:35)
[2018-09-15] MEDS: MBX SOLN 30 ML BOTTLE PO SCH ×3 (10:25→20:47)
--- NOTE | 2018-09-15 19:04 | HOSPPROG ---
Hospitalist Progress Note Assessment/Plan: DIAGNOSES: * intractable nausea vomiting abdominal pain * diversion colitis * complicated history of chronic inflammatory bowel disease (UC) with multiple prior surgeries and reversal surgeries, ostomy in place * history of some type of congenital cardiac defect recently treated at [facility], he does not remember the name of the abnormality or the procedure but it sounds like a septal defect of some kind was closed * C5 injury with retained mobility of left upper extremity otherwise currently plegic in the limbs and trunk * normocytic anemia, chronic * hypoalbuminemia with at least moderate protein calorie malnutrition Again the patient's symptoms remain poorly controlled our options are very limited. It is been recommended by GI and surgery that he be transferred to [facility] for consideration of revision surgery with his surgeon there. However the patient at this point is still declining to be transferred wishes to be cared for here if possible and would like to try resuming small chain fatty acid enemas which have worked for him in the past. He is not use them for some months now. We have arranged for a compounding pharmacy in [place] to send some of these which is family will bring in. It sounds like from reports we are expecting the small chain fatty acids to arrive here tomorrow. These would [facility] PLANS: * Continue Phenergan to q.6 hours scheduled for better nausea control * Trial of short chain fatty acid enemas when they can get here, presumably tomorrow * If patient does not improve may need to push harder for him to consider transfer to his surgeon at [facility] * Dr Katie Navarro [phone] is his prev CR surgeon at [facility] * For now continue with Phenergan as his nausea medicine, however if this becomes ineffective would trying get records from [facility] regarding his most recent echo in EKG to determine if Zofran or Haldol are safe SUBJECTIVE: Ongoing uncontrolled pain and nausea, though nausea is better today with scheduled Phenergan IV dosing compared to yesterday. Today the pain is more it is rectum and anus any feels that he needs some"flushes"there which she uses at home. No chills or sweats Is taking in some soup in small volume so far The patient's small chain fatty acid enemas have not yet arrived. OBJECTIVE Vitals reviewed: Stable vitals overall without fever Exam: alert oriented skin warm dry color ok resps not labored lungs clear BSs heart regular abd colostomy in place looks good. Bowel sounds present. Nondistended little tenderness limbs warm, no edema iv site ok Objective: Vital Signs Temp Pulse Resp BP Pulse Ox 36.5 C 88 16 100/61 96 09/15/18 08:00 09/15/18 08:00 09/15/18 08:00 09/15/18 08:00 09/15/18 08:00 Laboratory Results 09/12/18 12:42 09/12/18 12:42 09/14/18 09/15/18 09/16/18 06:59 06:59 06:59 Intake Total 2100 3109 Output Total 2100 3000 1650 Balance 0 109 -1650 ICD10 Worksheet Patient Problems: Problems Problem Status Onset Abdominal pain Acute Nausea Acute Rectal bleeding Acute
[2018-09-15] MEDS: ONDANSETRON 4 MG/2 ML VIAL IVP PRN (20:42)
[2018-09-16] MEDS: HYDROmorphONE/DILAUDID 1 MG/ML INJ IVP PRN ×7 (00:16→22:08)
[2018-09-16] MEDS: D5W 1/2 NS 1,000 ML IV SCH ×2 (00:17→09:04)
[2018-09-16] MEDS: PROMETHAZINE HCL 25 MG/ML INJ IVP SCH ×4 (00:17→18:54)
[2018-09-16] MEDS: CEPACOL LOZENGE PO PRN (05:31)
[2018-09-16] MEDS: FAMOTIDINE 20 MG TAB PO SCH ×2 (08:57→21:42)
[2018-09-16] MEDS: ENOXAPARIN 100 MG/ML SYR SC SCH ×2 (08:57→21:43)
[2018-09-16] MEDS: CHOLECALCIFEROL VIT D3 1,000 UNITS TAB PO SCH (08:57)
[2018-09-16] MEDS: SENNOSIDES 1 TAB PO SCH (08:57)
[2018-09-16] MEDS: MULTIVITAMINS 1 EACH TAB PO SCH (08:57)
[2018-09-16] MEDS: PANTOPRAZOLE SODIUM 40 MG TAB PO SCH ×2 (08:57→21:42)
[2018-09-16] MEDS: MBX SOLN 30 ML BOTTLE PO SCH ×2 (08:57→21:43)
[2018-09-16] MEDS: DIAZEPAM 5 MG TAB PO PRN ×2 (11:21→22:08)
--- NOTE | 2018-09-16 13:30 | ASMTCMCOM ---
CM Note CM Note Notes: Patient plan of care reviewed in am rounds. He is a 43 year old paraplegic who normally resides at [facility]. He had surgery for his ostomy at [facility] and may likely have to transfer at some point if he fails to improve. CM to follow for needs. Plan: To [facility] versus return to [facility]. Date Signed: 09/16/2018 01:29 PM Electronically Signed By:Elizabeth Cui RN
[2018-09-16] MEDS ORDERED: POLYETHYLENE GLYCOL 3350 17 GM PKT PO ONE (16:12)
--- NOTE | 2018-09-16 16:16 | HOSPPROG ---
Hospitalist Progress Note Assessment/Plan: 43 yo M w quadriplegia 1. Abdominal pain, nausea - Unclear etiology, s/p extensive evaluation at admission earlier this month - Continue home medications (PO Dilaudid, PO Valium) -Dr Katie Navarro [phone] is his prev CR surgeon at [facility] [phone] trial of miralax given firm stool in bag ultimately aim to limit narcotics 2. Ulcerative colitis -stopped mesalamine at his request -nursing orders for enemas -Dr Rogel consult noted, saw Dr King at prev admit-consider asking him to re-eval during the week if he stays at [facility] have apparently arrive here, waiting for pharmacy to process 3. Hx C5 injury - With retained mobility of [place]. He currently resides at [facility] while awaiting arrangement of an apartment with appropriate home health services. - Ostomy and SPT in place - was in contact with [facility] rep re his care plan/needs and pts concerns/issues 4. Normocytic anemia - Relatively stable - Monitor CBC -poor nutritional status with low alb/protein -suspect multi-factorial -dietary consult (elham if may need TPN/PEG if continues to not have PO intake) 5. Hx DVT - Patient admitted at [facility] 2 months ago for extensive, bilateral DVTs. He has been on therapeutic Lovenox since. - Continue therapeutic Lovenox Diet - Clears, ADAT Code - Full Ppx - Therapeutic dose Lovenox Subjective: ongoing poor appetite and abd pain Objective: Vital Signs Temp Pulse Resp BP Pulse Ox 36.4 C 74 14 102/62 97 09/16/18 07:58 09/16/18 07:58 09/16/18 07:58 09/16/18 07:58 09/16/18 07:58 Laboratory Results 09/12/18 12:42 09/12/18 12:42 09/15/18 09/16/18 09/17/18 05:59 05:59 05:59 Intake Total 3109 1962 Output Total 2300 4100 900 Balance 394 -1629 -365 - Physical Exam Constitutional: no apparent distress, appears nourished Eyes: PERRL, anicteric sclera Ears, Nose, Mouth, Throat: moist mucous membranes, hearing normal Cardiovascular: regular rate and rhythym, no murmur, rub, or gallop Respiratory: no respiratory distress, no rales or rhonchi Gastrointestinal: normoactive bowel sounds, soft, non-tender abdomen, other ( firm stool in bag) Genitourinary: no bladder fullness, luo in urethra, other (SP tube) Skin: warm, normal color Musculoskeletal: No full muscle strength Neurologic: AAOx3 ICD10 Worksheet Patient Problems: Problems Problem Status Onset Abdominal pain Acute Nausea Acute Rectal bleeding Acute
[2018-09-16] MEDS: HYDROmorphONE/DILAUDID 2 MG TAB PO PRN (16:45)
[2018-09-16] MEDS: [UNRECOGNIZED DRUG - OTHER] PR SCH (22:14)
[2018-09-17] MEDS: HYDROmorphONE/DILAUDID 2 MG TAB PO PRN ×2 (00:12→18:49)
[2018-09-17] MEDS: DIAZEPAM 5 MG TAB PO PRN ×2 (00:12→22:33)
[2018-09-17] MEDS: PROMETHAZINE HCL 25 MG/ML INJ IVP SCH ×5 (01:28→23:49)
[2018-09-17] MEDS: HYDROmorphONE/DILAUDID 1 MG/ML INJ IVP PRN ×3 (03:47→13:08)
[2018-09-17] MEDS: FAMOTIDINE 20 MG TAB PO SCH ×2 (09:08→22:07)
[2018-09-17] MEDS: ENOXAPARIN 100 MG/ML SYR SC SCH ×2 (09:09→22:07)
[2018-09-17] MEDS: CHOLECALCIFEROL VIT D3 1,000 UNITS TAB PO SCH (09:09)
[2018-09-17] MEDS: PANTOPRAZOLE SODIUM 40 MG TAB PO SCH ×2 (09:09→22:08)
[2018-09-17] MEDS: SENNOSIDES 1 TAB PO SCH (09:09)
[2018-09-17] MEDS: MULTIVITAMINS 1 EACH TAB PO SCH (09:09)
[2018-09-17] MEDS: MBX SOLN 30 ML BOTTLE PO SCH ×2 (09:48→23:49)
[2018-09-17] MEDS: [UNRECOGNIZED DRUG - OTHER] PR SCH (10:06)
--- NOTE | 2018-09-17 15:18 | HOSPPROG ---
Hospitalist Progress Note Assessment/Plan: 43 yo M w quadriplegia 1. Abdominal pain, nausea - Unclear etiology, s/p extensive evaluation at admission earlier this month - Continue home medications (PO Dilaudid, PO Valium) he attributes all of pain to diversion colitis (proctitis) but sx are upper minimal ostomy output will give miralax q2h X 3 dose this PM abd film in am he has been diagnosed w gastroparesis previously, no real effect from pro motility agents await effect of SVFA enema limit IV narcotics -Dr Katie Navarro [phone] is his prev CR surgeon at [facility] [phone] 2. Ulcerative colitis -stopped mesalamine at his request -nursing orders for enemas -Dr Rogel consult noted, saw Dr King at prev admit-consider asking him to re-eval during the week if he stays at [facility] have apparently arrive here, waiting for pharmacy to process 3. Hx C5 injury - With retained mobility of [facility]. He currently resides at [facility] while awaiting arrangement of an apartment with appropriate home health services. - Ostomy and SPT in place -CM was in contact with [facility] rep re his care plan/needs and pts concerns/issues 4. Normocytic anemia - Relatively stable - Monitor CBC -poor nutritional status with low alb/protein -suspect multi-factorial -dietary consult ([place] if may need TPN/PEG if continues to not have PO intake) 5. Hx DVT - Patient admitted at [facility] 2 months ago for extensive, bilateral DVTs. He has been on therapeutic Lovenox since. - Continue therapeutic Lovenox Diet - Clears, ADAT Code - Full Ppx - Therapeutic dose Lovenox Subjective: still w abd pain, poor po intake. [facility] started Objective: Vital Signs Temp Pulse Resp BP Pulse Ox 36.8 C 76 18 95/57 L 97 09/17/18 08:00 09/17/18 08:00 09/17/18 08:00 09/17/18 08:00 09/17/18 08:00 Laboratory Results 09/12/18 12:42 09/12/18 12:42 09/16/18 09/17/18 09/18/18 05:59 05:59 05:59 Intake Total 1961 1680 120 Output Total 4100 1425 Balance -2138 255 120 - Physical Exam Constitutional: no apparent distress, appears nourished Eyes: PERRL, anicteric sclera Ears, Nose, Mouth, Throat: moist mucous membranes, hearing normal Cardiovascular: regular rate and rhythym, no murmur, rub, or gallop Respiratory: no respiratory distress, no rales or rhonchi Gastrointestinal: normoactive bowel sounds, No guarding, No rebound Genitourinary: no bladder fullness, luo in urethra Skin: warm, normal color Musculoskeletal: No full muscle strength Neurologic: AAOx3 ICD10 Worksheet Patient Problems: Problems Problem Status Onset Abdominal pain Acute Nausea Acute Rectal bleeding Acute
--- NOTE | 2018-09-17 15:35 | ASMTCMCOM ---
CM Note CM Note Notes: Plan of care reviewed in rounds. Patient to have non formulary enemas to help with constipation and promote motility. May need transfer to [facility] if no improvement, CM to follow. Plan: To [facility] when medically stable. Patient plan of care reviewed in am rounds. He is a 43 year old paraplegic who normally resides at [facility]. He had surgery for his ostomy at [facility] and may likely have to transfer at some point if he fails to improve. CM to follow for needs. Date Signed: 09/17/2018 03:34 PM Electronically Signed By:Elizabeth Cui RN
[2018-09-17] MEDS: POLYETHYLENE GLYCOL 3350 17 GM PKT PO SCH ×3 (15:50→22:06)
[2018-09-17] MEDS: fentaNYL 12 MCG PATCH TD SCH (16:33)
[2018-09-17] MEDS: HYDROmorphONE/DILAUDID 1 MG/ML INJ IVP SCH (23:54)
[2018-09-18] MEDS: PROMETHAZINE HCL 25 MG/ML INJ IVP SCH ×4 (04:44→23:12)
[2018-09-18 05:04] LABS: PLATELET COUNT 335 10^3/uL (150-400)
[2018-09-18] MEDS: HYDROmorphONE/DILAUDID 4 MG TAB PO PRN ×2 (07:44→17:51)
[2018-09-18] MEDS: MULTIVITAMINS 1 EACH TAB PO SCH (09:13)
[2018-09-18] MEDS: HYDROmorphONE/DILAUDID 1 MG/ML INJ IVP SCH (09:14)
[2018-09-18] MEDS: ONDANSETRON 4 MG/2 ML VIAL IVP PRN (09:22)
[2018-09-18] MEDS: MBX SOLN 30 ML BOTTLE PO SCH ×2 (09:43→22:19)
[2018-09-18] MEDS: [UNRECOGNIZED DRUG - OTHER] PR SCH ×3 (10:01→23:17)
[2018-09-18] MEDS: PANTOPRAZOLE SODIUM 40 MG TAB PO SCH ×2 (10:01→22:19)
[2018-09-18] MEDS: CHOLECALCIFEROL VIT D3 1,000 UNITS TAB PO SCH (10:02)
[2018-09-18] MEDS: ENOXAPARIN 100 MG/ML SYR SC SCH (10:02)
[2018-09-18] MEDS: FAMOTIDINE 20 MG TAB PO SCH ×2 (10:02→22:19)
--- NOTE | 2018-09-18 11:00 | HOSPPROG ---
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 * complicated history of chronic inflammatory bowel disease (UC) with multiple prior surgeries and reversal surgeries, ostomy in place * recent DVT about 8 weeks ago * history of some type of congenital cardiac defect recently treated at [facility], he does not remember the name of the abnormality or the procedure but it sounds like a septal defect of some kind was closed * old C5 injury with retained mobility of left upper extremity otherwise currently plegic in the limbs and trunk * normocytic anemia, chronic * hypoalbuminemia with at least moderate protein calorie malnutrition Again the patient's symptoms remain poorly controlled our options are very limited. It is been recommended by GI and surgery that he be transferred to [facility] for consideration of revision surgery with his surgeon there. However the patient at this point is still declining to be transferred wishes to be cared for here if possible and would like to try resuming small chain fatty acid enemas which have worked for him in the past. He is not use them for some months now. We have arranged for a compounding pharmacy in [place] to send some of these which is family will bring in. It sounds like from reports we are expecting the small chain fatty acids to arrive here tomorrow. These would be [facility] "[facility]fashion [facility] PLANS: * Continue Phenergan to q.6 hours, add scheduled Zofran doses, check EKG to see if it seems safe to give Haldol for nausea from a cardiac standpoint * Trial of short chain fatty acid enemas ongoing * If patient does not improve may need to push harder for him to consider transfer to his surgeon at [facility]; it will be either that or he will be discharged without any other therapy as there is really nothing else 1st offer * Dr Katie Navarro [phone] is his prev CR surgeon at [facility] * We are switching his anticoagulant for the moment to IV heparin due to difficulty with dosing of Lovenox with his shifting weight I reviewed in detail today with Dr. Katarina Brandon Seen by me today on hospitals rounds as well as multidisciplinary rounds SUBJECTIVE: He states ongoing uncontrolled pain still using IV narcotic which was restarted again last night at midnight He states ongoing severe nausea uncontrolled with scheduled q.6 hours Phenergan , though we have no noted emesis here during this hospitalization States he is taking in some soup broth Has now had 3 doses of small change fatty acid enema and he thinks he may be starting to get some degree of relief but not much, yet he remains optimistic that this will be effective Nurses have noted some mucous discharge from his rectal stump OBJECTIVE Vitals reviewed: Stable vitals overall without fever Exam: alert oriented skin warm dry color ok resps not labored lungs clear BSs heart regular abd colostomy in place looks good. Bowel sounds present. Nondistended little tenderness limbs warm, no edema iv site ok 12 lead EKG: I ordered to study today and reviewed the image which shows a sinus rhythm with normal P waves QRS ST and T-waves, normal QT intervals on my assessment of the tracing Lab data: Stable anemia on CBC otherwise unremarkable Potassium remains a bit low at 3.4 otherwise unremarkable metabolic panel Objective: Vital Signs Temp Pulse Resp BP Pulse Ox 37.2 C 87 16 101/84 H 97 09/18/18 07:40 09/18/18 07:40 09/18/18 07:40 09/18/18 07:40 09/18/18 07:40 Laboratory Results 09/18/18 04:50 09/18/18 04:50 09/17/18 09/18/18 09/19/18 06:59 06:59 06:59 Intake Total 1680 920 Output Total 1425 1650 Balance 255 -730 - Time Spent With Patient Time Spent with Patient: greater than 35 minutes Time Spent with Patient: Greater than 35 minutes spent on this patients care, greater than 50% of time spent counseling, educating, and coordinating care regarding the above mentioned plan. ICD10 Worksheet Patient Problems: Problems Problem Status Onset Abdominal pain Acute Nausea Acute Rectal bleeding Acute
[2018-09-18] MEDS ORDERED: HALOPERIDOL LACT 5 MG/ML INJ IVP PRN (13:14)
[2018-09-18] MEDS: ONDANSETRON 4 MG/2 ML VIAL IVP SCH ×3 (13:51→22:19)
--- NOTE | 2018-09-18 14:35 | ASMTCMCOM ---
CM Note CM Note Notes: Zander from [facility] checked in on pt and asked for a referral with updated notes. Referral sent. D/C Plan: [facility] Date Signed: 09/18/2018 02:34 PM Electronically Signed By:Mara Mccoy
[2018-09-18] MEDS: PHENAZOPYRIDINE HCL 200 MG TAB PO SCH (17:49)
--- NOTE | 2018-09-18 20:55 | CPEKG ---
Test Reason : OPEN Blood Pressure : / mmHG Vent. Rate : 077 BPM Atrial Rate : 077 BPM P-R Int : 141 ms QRS Dur : 093 ms QT Int : 396 ms P-R-T Axes : 034 017 017 degrees QTc Int : 449 ms Sinus rhythm Confirmed by Vianney Deleon ([id number]) on 09/18/2018 8:54:50 PM Referred By: Josesito Soliman Confirmed By:Vianney Deleon
[2018-09-18] MEDS ORDERED: HEPARIN 10,000 UNIT/10 ML MDV (1,000 UNIT/ML) IVP PRN (21:00)
[2018-09-18] MEDS: HYDROmorphONE/DILAUDID 1 MG/ML INJ IVP PRN (23:12)
[2018-09-19] MEDS: ONDANSETRON 4 MG/2 ML VIAL IVP SCH ×7 (04:05→21:26)
[2018-09-19 04:51] LABS: PLATELET COUNT 326 10^3/uL (150-400)
[2018-09-19 05:00] LABS: INR 1.4 (0.83-1.16); PROTIME(PATIENT) 17.3 SEC (12.0-15.0)
[2018-09-19] MEDS: PROMETHAZINE HCL 25 MG/ML INJ IVP SCH ×4 (06:35→23:21)
[2018-09-19] MEDS: HYDROmorphONE/DILAUDID 1 MG/ML INJ IVP PRN ×2 (09:42→21:26)
[2018-09-19] MEDS: FAMOTIDINE 20 MG TAB PO SCH ×2 (09:59→23:53)
[2018-09-19] MEDS: PANTOPRAZOLE SODIUM 40 MG TAB PO SCH ×2 (09:59→23:53)
[2018-09-19] MEDS: DIAZEPAM 5 MG TAB PO PRN ×2 (10:06→23:53)
[2018-09-19] MEDS: CHOLECALCIFEROL VIT D3 1,000 UNITS TAB PO SCH (10:11)
[2018-09-19] MEDS: [UNRECOGNIZED DRUG - OTHER] PR SCH ×2 (10:11→23:30)
[2018-09-19] MEDS: PHENAZOPYRIDINE HCL 200 MG TAB PO SCH ×3 (10:11→17:49)
[2018-09-19] MEDS: MULTIVITAMINS 1 EACH TAB PO SCH (10:12)
[2018-09-19] MEDS: MBX SOLN 30 ML BOTTLE PO SCH ×2 (10:12→22:29)
[2018-09-19] MEDS: HYDROmorphONE/DILAUDID 4 MG TAB PO PRN ×3 (11:30→22:31)
--- NOTE | 2018-09-19 12:23 | HOSPPROG ---
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 * complicated history of chronic inflammatory bowel disease (UC) with multiple prior surgeries and reversal surgeries, ostomy in place * recent DVT about 8 weeks ago * history of some type of congenital cardiac defect recently treated at [facility], he does not remember the name of the abnormality or the procedure but it sounds like a septal defect of some kind was closed * old C5 injury with retained mobility of left upper extremity otherwise currently plegic in the limbs and trunk * normocytic anemia, chronic * hypoalbuminemia with at least moderate protein calorie malnutrition At this point the patient is having slow but noticeable daily improvement in his diversion colitis pain with his short chain fatty acid enemas. I reviewed with him again that our options are to continue with this and send him back to half-way facility with ongoing shorten fatty acid treatments, verses going to [facility] for surgery. The euceda will be whether he is going to have adequate control of symptoms with fatty acids. He remains optimistic but agrees that he may not get full relief in may need to consider surgery. At this point his request is that we continue the short chain fatty acids and follow along for a bit longer to see how his response. He feels like it will take closer to a week before he gets a full response. Will work with him over the next day or 2 and decide whether we are going to have him go back to nursing facility or consider transfer to [place]. PLANS: * Continue Phenergan to q.6 hours, scheduled Zofran doses, and p.r.n. Haldol for nausea * Trial of short chain fatty acid enemas ongoing * If patient does not improve may need to push harder for him to consider transfer to his surgeon at [facility]; it will be either that or he will be discharged without any other therapy as there is really nothing else 1st offer * Dr Katie Navarro [phone] is his prev CR surgeon at [facility] * Switched anticoagulant for the moment to IV heparin due to difficulty with dosing of Lovenox with his shifting weight Seen by me today on hospitals rounds as well as multidisciplinary rounds SUBJECTIVE: Nausea somewhat better with current antiemetic medicines Again he notices a slight improvement now as we entered day 3 of the small chain fatty acid enemas in his pain from his rectal stump colitis. He is complaining of pain in his bladder; we did check his bladder yesterday with ultrasound and he is draining quite fully in his catheter is not at all plugged is draining quite normally with no leakage around the catheter, clear yellow urine Appetite slightly better He declined to start the heparin yesterday and had questions about that but after discussing it in detail today he is agreeable to starting up on heparin OBJECTIVE Vitals reviewed: Stable vitals overall without fever Exam: alert oriented skin warm dry color ok resps not labored lungs clear BSs heart regular abd colostomy in place looks good. Bowel sounds present. Nondistended little tenderness limbs warm, no edema iv site ok 12 lead EKG: I ordered to study today and reviewed the image which shows a sinus rhythm with normal P waves QRS ST and T-waves, normal QT intervals on my assessment of the tracing Objective: Vital Signs Temp Pulse Resp BP Pulse Ox 36.6 C 73 17 116/79 97 09/19/18 08:27 09/19/18 08:27 09/19/18 08:27 09/19/18 08:27 09/19/18 08:27 Laboratory Results 09/19/18 04:40 09/18/18 04:50 09/18/18 09/19/18 09/20/18 06:59 06:59 06:59 Intake Total 920 600 Output Total 1650 1005 Balance -730 -405 PT 17.3 SEC (12.0-15.0) H 09/19/18 04:40 INR 1.40 (0.83-1.16) H 09/19/18 04:40 - Time Spent With Patient Time Spent with Patient: greater than 35 minutes Time Spent with Patient: Greater than 35 minutes spent on this patients care, greater than 50% of time spent counseling, educating, and coordinating care regarding the above mentioned plan. ICD10 Worksheet Patient Problems: Problems Problem Status Onset Abdominal pain Acute Nausea Acute Rectal bleeding Acute
[2018-09-19] MEDS: HEPARIN/DEXTROSE 500 ML IV SCH (15:28)
[2018-09-20] MEDS: HEPARIN/DEXTROSE 500 ML IV SCH (02:33)
[2018-09-20] MEDS ORDERED: HYDROmorphONE/DILAUDID 4 MG TAB PO ONE (03:06)
[2018-09-20] MEDS: ONDANSETRON 4 MG/2 ML VIAL IVP SCH ×7 (03:37→22:59)
[2018-09-20] MEDS: PROMETHAZINE HCL 25 MG/ML INJ IVP SCH ×3 (05:57→18:36)
[2018-09-20] MEDS: FAMOTIDINE 20 MG TAB PO SCH ×2 (10:26→21:29)
[2018-09-20] MEDS: PHENAZOPYRIDINE HCL 200 MG TAB PO SCH ×3 (10:26→21:38)
[2018-09-20] MEDS: MULTIVITAMINS 1 EACH TAB PO SCH (10:27)
[2018-09-20] MEDS: PANTOPRAZOLE SODIUM 40 MG TAB PO SCH ×2 (10:27→21:29)
[2018-09-20] MEDS: CHOLECALCIFEROL VIT D3 1,000 UNITS TAB PO SCH (10:27)
[2018-09-20] MEDS: MBX SOLN 30 ML BOTTLE PO SCH ×2 (10:38→21:39)
[2018-09-20] MEDS: HYDROmorphONE/DILAUDID 1 MG/ML INJ IVP PRN ×2 (11:26→21:41)
[2018-09-20] MEDS: DIAZEPAM 5 MG TAB PO PRN ×2 (11:44→21:29)
[2018-09-20] MEDS: [UNRECOGNIZED DRUG - OTHER] PR SCH ×2 (11:45→22:56)
--- NOTE | 2018-09-20 13:46 | ASMTCMCOM ---
CM Note CM Note Notes: Patient plan of care reviewed in am rounds. Complaints of pain remain consistent. He is requesting how his pain medication be delivered. He has had multiple enemas but still complaining of abdominal discomfort. CM to follow for needs, Plan: To SNF when medically cleared for discharge. Date Signed: 09/20/2018 01:46 PM Electronically Signed By:Elizabeth Cui RN
[2018-09-20] MEDS: HYDROmorphONE/DILAUDID 4 MG TAB PO PRN (15:28)
[2018-09-20] MEDS: fentaNYL 12 MCG PATCH TD SCH (15:30)
--- NOTE | 2018-09-20 18:01 | HOSPPROG ---
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 * complicated history of chronic inflammatory bowel disease (UC) with multiple prior surgeries and reversal surgeries, ostomy in place * recent DVT about 8 weeks ago * history of some type of congenital cardiac defect recently treated at [facility], he does not remember the name of the abnormality or the procedure but it sounds like a septal defect of some kind was closed * old C5 injury with retained mobility of left upper extremity otherwise currently plegic in the limbs and trunk * normocytic anemia, chronic * hypoalbuminemia with at least moderate protein calorie malnutrition PLANS: * Continue Phenergan to q.6 hours, scheduled Zofran doses, and p.r.n. Haldol for nausea * He is now willing to take Haldol as needed for nausea * Resume his fentanyl patch today which she is now agreeing to after discussion with me * Continue Trial of short chain fatty acid enemas ongoing * If patient does not improve may need to push harder for him to consider transfer to his surgeon at [facility]; it will be either that or he will be discharged without any other therapy as there is really nothing else 1st offer * Dr Katie Navarro [phone] is his prev CR surgeon at [facility] * Continue IV heparin due to difficulty with dosing of Lovenox with his shifting weight for now Seen by me today on hospitalist rounds as well as multidisciplinary rounds SUBJECTIVE: Today we find that the patient has been refusing his fentanyl patch for the last few days which he had not mention to me nor had the nurses. He states that he has a fear of using fentanyl even though he has been using it for some years, and even know it is making up only a very small portion of his narcotic medication. He has started on heparin drip and this is going well and he has no complaints about that+ Ongoing rectal pain and mucus discharge little change Bladder discomfort seems less today, is taking peridium Eating a little bit better today Still however complains of moderate nausea OBJECTIVE Vitals reviewed: Stable vitals overall without fever Exam: alert oriented skin warm dry color ok resps not labored lungs clear BSs heart regular abd colostomy in place looks good. Bowel sounds present. Nondistended little tenderness limbs warm, no edema Cruz catheter draining clear yellow urine iv site ok Lab data: There is some pyuria of uncertain significance Objective: Vital Signs Temp Pulse Resp BP Pulse Ox 36.8 C 83 18 105/63 90 L 09/20/18 16:00 09/20/18 16:00 09/20/18 16:00 09/20/18 16:00 09/20/18 16:00 Laboratory Results 09/20/18 06:00 09/18/18 04:50 09/19/18 09/20/18 09/21/18 06:59 06:59 06:59 Intake Total 600 Output Total 1005 750 800 Balance -405 -750 -800 PT 17.3 SEC (12.0-15.0) H 09/19/18 04:40 INR 1.40 (0.83-1.16) H 09/19/18 04:40 - Time Spent With Patient Time Spent with Patient: greater than 35 minutes Time Spent with Patient: Greater than 35 minutes spent on this patients care, greater than 50% of time spent counseling, educating, and coordinating care regarding the above mentioned plan. ICD10 Worksheet Patient Problems: Problems Problem Status Onset Abdominal pain Acute Nausea Acute Rectal bleeding Acute
[2018-09-20] MEDS ORDERED: HYDROmorphONE/DILAUDID 2 MG TAB PO ONE (19:45)
--- NOTE | 2018-09-20 21:31 | HOSPPROG ---
Hospitalist Progress Note Assessment/Plan: Cross cover note: Called by nursing that patients urine culture returned with > 100K e coli, reviewed UA that is also concerning for infection. Starting Ceftriaxone tonight pending final culture data. Objective: Vital Signs Temp Pulse Resp BP Pulse Ox 36.8 C 83 18 105/63 90 L 09/20/18 16:00 09/20/18 16:00 09/20/18 16:00 09/20/18 16:00 09/20/18 16:00 Laboratory Results 09/20/18 06:00 09/18/18 04:50 09/19/18 09/20/18 09/21/18 05:59 05:59 05:59 Intake Total 600 Output Total 505 1250 1500 Balance 95 -1250 -1500 PT 17.3 SEC (12.0-15.0) H 09/19/18 04:40 INR 1.40 (0.83-1.16) H 09/19/18 04:40 ICD10 Worksheet Patient Problems: Problems Problem Status Onset Abdominal pain Acute Rectal bleeding Acute Nausea Acute
[2018-09-21] MEDS: PROMETHAZINE HCL 25 MG/ML INJ IVP SCH ×4 (00:02→21:36)
[2018-09-21] MEDS: ONDANSETRON 4 MG/2 ML VIAL IVP SCH ×5 (05:24→21:36)
[2018-09-21] MEDS: HEPARIN/DEXTROSE 500 ML IV SCH ×2 (05:25→19:11)
[2018-09-21] MEDS ORDERED: POTASSIUM CL 20 MEQ TAB PO ONE (08:45)
[2018-09-21] MEDS: PHENAZOPYRIDINE HCL 200 MG TAB PO SCH ×3 (08:50→18:27)
[2018-09-21] MEDS: CHOLECALCIFEROL VIT D3 1,000 UNITS TAB PO SCH (08:51)
[2018-09-21] MEDS: DIAZEPAM 5 MG TAB PO PRN (08:51)
[2018-09-21] MEDS: PANTOPRAZOLE SODIUM 40 MG TAB PO SCH ×2 (08:51→21:36)
[2018-09-21] MEDS: POTASSIUM CL 20 MEQ TAB PO ONE ×2 (08:51→08:58)
[2018-09-21] MEDS: MULTIVITAMINS 1 EACH TAB PO SCH (08:51)
[2018-09-21] MEDS: FAMOTIDINE 20 MG TAB PO SCH ×2 (08:54→21:36)
[2018-09-21] MEDS: MBX SOLN 30 ML BOTTLE PO SCH ×2 (08:55→21:57)
[2018-09-21] MEDS: HYDROmorphONE/DILAUDID 4 MG TAB PO PRN ×2 (09:06→17:40)
--- NOTE | 2018-09-21 10:01 | WOCRNPDOC ---
WOCRN Advanced Assessment Note - Skin Integrity Problem, Advanced Assess Right Anterior Lower Leg Pressure Injury Dressing Type: Open to Air Site Measurement - Head-to-Toe Length X Width X Depth (cm): 7x5x0 Pressure Injury Stage: Deep Tissue Injury (DTI), [employer] Trainer Related Pressure Injury (SCD) Pressure Injury Present on Admit: No Skin Integrity Problem Comment: Per patient the dark purple area with no open areas was caused by the tubing of the SCD's under the strap of his podus boots two days ago. The tissue is dark purple with a greenish hue. The greenish hue is more indicative of a contusion. However the etiology points to a pressure injury. The wound will be documented as a pressure injury and followed. It will declare itsself over the course of the week and documentation will be updated accordingly. ADAMA davidson.
[2018-09-21] MEDS: HYDROmorphONE/DILAUDID 1 MG/ML INJ IVP PRN ×2 (12:53→21:41)
[2018-09-21] MEDS: [UNRECOGNIZED DRUG - OTHER] PR SCH ×2 (13:27→21:39)
--- NOTE | 2018-09-21 15:18 | HOSPPROG ---
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 * complicated history of chronic inflammatory bowel disease (UC) with multiple prior surgeries and reversal surgeries, ostomy in place * recent DVT about 8 weeks ago * pyuria/E coli on culture in the setting of a chronic suprapubic urinary catheter; this most likely does not represent infection, however he has so much pain in his abdominal pelvic area due to his bowel disease that is quite difficult to discern whether he is having true urinary symptoms or not. 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 Haldol for nausea * As he is not yet tried Haldol for nausea will have him try dose of that now which he is agreeing to * Continue usual dose fentanyl patch, no change in other analgesics at this moment * Continue Trial of short chain fatty acid enemas ongoing * If patient does not improve may need to push harder for him to consider transfer to his surgeon at [facility]; it will be either that or he will be discharged without any other therapy as there is really nothing else to offer ; we reviewed again today and at this point agreed that on 09/23 which be 7 days of short chain fatty acids we will reassess his progress -at that point he will either be improving enough that we will send him home to nursing care with ongoing short chain fatty acids or he will need to consider going to visit his surgeon at [facility] * Dr Katie Navarro [phone] is his prev CR surgeon at [facility] * Continue IV heparin due to difficulty with dosing of Lovenox with his shifting weight for now Seen by me today on hospitalist rounds as well as multidisciplinary rounds SUBJECTIVE: He still has a fair bit of pain after his enemas, but in between he is overall doing slightly better with a bit less pain and eating a little bit better. He is however having still quite a bit of nausea despite q.6 hours standing orders Phenergan. Zofran is ordered to be given as well but he has been using that only about once per day. He has not yet tried any of the Haldol. No fever symptoms. Again today he does not mention to me any bladder discomfort. No fever symptoms OBJECTIVE Vitals reviewed: Stable vitals overall without fever Exam: alert oriented skin warm dry color ok resps not labored lungs clear BSs heart regular abd colostomy in place looks good. Bowel sounds present. Nondistended little tenderness limbs warm, no edema Suprapubic catheter draining clear yellow urine iv site ok Lab data: There is some pyuria of uncertain significance Microbiology: Urine culture with a sensitive E coli, ? Colonization versus infection Objective: Vital Signs Temp Pulse Resp BP Pulse Ox 36.9 C 77 18 124/81 H 94 09/21/18 07:53 09/21/18 07:53 09/21/18 07:53 09/21/18 07:53 09/21/18 07:53 Microbiology 09/19/18 13:05 Urine Culture - Final Urine,Catheterized Escherichia Coli Laboratory Results 09/20/18 06:00 09/21/18 02:30 09/20/18 09/21/18 09/22/18 06:59 06:59 06:59 Intake Total 1735 Output Total 750 2300 550 Balance -750 -565 -550 PT 17.3 SEC (12.0-15.0) H 09/19/18 04:40 INR 1.40 (0.83-1.16) H 09/19/18 04:40 - Time Spent With Patient Time Spent with Patient: greater than 35 minutes Time Spent with Patient: Greater than 35 minutes spent on this patients care, greater than 50% of time spent counseling, educating, and coordinating care regarding the above mentioned plan. ICD10 Worksheet Patient Problems: Problems Problem Status Onset Abdominal pain Acute Nausea Acute Rectal bleeding Acute
[2018-09-21] MEDS: HALOPERIDOL LACT 5 MG/ML INJ IVP PRN (15:56)
[2018-09-22] MEDS: PROMETHAZINE HCL 25 MG/ML INJ IVP SCH ×4 (00:36→17:25)
[2018-09-22] MEDS: HYDROmorphONE/DILAUDID 4 MG TAB PO PRN ×3 (00:36→16:47)
[2018-09-22] MEDS: ONDANSETRON 4 MG/2 ML VIAL IVP SCH ×5 (01:21→17:31)
[2018-09-22] MEDS: HYDROmorphONE/DILAUDID 1 MG/ML INJ IVP PRN (09:04)
[2018-09-22] MEDS: PHENAZOPYRIDINE HCL 200 MG TAB PO SCH ×3 (09:17→21:23)
[2018-09-22] MEDS: PANTOPRAZOLE SODIUM 40 MG TAB PO SCH ×2 (09:18→21:24)
[2018-09-22] MEDS: CHOLECALCIFEROL VIT D3 1,000 UNITS TAB PO SCH (09:18)
[2018-09-22] MEDS: MBX SOLN 30 ML BOTTLE PO SCH ×3 (09:18→22:40)
[2018-09-22] MEDS: MULTIVITAMINS 1 EACH TAB PO SCH (09:18)
[2018-09-22] MEDS: FAMOTIDINE 20 MG TAB PO SCH ×2 (09:18→21:24)
[2018-09-22] MEDS: HEPARIN/DEXTROSE 500 ML IV SCH (09:20)
[2018-09-22] MEDS: [UNRECOGNIZED DRUG - OTHER] PR SCH ×2 (09:42→20:55)
[2018-09-22] MEDS: DIAZEPAM 5 MG TAB PO PRN (16:47)
--- NOTE | 2018-09-22 17:58 | HOSPPROG ---
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 (this is 1 of multiple admissions for the same issue) * complicated history of chronic inflammatory bowel disease (UC) with multiple prior surgeries currently with ileostomy and blind rectal stump; he has had multiple GI evaluations and there has been no sign of inflammatory bowel disease proximal to his ostomy for some time * chronic pain syndrome with chronic prescribed narcotic dependency daily use * recent DVT about 8 weeks ago * pyuria/E coli on culture in the setting of a chronic suprapubic urinary catheter; doubt infection, however he has so much pain in that area it is quite difficult to discern if having true urinary symptoms or not. 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 Patient declined that and requested we try short chain fatty acid enemas which have helped him in the past. We agreed to a trial of 7-10 days at which time he would reassess his improvement and [facility] use the enemas, or see his surgeon at [facility]. See below. Today is day 6 of the short chain fatty acid enemas PLANS: * Continue Phenergan to q.6 hours, p.r.n. Zofran doses * Continue usual dose fentanyl patch, no change in other analgesics at this moment * Continue Trial of short chain fatty acid enemas ongoing * Will add twice daily Proctofoam at this time as his improvement is slow and meager so far * If patient does not improve may need to push harder for him to consider transfer to his surgeon at [facility]; it will be either that or he will be discharged without any other therapy as there is really nothing else to offer ; we reviewed again today and at this point agreed that on 1/30 which be 7 days of short chain fatty acids we will reassess his progress -at that point he will either be improving enough that we will send him home to nursing care with ongoing short chain fatty acids or he will need to consider going to visit his surgeon at [facility] * Dr Katie Navarro [phone] is his prev CR surgeon at [facility] * Continue IV heparin due to difficulty with dosing of Lovenox with his shifting weight for now * over the course of the patient's stay here he has made a few request for increase in dose of his narcotics which I do not think is appropriate and I have not increased his narcotics in fact have decreased them during my 5 days with him Seen by me today on hospitalist rounds as well as multidisciplinary rounds SUBJECTIVE: Again very mild improvement today from yesterday but still having pain particularly after the enemas, and having nausea. Food intake still limited OBJECTIVE Vitals reviewed: Stable vitals overall without fever Exam: alert oriented. He actually looks more comfortable to me today and more relaxed skin warm dry color ok resps not labored lungs clear BSs heart regular abd colostomy in place looks good. Bowel sounds present. Nondistended little tenderness limbs warm, no edema Suprapubic catheter draining clear yellow urine iv site ok Lab data: There is some pyuria of uncertain significance Microbiology: Urine culture with a sensitive E coli, ? Colonization versus infection Objective: Vital Signs Temp Pulse Resp BP Pulse Ox 36.8 C 76 16 132/91 H 90 L 09/22/18 16:45 09/22/18 16:45 09/22/18 16:45 09/22/18 16:45 09/22/18 16:45 Laboratory Results 09/20/18 06:00 09/21/18 02:30 09/21/18 09/22/18 09/23/18 06:59 06:59 06:59 Intake Total 1735 1408 Output Total 2300 1300 Balance -565 108 PT 17.3 SEC (12.0-15.0) H 09/19/18 04:40 INR 1.40 (0.83-1.16) H 09/19/18 04:40 ICD10 Worksheet Patient Problems: Problems Problem Status Onset Abdominal pain Acute Nausea Acute Rectal bleeding Acute
[2018-09-22] MEDS ORDERED: NS 1,000 ML IV ONE (18:26)
--- NOTE | 2018-09-22 18:32 | HOSPPROG ---
Hospitalist Progress Note Assessment/Plan: x-cover note notified of hypotension (SBP 64). Pt seen and examined. Seems to be mentating normally. Has taken midodrine in the past when his pressures are low a/ hypotension p/ ivf 1 L NS one time dose of midodrine 2.5mg Hold heparin while ivf are going d/t lack of access consider testing for adrenal insuff if hypotension persists Objective: Vital Signs Temp Pulse Resp BP Pulse Ox 36.8 C 76 16 132/91 H 90 L 09/22/18 16:45 09/22/18 16:45 09/22/18 16:45 09/22/18 16:45 09/22/18 16:45 Laboratory Results 09/20/18 06:00 09/21/18 02:30 09/21/18 09/22/18 09/23/18 05:59 05:59 05:59 Intake Total 1735 1000 408 Output Total 2300 1300 Balance -565 -300 408 PT 17.3 SEC (12.0-15.0) H 09/19/18 04:40 INR 1.40 (0.83-1.16) H 09/19/18 04:40 ICD10 Worksheet Patient Problems: Problems Problem Status Onset Abdominal pain Acute Rectal bleeding Acute Nausea Acute
[2018-09-22] MEDS: HYDROmorphONE/DILAUDID 2 MG/ML INJ IVP PRN (20:20)
[2018-09-22] MEDS: PROCTOFOAM HC 10 GM CAN PR SCH (21:07)
[2018-09-23] MEDS: PROMETHAZINE HCL 25 MG/ML INJ IVP SCH ×4 (00:28→18:34)
[2018-09-23] MEDS: ONDANSETRON 4 MG/2 ML VIAL IVP SCH ×6 (01:00→18:10)
[2018-09-23] MEDS: HYDROmorphONE/DILAUDID 4 MG TAB PO PRN (02:19)
[2018-09-23] MEDS: HEPARIN/DEXTROSE 500 ML IV SCH ×2 (05:49→18:41)
[2018-09-23] MEDS: PHENAZOPYRIDINE HCL 200 MG TAB PO SCH ×3 (09:53→18:33)
[2018-09-23] MEDS: PANTOPRAZOLE SODIUM 40 MG TAB PO SCH (09:54)
[2018-09-23] MEDS: FAMOTIDINE 20 MG TAB PO SCH ×2 (09:54→20:49)
[2018-09-23] MEDS: CHOLECALCIFEROL VIT D3 1,000 UNITS TAB PO SCH (09:54)
[2018-09-23] MEDS: MBX SOLN 30 ML BOTTLE PO SCH ×2 (09:54→20:52)
[2018-09-23] MEDS: MULTIVITAMINS 1 EACH TAB PO SCH (09:54)
[2018-09-23] MEDS: PROCTOFOAM HC 10 GM CAN PR SCH ×2 (09:55→20:49)
[2018-09-23] MEDS: HYDROmorphONE/DILAUDID 2 MG/ML INJ IVP PRN ×2 (10:41→20:41)
[2018-09-23] MEDS: [UNRECOGNIZED DRUG - OTHER] PR SCH ×2 (10:42→21:16)
[2018-09-23] MEDS: DIAZEPAM 5 MG TAB PO PRN (11:09)
[2018-09-23] MEDS ORDERED: HYDROmorphONE/DILAUDID 2 MG TAB PO PRN ×2 (15:43→17:26)
[2018-09-23] MEDS: fentaNYL 12 MCG PATCH TD SCH (15:53)
[2018-09-23] MEDS: HALOPERIDOL LACT 5 MG/ML INJ IVP PRN (16:00)
[2018-09-23] MEDS ORDERED: MIDODRINE HCL 5 MG TAB PO ONE (18:29)
[2018-09-23] MEDS ORDERED: HYDROmorphONE/DILAUDID 2 MG TAB PO ONE (18:30)
--- NOTE | 2018-09-23 19:08 | HOSPPROG ---
Hospitalist Progress Note Assessment/Plan: * UC with severe colitis in rectal stump -still with severe pain/mucus - not improving -patient now requests transfer to [facility] for surgical eval - will initiate in am * Ileostomy -no evidence of disease proximal to his ostomy * Continuous narcotic dependency -IV dilaudid BID with enema * Recent DVT -IV heparin pending surgery * C5 partial quad * Chronic suprapubic catheter -doubt UTI - DC antibiotic Dr Katie Navarro [phone] is his prev CR surgeon at [facility] Subjective: no better, finally want to go to [facility] Objective: Vital Signs Temp Pulse Resp BP Pulse Ox 36.3 C 80 16 126/87 H 90 L 09/23/18 15:35 09/23/18 15:35 09/23/18 15:35 09/23/18 15:35 09/23/18 15:35 Laboratory Results 09/23/18 06:50 09/21/18 02:30 09/22/18 09/23/18 09/24/18 05:59 05:59 05:59 Intake Total 1000 1058 892 Output Total 1300 1600 1000 Balance -300 -542 -108 PT 17.3 SEC (12.0-15.0) H 09/19/18 04:40 INR 1.40 (0.83-1.16) H 09/19/18 04:40 - Physical Exam Constitutional: no apparent distress, appears nourished, not in pain Cardiovascular: regular rate and rhythym, no murmur, rub, or gallop Respiratory: no respiratory distress, no rales or rhonchi, clear to auscultation Gastrointestinal: normoactive bowel sounds, soft, non-tender abdomen, no palpable masses Skin: no rashes or abrasions, no fluctuance, no induration Neurologic: AAOx3, sensation intact bilaterally Psychiatric: interacting appropriately, not anxious, not encephalopathic, thought process linear ICD10 Worksheet Patient Problems: Problems Problem Status Onset Abdominal pain Acute Rectal bleeding Acute Nausea Acute
[2018-09-24] MEDS: PROMETHAZINE HCL 25 MG/ML INJ IVP PRN ×3 (01:06→16:41)
[2018-09-24] MEDS: HYDROmorphONE/DILAUDID 2 MG TAB PO PRN ×4 (06:12→23:55)
[2018-09-24] MEDS ORDERED: PROTOCOL POTASSIUM 1 DOSE MISC PRN (08:25)
[2018-09-24] MEDS: HEPARIN/DEXTROSE 500 ML IV SCH (09:25)
[2018-09-24] MEDS: MULTIVITAMINS 1 EACH TAB PO SCH (09:27)
[2018-09-24] MEDS: FAMOTIDINE 20 MG TAB PO SCH ×2 (09:27→20:53)
[2018-09-24] MEDS: CHOLECALCIFEROL VIT D3 1,000 UNITS TAB PO SCH (09:27)
[2018-09-24] MEDS: [UNRECOGNIZED DRUG - OTHER] PR SCH ×2 (09:28→21:45)
[2018-09-24] MEDS: MBX SOLN 30 ML BOTTLE PO SCH ×2 (09:30→20:53)
[2018-09-24] MEDS: PROCTOFOAM HC 10 GM CAN PR SCH ×2 (09:31→21:35)
[2018-09-24] MEDS: HYDROmorphONE/DILAUDID 2 MG/ML INJ IVP PRN ×2 (09:41→20:56)
[2018-09-24] MEDS: ONDANSETRON 4 MG/2 ML VIAL IVP PRN ×2 (12:09→19:39)
[2018-09-24] MEDS: MAG HYDROX/AL HYDROX/SIMETH 30 ML UDCUP PO PRN (13:24)
--- NOTE | 2018-09-24 13:33 | WOCRNPDOC ---
MAKAYLA Advanced Assessment Note - Skin Integrity Problem, Advanced Assess Right Anterior Lower Leg Pressure Injury Dressing Type: Allevyn Life Skin Integrity Problem Comment: After reasessing this wound today it is clear that this is not a pressure injury. It has not changed since previous assessment on Friday. It likely is a scarred discolored area of tissue as if it was a contusion it would be resolving. Wound care will sign off and again, please note, this is not a pressure injury. ADAMA davidson.
--- NOTE | 2018-09-24 16:14 | HOSPPROG ---
Hospitalist Progress Note Assessment/Plan: * Diversion colitis of rectal stump -recent EGD/colonoscopy/CT abd - relatively unremarkable -path c/w diversion colitis -d/w colorectal surgery Dr. Katie Navarro at [facility] -he did not accept patient for transfer to [facility] -he does not think the patient will benefit from more surgery -he thinks patient's pain is multifactorial and not due to colitis -still with severe pain/mucus - not improving -d/w Dr. Fragoso - she still believes patient would benefit from surgery -needs transfer to hospital with colorectal surgery -Dr. Fragoso to look for alternative accepting facility * UC -continue HC enemas -per GI colitis not responding to UC tx, therefore more c/w diversion colitis * Ileostomy -no evidence of disease proximal to his ostomy * Continuous narcotic dependency -IV dilaudid BID with enema * Recent DVT -IV heparin pending surgery * C5 partial quad * Chronic suprapubic catheter -doubt UTI - DC antibiotic * Duodenal polyp -needs repeat EGD 2 months for removal -path benign Subjective: Still with lots of pain and mucus from rectum, no better, can't discharge like this. Doesn't want to go back to [facility], would like to re-find apartment with [facility], [facility] can not handle his care needs Objective: Vital Signs Temp Pulse Resp BP Pulse Ox 37.1 C 87 18 96/57 L 93 09/24/18 12:20 09/24/18 12:20 09/24/18 12:20 09/24/18 12:20 09/24/18 12:20 Laboratory Results 09/23/18 06:50 09/24/18 10:06 09/23/18 09/24/18 09/25/18 05:59 05:59 05:59 Intake Total 1058 1292 Output Total 1600 2400 Balance -542 -1108 PT 17.3 SEC (12.0-15.0) H 09/19/18 04:40 INR 1.40 (0.83-1.16) H 09/19/18 04:40 old chart reviewed extensively to asses previous w/u here for this problem - Time Spent With Patient Time Spent with Patient: greater than 35 minutes Time Spent with Patient: Greater than 35 minutes spent on this patients care, greater than 50% of time spent counseling, educating, and coordinating care regarding the above mentioned plan. - Physical Exam Constitutional: no apparent distress, appears nourished, not in pain Cardiovascular: regular rate and rhythym, no murmur, rub, or gallop Respiratory: no respiratory distress, no rales or rhonchi, clear to auscultation Gastrointestinal: normoactive bowel sounds, soft, non-tender abdomen, no palpable masses Skin: no rashes or abrasions, no fluctuance, no induration Musculoskeletal: No full muscle strength Neurologic: AAOx3, sensation intact bilaterally Psychiatric: interacting appropriately, not anxious, not encephalopathic, thought process linear ICD10 Worksheet Patient Problems: Problems Problem Status Onset Abdominal pain Acute Rectal bleeding Acute Nausea Acute
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
[2018-09-24] MEDS ORDERED: POTASSIUM CL 10 MEQ TAB PO ONE (19:58)
[2018-09-24] MEDS ORDERED: NS BOLUS 500 ML IV PRN (21:30)
[2018-09-25 03:21] LABS: PLATELET COUNT 301 10^3/uL (150-400)
[2018-09-25] MEDS: PROMETHAZINE HCL 25 MG/ML INJ IVP PRN ×3 (03:25→20:50)
[2018-09-25] MEDS ORDERED: POTASSIUM CL 10 MEQ TAB PO ONE ×2 (07:25→20:59)
[2018-09-25] MEDS: HYDROmorphONE/DILAUDID 2 MG/ML INJ IVP PRN ×2 (09:18→20:51)
[2018-09-25] MEDS: MULTIVITAMINS 1 EACH TAB PO SCH (09:20)
[2018-09-25] MEDS: CHOLECALCIFEROL VIT D3 1,000 UNITS TAB PO SCH (09:21)
[2018-09-25] MEDS: FAMOTIDINE 20 MG TAB PO SCH ×2 (09:24→20:50)
[2018-09-25] MEDS: [UNRECOGNIZED DRUG - OTHER] PR SCH ×2 (09:28→20:51)
[2018-09-25] MEDS: MBX SOLN 30 ML BOTTLE PO SCH ×2 (09:32→20:56)
[2018-09-25] MEDS: PROCTOFOAM HC 10 GM CAN PR SCH ×2 (11:04→20:57)
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
[2018-09-25] MEDS: HEPARIN/DEXTROSE 500 ML IV SCH (13:16)
[2018-09-25] MEDS: HYDROmorphONE/DILAUDID 2 MG TAB PO PRN ×2 (13:52→23:58)
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
[2018-09-25] MEDS: ONDANSETRON 4 MG/2 ML VIAL IVP PRN (18:33)
[2018-09-26 06:01] LABS: PLATELET COUNT 328 10^3/uL (150-400)
[2018-09-26] MEDS: CHOLECALCIFEROL VIT D3 1,000 UNITS TAB PO SCH (09:40)
[2018-09-26] MEDS: MULTIVITAMINS 1 EACH TAB PO SCH (09:41)
[2018-09-26] MEDS: FAMOTIDINE 20 MG TAB PO SCH (09:41)
[2018-09-26] MEDS: PROCTOFOAM HC 10 GM CAN PR SCH (09:41)
[2018-09-26] MEDS: MBX SOLN 30 ML BOTTLE PO SCH (09:42)
[2018-09-26] MEDS: HYDROmorphONE/DILAUDID 2 MG/ML INJ IVP PRN ×3 (10:15→20:44)
[2018-09-26] MEDS: [UNRECOGNIZED DRUG - OTHER] PR SCH (10:16)
[2018-09-26] MEDS: PROMETHAZINE HCL 25 MG/ML INJ IVP PRN ×2 (10:16→20:44)
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
[2018-09-26] MEDS ORDERED: MIDAZOLAM 2 MG/2 ML VIAL ONE ×3 (12:02→12:19)
[2018-09-26] MEDS ORDERED: fentaNYL 100 MCG/2 ML INJ ONE (12:02)
--- NOTE | 2018-09-26 12:17 | PDPROPOC ---
Sedation Plan of Care Sedation Plan of Care: vital signs stable, mental status noted, patient educated of risks, benefits, alternatives, patient can tolerate sedation ASA Classification: ASA 3 Planned drugs: fentanyl, midazolam Mallampati Score: Class 2 Mallampati Reference Image: Patient passed 3-3-2 rule?: Yes
[2018-09-26] MEDS ORDERED: fentaNYL 100 MCG/2 ML INJ IVP ONE (12:32)
[2018-09-26] MEDS ORDERED: MIDAZOLAM 2 MG/2 ML VIAL IVP ONE (12:32)
--- NOTE | 2018-09-26 12:35 | GIREPORT ---
[facility] Surgical Services - Endoscopy Department Patient Name: Franck Claros Procedure Date: 09/26/2018 11:59 AM Patient Type: Inpatient Attending MD/ ER Physician: Janusz Kelly MD Procedure: Flexible Sigmoidoscopy Indications: Diversion Colitis Providers: Janusz Kelly MD Medicines: Fentanyl 100 micrograms IV, Midazolam 8 mg IV, Complications: No immediate complications. Estimated blood loss: Minimal. Description of Procedure: After obtaining informed consent, the endoscope was passed under direct vision. Throughout the procedure, the patient's blood pressure, pulse, and oxygen saturations were monitored continuously. The Endoscope was intro duced through the anus and advanced to the sigmoid colon. The flexible sigmoidoscopy was accomplished without difficulty. The patient tolerate d the procedure well. The quality of the bowel preparation was good. Moderate Sedation: Moderate (conscious) sedation was administered by the endoscopy nurse theodora flores supervised by the endoscopist. The following parameters were monitored: oxygen saturation, heart rate, blood pressure, and response to care. To ruth ann physician intraservice time was 18 minutes. Findings: The digital rectal exam was normal. A diffuse area of moderately congested, erythematous, eroded and inflam ed mucosa was found in the rectum and in the sigmoid colon. Biopsies were taken with a cold forceps for histology. Estimated blood loss was minimal. There was evidence of a prior end sigmoid colostomy in the sigmoid colo n. Estimated Blood Loss: Estimated blood loss was minimal. Post Op Diagnosis: - Congested, erythematous, eroded and inflamed mucosa in the rectum and in the sigmoid colon. Biopsied. - End sigmoid colostomy. Recommendation: - Await pathology results. - My office will call with the pathology result with 5-7 days. If you h ave not heard from my office by 12-14, do not assume the pathology is tawanna l, please call [phone] to get the pathology reults. - Continue present medications. SCFA enema's - Consider re-anastomosis as per surgery or consider permanant ostomy w ith removal of distal sigmoid and rectum/APR. - [facility]. - Thank you for allowing me to help in your patient's care. Do not hesi rm to call with any questions. Attending Participation: I personally performed the entire procedure. Robin Tabares M.D Janusz Kelly MD 09/26/2018 12:35:01 PM This report has been signed electronicallyMatthew MD Robin Number of Addenda: 0 Note Initiated On: 09/26/2018 11:59 AM Total Procedure Duration Time 0 hours 5 minutes 45 seconds [email or web address]
--- NOTE | 2018-09-26 13:42 | ASMTCMCOM ---
CM Note CM Note Notes: CM spoke to PT and they are not recommending SNF/Rehab. Due to that he will not be able to go to [facility], [facility] or [facility]. This has not been communicated to pt yet, as he was unavailable when CM went to his room. D/C Plan: Brian Alberto Date Signed: 09/26/2018 01:42 PM Electronically Signed By:Mara Mccoy
[2018-09-26] MEDS: HYDROmorphONE/DILAUDID 2 MG TAB PO PRN (13:52)
[2018-09-26] MEDS: ONDANSETRON 4 MG/2 ML VIAL IVP PRN (13:53)
[2018-09-26] MEDS: MAG HYDROX/AL HYDROX/SIMETH 30 ML UDCUP PO PRN (15:58)
[2018-09-26] MEDS: fentaNYL 12 MCG PATCH TD SCH (15:59)
[2018-09-26] MEDS ORDERED: POTASSIUM CL 10 MEQ TAB PO ONE (21:16)
[2018-09-27] MEDS: HYDROmorphONE/DILAUDID 2 MG/ML INJ IVP PRN ×3 (00:27→20:31)
[2018-09-27] MEDS: ONDANSETRON 4 MG/2 ML VIAL IVP PRN (00:28)
[2018-09-27] MEDS: MBX SOLN 30 ML BOTTLE PO SCH ×3 (00:33→21:41)
[2018-09-27] MEDS: [UNRECOGNIZED DRUG - OTHER] PR SCH ×3 (00:57→21:42)
[2018-09-27] MEDS: FAMOTIDINE 20 MG TAB PO SCH ×3 (00:57→21:42)
[2018-09-27 04:51] LABS: PLATELET COUNT 279 10^3/uL (150-400)
[2018-09-27] MEDS: PROMETHAZINE HCL 25 MG/ML INJ IVP PRN ×2 (09:42→20:18)
[2018-09-27] MEDS ORDERED: MAGNESIUM HYDROXIDE 30 ML UDCUP PO PRN (10:21)
[2018-09-27] MEDS ORDERED: POLYETHYLENE GLYCOL 3350 17 GM PKT PO PRN (10:21)
[2018-09-27] MEDS ORDERED: LACTULOSE 20 GM/30 ML UDCUP PO PRN (10:21)
[2018-09-27] MEDS ORDERED: BISACODYL 10 MG SUPP PR PRN (10:21)
[2018-09-27] MEDS: CHOLECALCIFEROL VIT D3 1,000 UNITS TAB PO SCH (10:40)
[2018-09-27] MEDS: MULTIVITAMINS 1 EACH TAB PO SCH (10:40)
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
[2018-09-27] MEDS: HYDROmorphONE/DILAUDID 2 MG TAB PO PRN (14:22)
[2018-09-27] MEDS: HEPARIN/DEXTROSE 500 ML IV SCH (14:26)
--- NOTE | 2018-09-27 14:58 | ASMTCMCOM ---
CM Note CM Note Notes: Pt discussed in rounds today with MD and RN. Pt is being seen by Dr. Allison in the coming days to evaluate pt for surgery. PT reports pt not eligible for rehab. CM to follow to determine discharge needs after surgery. [facility] Date Signed: 09/27/2018 02:58 PM Electronically Signed By:JUNAID Robertson
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
[2018-09-27] MEDS: MAG HYDROX/AL HYDROX/SIMETH 30 ML UDCUP PO PRN (18:03)
[2018-09-27] MEDS: SENNOSIDES/DOCUSATE SODIUM TAB PO SCH (21:43)
[2018-09-27] MEDS: NS 1,000 ML IV SCH (23:35)
[2018-09-27] MEDS ORDERED: POTASSIUM CL 10 MEQ TAB PO ONE (23:44)
[2018-09-28] MEDS: HYDROmorphONE/DILAUDID 2 MG/ML INJ IVP PRN ×3 (00:29→21:46)
[2018-09-28] MEDS: HEPARIN/DEXTROSE 500 ML IV SCH ×2 (05:24→20:47)
[2018-09-28] MEDS: SENNOSIDES/DOCUSATE SODIUM TAB PO SCH ×2 (09:55→22:20)
[2018-09-28] MEDS: CHOLECALCIFEROL VIT D3 1,000 UNITS TAB PO SCH (09:55)
[2018-09-28] MEDS: FAMOTIDINE 20 MG TAB PO SCH ×2 (09:56→22:19)
[2018-09-28] MEDS: PROMETHAZINE HCL 25 MG/ML INJ IVP PRN ×2 (09:56→21:46)
[2018-09-28] MEDS: [UNRECOGNIZED DRUG - OTHER] PR SCH ×2 (09:57→22:19)
[2018-09-28] MEDS: MULTIVITAMINS 1 EACH TAB PO SCH (09:57)
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
[2018-09-28] MEDS: MBX SOLN 30 ML BOTTLE PO SCH ×2 (10:31→20:46)
[2018-09-28] MEDS: HYDROmorphONE/DILAUDID 2 MG TAB PO PRN ×3 (12:05→22:20)
[2018-09-28] MEDS: ONDANSETRON 4 MG/2 ML VIAL IVP PRN (12:06)
[2018-09-28] MEDS: NS 1,000 ML IV SCH (12:59)
[2018-09-28] MEDS: MAG HYDROX/AL HYDROX/SIMETH 30 ML UDCUP PO PRN (13:04)
[2018-09-28] MEDS ORDERED: LORazepam 1 MG TAB PO ONE (13:15)
[2018-09-28] MEDS ORDERED: POTASSIUM CL 10 MEQ TAB PO ONE ×2 (14:02→21:32)
--- NOTE | 2018-09-28 15:25 | SOAPPROG ---
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 C5 paraplagia. Ulcerative colitis (?) - Colonoscopy over weekend showed inflammed congested ulcerated rectal stump/ sigmoid colon. - Discussed surgical options including reanastomosis (which can create problems with bowel protocol and C5 issues) vs. resection of rectal stump - Continue trial of short chain fatty acid (SCFA) enemas (previously took 2-3 weeks to have effect) - Diet as tolerated - Appreciate hospitalist management. Discussed with Dr. Box Subjective: continues to have abdominal pain and feeling of "mucus plug" per rectum Objective: General: laying in bed, comfortable, NAD Lungs: No increased work of breathing Cardiac: no peripheral edema Abdomen: soft, nondistended, nontender. Ostomy stool in appliance Skin: Warm and dry. Neuro: paraplegic - use of LUE Objective: Vital Signs Temp Pulse Resp BP Pulse Ox 36.6 C 66 16 117/78 95 09/28/18 08:38 09/28/18 08:38 09/28/18 08:38 09/28/18 08:38 09/28/18 08:38 Laboratory Results 09/27/18 04:35 09/28/18 05:15 09/27/18 09/28/18 09/29/18 05:59 05:59 05:59 Intake Total 1200 1372 Output Total 1999 3886 Balance -800 -1203 PT 17.3 SEC (12.0-15.0) H 09/19/18 04:40 INR 1.40 (0.83-1.16) H 09/19/18 04:40 ICD10 Worksheet Patient Problems: Problems Problem Status Onset Abdominal pain Acute Nausea Acute Rectal bleeding Acute
[2018-09-28] MEDS: DIAZEPAM 5 MG TAB PO PRN (22:22)
--- NOTE | 2018-09-29 09:00 | SOAPPROG ---
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 C5 paraplagia. Ulcerative colitis (?) - Colonoscopy over weekend showed inflamed congested ulcerated rectal stump/ sigmoid colon. - Surgical recommendation resection of rectal stump. Second choice APR but not ideal because of wound healing issues. Reanastomosis not a great option d/t C5 and bowel protocol. - Second opinion Dr. Ritchie in [place] if pt desires - Continue trial of short chain fatty acid (SCFA) enemas (previously took 2-3 weeks to have effect) - Diet as tolerated - Appreciate hospitalist management. - Patient wants to think about his surgical options and review his old records before making a decision. If he wants to continue SCFA enemas, should DC back to [facility] and f/u as outpatient and second opinion in [place]. - Seen with Dr. Fragoso Subjective: continues to have abdominal pain - unchanged today. Objective: General: laying in bed, comfortable, NAD Lungs: No increased work of breathing Cardiac: no peripheral edema Abdomen: soft, nondistended, nontender. Ostomy stool in appliance Skin: Warm and dry. Neuro: paraplegic - use of LUE 09/29/18 09:23 Objective: Vital Signs Temp Pulse Resp BP Pulse Ox 37.2 C 80 18 123/82 H 95 09/29/18 07:57 09/29/18 07:57 09/29/18 07:57 09/29/18 07:57 09/29/18 07:57 Laboratory Results 09/27/18 04:35 09/29/18 03:55 09/28/18 09/29/18 09/30/18 05:59 05:59 05:59 Intake Total 1372 3178 Output Total 2575 1500 1999 Balance -1203 1678 -2000 PT 17.3 SEC (12.0-15.0) H 09/19/18 04:40 INR 1.40 (0.83-1.16) H 09/19/18 04:40 ICD10 Worksheet Patient Problems: Problems Problem Status Onset Abdominal pain Acute Nausea Acute Rectal bleeding Acute
[2018-09-29] MEDS: SENNOSIDES/DOCUSATE SODIUM TAB PO SCH ×2 (09:34→21:46)
[2018-09-29] MEDS: PROMETHAZINE HCL 25 MG/ML INJ IVP PRN ×3 (09:34→21:46)
[2018-09-29] MEDS: CHOLECALCIFEROL VIT D3 1,000 UNITS TAB PO SCH (09:34)
[2018-09-29] MEDS: MULTIVITAMINS 1 EACH TAB PO SCH (09:34)
[2018-09-29] MEDS: FAMOTIDINE 20 MG TAB PO SCH ×2 (09:34→21:45)
[2018-09-29] MEDS: HYDROmorphONE/DILAUDID 2 MG/ML INJ IVP PRN (09:35)
[2018-09-29] MEDS: MBX SOLN 30 ML BOTTLE PO SCH ×2 (09:36→21:45)
[2018-09-29] MEDS: HYDROmorphONE/DILAUDID 2 MG TAB PO PRN (11:03)
[2018-09-29] MEDS: [UNRECOGNIZED DRUG - OTHER] PR SCH ×2 (11:04→21:22)
[2018-09-29] MEDS: ONDANSETRON 4 MG/2 ML VIAL IVP PRN (13:15)
--- NOTE | 2018-09-29 15:11 | ASMTCMCOM ---
CM Note CM Note Notes: Patient plan of care reviewed in rounds.He is declining surgical intervention at this time. Per Zander from [facility], they are able to administer SCFAE and have done so in the past. Likely able to return to [facility]. CM to follow. Plan: Return to [facility]. Date Signed: 09/29/2018 03:09 PM Electronically Signed By:Elizabeth Cui RN
[2018-09-29] MEDS: fentaNYL 12 MCG PATCH TD SCH (15:40)
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
--- NOTE | 2018-09-29 19:16 | SOAPPROG ---
DAV Progress Note Assessment/Plan: Assessment:Plan: 1) diversion colitis - bx pending, I would think a permanent ostomy with APR might be best option for this pt. Dr Fragoso will be back Friday. I will sing off for now and return when bx/path available to review with pt 09/27/18 12:26 09/29/18 19:13 as above bx c/w diversion colitis pt is thinking of removing the rectal stump, no APR given poor wound healing as per surgery note I will sign off recall if needed Subjective: cc- diversion colitis pt feeling about the same no f/c/s, no n/v Objective: Vital Signs Temp Pulse Resp BP Pulse Ox 36.2 C 80 18 96/63 L 95 09/29/18 15:37 09/29/18 15:37 09/29/18 15:37 09/29/18 15:37 09/29/18 15:37 Laboratory Results 09/29/18 13:15 09/29/18 03:55 09/28/18 09/29/18 09/30/18 05:59 05:59 05:59 Intake Total 1372 3178 640 Output Total 2575 1500 3800 Balance -1203 1678 -3160 PT 17.3 SEC (12.0-15.0) H 09/19/18 04:40 INR 1.40 (0.83-1.16) H 09/19/18 04:40 A+Ox3 CTA anteriorly S1S2 +BS, soft nt ICD10 Worksheet Patient Problems: Problems Problem Status Onset Abdominal pain Acute Nausea Acute Rectal bleeding Acute
[2018-09-29] MEDS: ENOXAPARIN 120 MG/0.8 ML SYR SC SCH (21:45)
[2018-09-29] MEDS: HYDROmorphONE/DILAUDID 4 MG TAB PO PRN (23:32)
[2018-09-29] MEDS: DIAZEPAM 5 MG TAB PO PRN (23:32)
[2018-09-30] MEDS: ENOXAPARIN 120 MG/0.8 ML SYR SC SCH ×2 (09:27→21:21)
[2018-09-30] MEDS: MULTIVITAMINS 1 EACH TAB PO SCH (09:27)
[2018-09-30] MEDS: CHOLECALCIFEROL VIT D3 1,000 UNITS TAB PO SCH (09:27)
[2018-09-30] MEDS: FAMOTIDINE 20 MG TAB PO SCH ×2 (09:30→21:22)
[2018-09-30] MEDS: MBX SOLN 30 ML BOTTLE PO SCH ×2 (12:09→21:22)
[2018-09-30] MEDS: HYDROmorphONE/DILAUDID 4 MG TAB PO PRN (12:09)
[2018-09-30] MEDS: PROMETHAZINE HCL 25 MG/ML INJ IVP PRN ×2 (12:10→23:08)
[2018-09-30] MEDS: SENNOSIDES/DOCUSATE SODIUM TAB PO SCH ×2 (12:10→21:22)
--- NOTE | 2018-09-30 13:46 | SOAPPROG ---
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 C5 paraplagia. Ulcerative colitis (?) - Colonoscopy over weekend showed inflamed congested ulcerated rectal stump/ sigmoid colon c/w diversion colitis. - Surgical recommendation resection of rectal stump. Second choice APR but not ideal because of wound healing issues. Reanastomosis not a great option d/t C5 and bowel protocol. - Second opinion by Dr. Gambino per pt request - Continue trial of short chain fatty acid (SCFA) enemas (previously took 2-3 weeks to have effect) - Diet as tolerated - Appreciate hospitalist management - difficulty transitioning to PO pain meds. - Patient still considering his surgical options before making a decision. If he wants to continue SCFA enemas, should DC back to [facility] and f/u as outpatient. - Seen with Dr. Fragoso Subjective: had difficulty with pain management expectations yesterday. Still having pain, poorly controlled Objective: General: laying in bed, comfortable, NAD Lungs: No increased work of breathing Cardiac: no peripheral edema Abdomen: deferred Skin: Warm and dry. Neuro: paraplegic - use of LUE 09/29/18 09:23 09/30/18 13:44 Objective: Vital Signs Temp Pulse Resp BP Pulse Ox 36.6 C 81 16 106/73 93 09/30/18 08:30 09/30/18 08:30 09/30/18 08:30 09/30/18 08:30 09/30/18 08:30 Laboratory Results 09/29/18 13:15 09/29/18 03:55 09/29/18 09/30/18 10/01/18 05:59 05:59 05:59 Intake Total 3178 1140 Output Total 1500 5950 1500 Balance 1678 -7910 -1500 PT 17.3 SEC (12.0-15.0) H 09/19/18 04:40 INR 1.40 (0.83-1.16) H 09/19/18 04:40 ICD10 Worksheet Patient Problems: Problems Problem Status Onset Abdominal pain Acute Nausea Acute Rectal bleeding Acute
[2018-09-30] MEDS: ONDANSETRON 4 MG/2 ML VIAL IVP PRN (15:12)
[2018-09-30] MEDS: NS 1,000 ML IV SCH (15:15)
--- NOTE | 2018-09-30 15:42 | ASMTCMCOM ---
CM Note CM Note Notes: Patient seen per his request this am and he is unhappy with physician care and his current SNF. He wishes to seek other care arrangements. Planning to proceed with bowel revision ? Timing unclear at this point. Referral in [facility]scripts to [facility] per his request and his ficastro is actively seeking housing that can accommodate his handicap needs at this time. Per patient he was at [facility] for respite care. Alejandra is currently out of town. CM to follow. Plan: TBD Date Signed: 09/30/2018 03:41 PM Electronically Signed By:Elizabeth Cui RN
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
[2018-09-30] MEDS: [UNRECOGNIZED DRUG - OTHER] PR SCH ×2 (17:55→23:43)
--- NOTE | 2018-09-30 18:12 | SOAPPROG ---
DAV Progress Note Assessment/Plan: Assessment: ASKED TO SEE FOR CONSULTATION 43-YEAR-OLD MALE QUADRIPLEGIC WHO IS HAVING REFLEX SYMPATHETIC PAIN FROM HIS BLIND COLON SEGMENT. RECENT FLEXURE SLEEPING SHOWS ULCERATED ERYTHEMATOUS SIGMOID COLON AND RECTUM CONSISTENT WITH STASIS COLITIS SECONDARY TO HIS DIVERSION RISKS AND OPTIONS FULLY DISCUSSED. PATIENT HAS A END-COLOSTOMY I HAVE RECOMMENDED IN LIGHT OF HIS SYMPTOMS A CONSIDER A SIGMOID RESECTION LEAVING ONLY A SMALL RECTAL STUMP BUT PRESERVING THE ANUS AND SPHINCTER. HE MAY HAVE CONSIDERABLE DIFFICULTIES HEALING A PERINEAL WOUND HE HAS HAD SACRAL DECUBITUS I IN THE PAST Plan: PROBABLE LAPAROSCOPIC SIGMOID COLECTOMY WITH ANAL AND SPHINCTER RETENTION 09/30/18 17:25 Objective: Vital Signs Temp Pulse Resp BP Pulse Ox 36.8 C 75 16 103/71 92 09/30/18 16:29 09/30/18 16:29 09/30/18 16:29 09/30/18 16:29 09/30/18 16:29 Laboratory Results 09/29/18 13:15 09/29/18 03:55 09/29/18 09/30/18 10/01/18 05:59 05:59 05:59 Intake Total 3178 1140 Output Total 1500 5950 1500 Balance 1678 -4810 -1500 PT 17.3 SEC (12.0-15.0) H 09/19/18 04:40 INR 1.40 (0.83-1.16) H 09/19/18 04:40 ICD10 Worksheet Patient Problems: Problems Problem Status Onset Abdominal pain Acute Nausea Acute Rectal bleeding Acute
[2018-09-30] MEDS: HYDROmorphONE/DILAUDID 1 MG/ML INJ IVP PRN (23:08)
[2018-10-01] MEDS: SENNOSIDES/DOCUSATE SODIUM TAB PO SCH ×2 (09:49→22:05)
[2018-10-01] MEDS: MULTIVITAMINS 1 EACH TAB PO SCH (09:50)
[2018-10-01] MEDS: FAMOTIDINE 20 MG TAB PO SCH ×2 (09:50→22:06)
[2018-10-01] MEDS: ENOXAPARIN 120 MG/0.8 ML SYR SC SCH ×2 (09:50→22:06)
[2018-10-01] MEDS: CHOLECALCIFEROL VIT D3 1,000 UNITS TAB PO SCH (09:50)
[2018-10-01] MEDS: [UNRECOGNIZED DRUG - OTHER] PR SCH ×2 (10:30→23:00)
[2018-10-01] MEDS: PROMETHAZINE HCL 25 MG/ML INJ IVP PRN ×2 (10:50→21:10)
[2018-10-01] MEDS: HYDROmorphONE/DILAUDID 1 MG/ML INJ IVP PRN ×2 (10:50→21:11)
[2018-10-01] MEDS: DIAZEPAM 5 MG TAB PO PRN ×2 (11:45→18:04)
[2018-10-01] MEDS: MBX SOLN 30 ML BOTTLE PO SCH ×2 (13:55→22:06)
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
[2018-10-01] MEDS: HYDROmorphONE/DILAUDID 4 MG TAB PO PRN (15:32)
[2018-10-01] MEDS: ONDANSETRON 4 MG/2 ML VIAL IVP PRN (17:13)
--- NOTE | 2018-10-01 19:51 | SOAPPROG ---
SOAP Progress Note Assessment/Plan: Assessment: 43 yo with C5 paraplegia [place] diagnosis of ulcerative colitis but does not fit with clinical picture and has no findings of UC on proximal scope Had diverting ostomy due to sacral decub. 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 Discussed risks and benefits Will schedule for next week. Can discharge prior I have ordered an ultrasound due to history of DVTs in June. Want to make sure clots are stable or smaller. On therapuetic lovenox. Will hold am of surgery S: Uncomfortable due to mucous plug O: Lying in bed, ABdomen soft. Ostomy in LLQ. Suprapubic catheter Plan: 09/13/18 10:49 10/01/18 19:48 Objective: Vital Signs Temp Pulse Resp BP Pulse Ox 36.5 C 79 18 103/65 95 10/01/18 19:25 10/01/18 19:25 10/01/18 19:25 10/01/18 19:25 10/01/18 19:25 Laboratory Results 09/29/18 13:15 09/29/18 03:55 09/30/18 10/01/18 10/02/18 05:59 05:59 05:59 Intake Total 1140 3348 1200 Output Total 5950 4650 1400 Balance -4810 -1302 -200 PT 17.3 SEC (12.0-15.0) H 09/19/18 04:40 INR 1.40 (0.83-1.16) H 09/19/18 04:40 ICD10 Worksheet Patient Problems: Problems Problem Status Onset Abdominal pain Acute Nausea Acute Rectal bleeding Acute
[2018-10-01] MEDS: NS 1,000 ML IV SCH (22:15)
[2018-10-02] MEDS: HYDROmorphONE/DILAUDID 4 MG TAB PO PRN ×3 (02:40→17:51)
[2018-10-02] MEDS: PROMETHAZINE HCL 25 MG/ML INJ IVP PRN ×3 (02:51→22:10)
[2018-10-02] MEDS: NS 1,000 ML IV SCH ×2 (09:32→17:46)
[2018-10-02] MEDS: HYDROmorphONE/DILAUDID 1 MG/ML INJ IVP PRN ×2 (09:33→22:10)
[2018-10-02] MEDS: FAMOTIDINE 20 MG TAB PO SCH ×2 (09:34→21:31)
[2018-10-02] MEDS: CHOLECALCIFEROL VIT D3 1,000 UNITS TAB PO SCH (09:35)
[2018-10-02] MEDS: SENNOSIDES/DOCUSATE SODIUM TAB PO SCH ×2 (09:35→21:31)
[2018-10-02] MEDS: MULTIVITAMINS 1 EACH TAB PO SCH (09:35)
[2018-10-02] MEDS: ENOXAPARIN 120 MG/0.8 ML SYR SC SCH ×2 (09:36→21:32)
[2018-10-02] MEDS: [UNRECOGNIZED DRUG - OTHER] PR SCH ×2 (10:18→22:29)
[2018-10-02] MEDS: MBX SOLN 30 ML BOTTLE PO SCH ×2 (13:25→21:00)
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
--- NOTE | 2018-10-02 15:27 | SOAPPROG ---
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 C5 paraplagia. Ulcerative colitis (?) - Colonoscopy over weekend showed inflamed congested ulcerated rectal stump/ sigmoid colon c/w diversion colitis. - OR next Friday - resection of rectal stump. Consent in chart. - Appreciate hospitalist management - Acute on chronic RLE DVT - Dr. Fragoso discussed with Dr. Ware who recommended IVC filter and therapeutic lovenox. Will hold am of surgery. Subjective: no complaints at this time. Objective: General: laying in bed, comfortable, NAD Lungs: No increased work of breathing Cardiac: no peripheral edema Abdomen: deferred Skin: Warm and dry. Neuro: paraplegic - use of LUE Objective: Vital Signs Temp Pulse Resp BP Pulse Ox 36.9 C 79 16 91/54 L 96 10/02/18 08:54 10/02/18 08:54 10/02/18 08:54 10/02/18 08:54 10/02/18 08:54 Laboratory Results 09/29/18 13:15 09/29/18 03:55 10/01/18 10/02/18 10/03/18 05:59 05:59 05:59 Intake Total 3348 1700 Output Total 4650 2950 Balance -1302 -1250 PT 17.3 SEC (12.0-15.0) H 09/19/18 04:40 INR 1.40 (0.83-1.16) H 09/19/18 04:40 ICD10 Worksheet Patient Problems: Problems Problem Status Onset Abdominal pain Acute Nausea Acute Rectal bleeding Acute
[2018-10-02] MEDS: fentaNYL 12 MCG PATCH TD SCH (15:29)
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
[2018-10-03] MEDS: HYDROmorphONE/DILAUDID 4 MG TAB PO PRN ×2 (05:06→16:29)
--- NOTE | 2018-10-03 07:34 | SOAPPROG ---
DAV Progress Note Assessment/Plan: Assessment: 43 yo with C5 paraplegia [place] diagnosis of ulcerative colitis but does not fit with clinical picture and has no findings of UC on proximal scope Had diverting ostomy due to sacral decub. 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 Discussed risks and benefits. Scheduled for 10/09 IVC filter on Friday Hold Lovenox Friday am Will schedule for next week. Can discharge prior Surgery will not round on him this weekend. Please call dr. Rivera with questions Plan: 09/13/18 10:49 10/01/18 19:48 10/03/18 07:33 Objective: Vital Signs Temp Pulse Resp BP Pulse Ox 36.8 C 77 19 102/62 96 10/03/18 05:01 10/03/18 05:01 10/03/18 05:01 10/03/18 05:01 10/03/18 05:01 Laboratory Results 09/29/18 13:15 09/29/18 03:55 10/02/18 10/03/18 10/04/18 05:59 05:59 05:59 Intake Total 1700 550 Output Total 2950 3300 Balance -1250 -2750 PT 17.3 SEC (12.0-15.0) H 09/19/18 04:40 INR 1.40 (0.83-1.16) H 09/19/18 04:40 ICD10 Worksheet Patient Problems: Problems Problem Status Onset Abdominal pain Acute Nausea Acute Rectal bleeding Acute
[2018-10-03] MEDS: CHOLECALCIFEROL VIT D3 1,000 UNITS TAB PO SCH (10:50)
[2018-10-03] MEDS: MULTIVITAMINS 1 EACH TAB PO SCH (10:50)
[2018-10-03] MEDS: FAMOTIDINE 20 MG TAB PO SCH ×2 (10:51→22:09)
[2018-10-03] MEDS: ENOXAPARIN 120 MG/0.8 ML SYR SC SCH ×2 (10:51→22:26)
[2018-10-03] MEDS: SENNOSIDES/DOCUSATE SODIUM TAB PO SCH ×2 (10:51→22:09)
[2018-10-03] MEDS: PROMETHAZINE HCL 25 MG/ML INJ IVP PRN ×2 (10:52→22:04)
[2018-10-03] MEDS: [UNRECOGNIZED DRUG - OTHER] PR SCH ×2 (10:52→22:50)
[2018-10-03] MEDS: HYDROmorphONE/DILAUDID 1 MG/ML INJ IVP PRN ×2 (10:53→22:04)
[2018-10-03] MEDS: MBX SOLN 30 ML BOTTLE PO SCH ×2 (10:54→22:10)
[2018-10-03] MEDS: DIAZEPAM 5 MG TAB PO PRN (12:47)
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
[2018-10-03] MEDS: ONDANSETRON 4 MG/2 ML VIAL IVP PRN (16:29)
[2018-10-04] MEDS: HYDROmorphONE/DILAUDID 4 MG TAB PO PRN ×3 (04:53→22:14)
[2018-10-04] MEDS: PROMETHAZINE HCL 25 MG/ML INJ IVP PRN ×3 (05:00→18:36)
[2018-10-04] MEDS: ONDANSETRON 4 MG/2 ML VIAL IVP PRN ×3 (09:26→22:07)
[2018-10-04] MEDS: HYDROmorphONE/DILAUDID 1 MG/ML INJ IVP PRN ×2 (09:27→18:36)
[2018-10-04] MEDS: ENOXAPARIN 120 MG/0.8 ML SYR SC SCH ×2 (09:45→22:14)
[2018-10-04] MEDS: [UNRECOGNIZED DRUG - OTHER] PR SCH ×2 (09:48→19:00)
[2018-10-04] MEDS: FAMOTIDINE 20 MG TAB PO SCH ×2 (10:04→22:15)
[2018-10-04] MEDS: SENNOSIDES/DOCUSATE SODIUM TAB PO SCH ×2 (10:04→22:14)
[2018-10-04] MEDS: MULTIVITAMINS 1 EACH TAB PO SCH (10:05)
[2018-10-04] MEDS: CHOLECALCIFEROL VIT D3 1,000 UNITS TAB PO SCH (10:05)
[2018-10-04] MEDS: MBX SOLN 30 ML BOTTLE PO SCH ×2 (12:00→22:16)
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
[2018-10-04] MEDS: PHENAZOPYRIDINE HCL 200 MG TAB PO PRN (17:14)
[2018-10-04] MEDS: DIAZEPAM 5 MG TAB PO PRN (17:15)
[2018-10-05] MEDS: PROMETHAZINE HCL 25 MG/ML INJ IVP PRN ×4 (00:50→21:24)
[2018-10-05] MEDS: PHENAZOPYRIDINE HCL 200 MG TAB PO PRN ×3 (00:57→21:31)
[2018-10-05] MEDS: DIAZEPAM 5 MG TAB PO PRN (01:05)
[2018-10-05] MEDS: HYDROmorphONE/DILAUDID 4 MG TAB PO PRN ×4 (02:46→23:15)
[2018-10-05] MEDS ORDERED: MIDAZOLAM 2 MG/2 ML VIAL IVP PRN (07:23)
[2018-10-05] MEDS ORDERED: FLUMAZENIL 0.5 MG/5 ML MDV IVP PRN (07:23)
[2018-10-05] MEDS ORDERED: fentaNYL 100 MCG/2 ML INJ IVP PRN (07:23)
[2018-10-05] MEDS ORDERED: NALOXONE HCL 0.4 MG/ML INJ IVP PRN (07:23)
[2018-10-05 07:28] LABS: INR 1.23 (0.83-1.16); PROTIME(PATIENT) 15.7 SEC (12.0-15.0)
[2018-10-05] MEDS ORDERED: NS 1,000 ML IV SCH (07:30)
[2018-10-05] MEDS ORDERED: MIDAZOLAM 2 MG/2 ML VIAL ONE (08:51)
[2018-10-05] MEDS ORDERED: fentaNYL 100 MCG/2 ML INJ ONE (08:51)
[2018-10-05] MEDS ORDERED: IOPAMIDOL (ISOVUE-300) 100 ML BTL ONE ×2 (09:14→09:36)
[2018-10-05] MEDS: HYDROmorphONE/DILAUDID 1 MG/ML INJ IVP PRN ×2 (11:58→21:24)
[2018-10-05] MEDS: [UNRECOGNIZED DRUG - OTHER] PR SCH ×2 (12:03→21:37)
[2018-10-05] MEDS: FAMOTIDINE 20 MG TAB PO SCH ×2 (12:04→21:30)
[2018-10-05] MEDS: SENNOSIDES/DOCUSATE SODIUM TAB PO SCH ×2 (13:01→21:31)
[2018-10-05] MEDS: MULTIVITAMINS 1 EACH TAB PO SCH (13:01)
[2018-10-05] MEDS: CHOLECALCIFEROL VIT D3 1,000 UNITS TAB PO SCH (13:01)
[2018-10-05] MEDS: MBX SOLN 30 ML BOTTLE PO SCH ×2 (13:02→21:30)
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
[2018-10-05] MEDS ORDERED: HYDROmorphONE/DILAUDID 1 MG/ML INJ IVP PRN (13:23)
--- NOTE | 2018-10-05 14:20 | ASMTCMCOM ---
CM Note CM Note Notes: Patient plan of care reviewed in rounds. Spoke with Medicaid rep from [facility] [phone] and she informed me patient needed another ULTC 100 done for [facility]. Forms completed and faxed confirmed receipt Spoke to patient mother Alannah who has grave reservations regarding care at [facility]. They wish to proceed with seeking alternative placement. I will place referrals and I also stressed that inpatient beds can be difficult under medicaid. Referrals to be placed via allscripts. Patient aware that [facility] has no terminal manager beds available. Per patient his fiance is actively seeking housing. Plan: TBD Date Signed: 10/05/2018 02:19 PM Electronically Signed By:Elizabeth Cui RN
[2018-10-05] MEDS: fentaNYL 12 MCG PATCH TD SCH (14:23)
[2018-10-05] MEDS: ALTEPLASE 2 MG VIAL IVP PRN (14:42)
[2018-10-05 15:56] LABS: PLATELET COUNT 245 10^3/uL (150-400)
[2018-10-05] MEDS: ENOXAPARIN 120 MG/0.8 ML SYR SC SCH (21:29)
[2018-10-06] MEDS: HYDROmorphONE/DILAUDID 4 MG TAB PO PRN ×3 (06:28→23:32)
[2018-10-06] MEDS: PROMETHAZINE HCL 25 MG/ML INJ IVP PRN ×3 (06:44→21:06)
[2018-10-06] MEDS: FAMOTIDINE 20 MG TAB PO SCH ×2 (08:28→21:46)
[2018-10-06] MEDS: MULTIVITAMINS 1 EACH TAB PO SCH (08:28)
[2018-10-06] MEDS: CHOLECALCIFEROL VIT D3 1,000 UNITS TAB PO SCH (08:28)
[2018-10-06] MEDS: SENNOSIDES/DOCUSATE SODIUM TAB PO SCH ×2 (08:29→21:46)
[2018-10-06] MEDS: ENOXAPARIN 120 MG/0.8 ML SYR SC SCH ×2 (08:33→21:46)
[2018-10-06] MEDS: PHENAZOPYRIDINE HCL 200 MG TAB PO PRN ×2 (09:28→21:46)
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
[2018-10-06] MEDS: HYDROmorphONE/DILAUDID 1 MG/ML INJ IVP PRN ×2 (11:02→21:06)
[2018-10-06] MEDS: ONDANSETRON 4 MG/2 ML VIAL IVP PRN (11:03)
[2018-10-06] MEDS: [UNRECOGNIZED DRUG - OTHER] PR SCH ×2 (11:08→21:46)
[2018-10-06] MEDS: MBX SOLN 30 ML BOTTLE PO SCH ×2 (12:23→21:47)
[2018-10-06] MEDS: DIAZEPAM 5 MG TAB PO PRN (14:24)
--- NOTE | 2018-10-06 15:02 | ASMTCMCOM ---
CM Note CM Note Notes: Plan of care reviewed in rounds. Patient unwilling to consider return to [facility], referrals sent but unlikely to find alternative living situation given his needs and [place] as payor source. Surgery Friday, CM to follow. Plan: TBD Date Signed: 10/06/2018 03:01 PM Electronically Signed By:Elizabeth Cui RN
[2018-10-07] MEDS: SENNOSIDES/DOCUSATE SODIUM TAB PO SCH ×2 (09:03→20:43)
[2018-10-07] MEDS: FAMOTIDINE 20 MG TAB PO SCH ×2 (09:04→20:07)
[2018-10-07] MEDS: MULTIVITAMINS 1 EACH TAB PO SCH (09:05)
[2018-10-07] MEDS: CHOLECALCIFEROL VIT D3 1,000 UNITS TAB PO SCH (09:05)
[2018-10-07] MEDS: PHENAZOPYRIDINE HCL 200 MG TAB PO PRN ×2 (09:06→22:34)
[2018-10-07] MEDS: ENOXAPARIN 120 MG/0.8 ML SYR SC SCH ×2 (09:09→20:06)
[2018-10-07] MEDS: MBX SOLN 30 ML BOTTLE PO SCH ×2 (09:13→20:29)
[2018-10-07] MEDS: [UNRECOGNIZED DRUG - OTHER] PR SCH ×2 (09:30→20:07)
[2018-10-07] MEDS: PROMETHAZINE HCL 25 MG/ML INJ IVP PRN ×2 (09:42→20:07)
[2018-10-07] MEDS: HYDROmorphONE/DILAUDID 1 MG/ML INJ IVP PRN ×2 (09:43→20:07)
--- NOTE | 2018-10-07 14:43 | SOAPPROG ---
SOAP Progress Note Assessment/Plan: Assessment: 43 yo with C5 paraplegia [place] diagnosis of ulcerative colitis but does not fit with clinical picture and has no findings of UC on proximal scope Had diverting ostomy due to sacral decub. 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 Discussed risks and benefits. Scheduled for 10/09 IVC filter placed on Friday. Dressing removed today. Hold Lovenox Friday am before surgery. Plan to restart evening after surgery or following day. I would rather restart Lovenox with still some oozing from surgical site rather than risk a blood clot. Reviewed nature of procedure with him including consent form. Plan for robotic surgery to remove remaining sigmoid colon and leave sphincters intact. Will plan to remove remnant through anus and avoid extra abdominal incision if possible. Patient will wait to sign consent until morning of surgery. S: Feeling well, looking forward to surgery. O: General: Pleasant, sitting upright in bed. HENT: Normocephalic, pupils equal and round, mucous membranes moist, no scleral icterus. Lungs: No increased work of breathing Cardiac: No peripheral edema Skin: warm and dry. incision site from IVC filter placement CDI. Psych: mood and affect normal Plan: 09/13/18 10:49 10/01/18 19:48 10/03/18 07:33 10/07/18 14:33 Objective: Vital Signs Temp Pulse Resp BP Pulse Ox 36.3 C 78 16 99/62 L 91 L 10/07/18 11:36 10/07/18 11:36 10/07/18 11:36 10/07/18 11:36 10/07/18 11:36 Laboratory Results 10/05/18 15:50 10/05/18 06:45 10/06/18 10/07/18 10/08/18 05:59 05:59 05:59 Intake Total 2100 3333 100 Output Total 1400 2450 100 Balance 700 883 0 PT 15.7 SEC (12.0-15.0) H 10/05/18 06:45 INR 1.23 (0.83-1.16) H 10/05/18 06:45 ICD10 Worksheet Patient Problems: Problems Problem Status Onset Abdominal pain Acute Nausea Acute Rectal bleeding Acute
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
[2018-10-07] MEDS: HYDROmorphONE/DILAUDID 4 MG TAB PO PRN ×2 (16:23→21:57)
[2018-10-07] MEDS: DIAZEPAM 5 MG TAB PO PRN (22:34)
[2018-10-08] MEDS: HYDROmorphONE/DILAUDID 4 MG TAB PO PRN ×2 (01:57→15:07)
[2018-10-08] MEDS: PROMETHAZINE HCL 25 MG/ML INJ IVP PRN ×4 (01:57→21:15)
[2018-10-08] MEDS: PHENAZOPYRIDINE HCL 200 MG TAB PO PRN ×2 (08:59→23:28)
[2018-10-08] MEDS: CHOLECALCIFEROL VIT D3 1,000 UNITS TAB PO SCH (09:00)
[2018-10-08] MEDS: MULTIVITAMINS 1 EACH TAB PO SCH (09:00)
[2018-10-08] MEDS: SENNOSIDES/DOCUSATE SODIUM TAB PO SCH ×2 (09:00→21:39)
[2018-10-08] MEDS: FAMOTIDINE 20 MG TAB PO SCH ×2 (09:00→21:39)
[2018-10-08] MEDS: ENOXAPARIN 120 MG/0.8 ML SYR SC SCH ×2 (09:01→21:40)
[2018-10-08] MEDS: HYDROmorphONE/DILAUDID 1 MG/ML INJ IVP PRN ×2 (09:01→21:15)
[2018-10-08] MEDS: MBX SOLN 30 ML BOTTLE PO SCH ×2 (09:11→21:41)
[2018-10-08] MEDS: [UNRECOGNIZED DRUG - OTHER] PR SCH ×2 (09:55→21:31)
[2018-10-08] MEDS: ONDANSETRON 4 MG/2 ML VIAL IVP PRN (13:16)
[2018-10-08] MEDS: fentaNYL 12 MCG PATCH TD SCH (15:07)
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
[2018-10-09] MEDS: DIAZEPAM 5 MG TAB PO PRN (02:27)
[2018-10-09] MEDS: HYDROmorphONE/DILAUDID 4 MG TAB PO PRN (02:50)
[2018-10-09] MEDS: PROMETHAZINE HCL 25 MG/ML INJ IVP PRN ×5 (03:29→20:36)
[2018-10-09 07:08] LABS: PLATELET COUNT 274 10^3/uL (150-400)
[2018-10-09 07:16] LABS: INR 1.15 (0.83-1.16); PROTIME(PATIENT) 14.9 SEC (12.0-15.0)
[2018-10-09] MEDS: [UNRECOGNIZED DRUG - OTHER] PR SCH (09:27)
[2018-10-09] MEDS: HYDROmorphONE/DILAUDID 1 MG/ML INJ IVP PRN ×3 (09:36→20:37)
--- NOTE | 2018-10-09 10:46 | ASMTCMCOM ---
CM Note CM Note Notes: Patient to have abdominal surgery today w Dr Fragoso. Per previous CM notes, patient dissatisfied with [facility] and is working on trying to find a new LTC facility. Case Management will follow. Date Signed: 10/09/2018 10:45 AM Electronically Signed By:Mamie Varela RN
[2018-10-09] MEDS ORDERED: HYDROmorphONE/DILAUDID 2 MG/ML INJ ONE ×3 (11:18→16:48)
[2018-10-09] MEDS ORDERED: LR 1,000 ML IV ONE (11:23)
[2018-10-09] MEDS ORDERED: BUPIVACAINE 0.5% 30 ML SDV ONE (11:46)
[2018-10-09] MEDS ORDERED: INDOCYANINE GREEN 25 MG VIAL ONE (11:46)
[2018-10-09] MEDS ORDERED: MIDAZOLAM 2 MG/2 ML VIAL ONE (12:17)
[2018-10-09] MEDS ORDERED: fentaNYL 250 MCG/5 ML INJ ONE (12:25)
[2018-10-09] MEDS ORDERED: PROPOFOL/EMULSION 500 MG/50 ML BOTTLE IV ONE (12:26)
[2018-10-09] MEDS ORDERED: ROCURONIUM 100 MG/10 ML VIAL ONE (12:27)
[2018-10-09] MEDS ORDERED: LIDOCAINE 2% 100 MG/5 ML SYR ONE (12:29)
[2018-10-09] MEDS ORDERED: LIDOCAINE HCL 160 MG/4 ML LTA KIT TP ONE (12:31)
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
[2018-10-09] MEDS: MBX SOLN 30 ML BOTTLE PO SCH ×2 (13:14→18:10)
[2018-10-09] MEDS: FAMOTIDINE 20 MG TAB PO SCH ×2 (13:14→20:38)
[2018-10-09] MEDS: CHOLECALCIFEROL VIT D3 1,000 UNITS TAB PO SCH (13:14)
[2018-10-09] MEDS: SENNOSIDES/DOCUSATE SODIUM TAB PO SCH ×2 (13:15→20:38)
[2018-10-09] MEDS: MULTIVITAMINS 1 EACH TAB PO SCH (13:15)
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
[2018-10-09] MEDS ORDERED: MIDAZOLAM 2 MG/2 ML VIAL IVP ONE (13:48)
[2018-10-09] MEDS ORDERED: PROPOFOL 200 MG/20 ML VIAL ONE (14:00)
[2018-10-09] MEDS ORDERED: SUGAMMADEX SODIUM 200 MG/2 ML VIAL IVP ONE (14:45)
--- NOTE | 2018-10-09 15:01 | POSTOPPROG ---
Post Op Note Date of Operation: 10/09/18 Surgeon: Genny Fragoso Business Process Associate: shelly Anesthesiologist: jose Anesthesia: GET(General Endotracheal) Pre-op Diagnosis: diversion colitis Post-op Diagnosis: same Indication: 43yo paraplegic with colostomy and diversion colitis Procedure: da ashely excision of rectal stump with transanal excision Findings: none unusual Inf/Abcess present in the surg proc area at time of surgery?: No EBL: Minimal Drains: Anup Bunch Specimen(s): Rectum
[2018-10-09] MEDS ORDERED: PROMETHAZINE HCL 25 MG/ML INJ ONE (15:04)
[2018-10-09] MEDS ORDERED: fentaNYL 100 MCG/2 ML INJ ONE ×2 (15:10→15:46)
[2018-10-09] MEDS: fentaNYL 100 MCG/2 ML INJ IVP PRN ×5 (15:15→15:57)
[2018-10-09] MEDS ORDERED: METOCLOPRAMIDE 10 MG/2 ML VIAL IVP PRN (15:27)
[2018-10-09] MEDS ORDERED: PHENYLEPHRINE HCL 100 MCG/ML SYR IVP PRN (15:27)
[2018-10-09] MEDS ORDERED: ALBUTEROL 3 ML DEYVIAL IH PRN (15:27)
[2018-10-09] MEDS ORDERED: DEXAMETHASONE 4 MG/ML VIAL IVP PRN (15:27)
[2018-10-09] MEDS ORDERED: ONDANSETRON 4 MG/2 ML VIAL IVP PRN (15:27)
[2018-10-09] MEDS ORDERED: LR 500 ML IV PRN (15:27)
[2018-10-09] MEDS ORDERED: MEPERIDINE 25 MG/0.5 ML AMP IVP PRN (15:27)
[2018-10-09] MEDS ORDERED: DIAZEPAM 5 MG/ML 1 ML SYR IVP PRN (15:27)
[2018-10-09] MEDS ORDERED: NALOXONE HCL 0.4 MG/ML INJ IVP PRN (15:27)
--- NOTE | 2018-10-09 15:29 | POSTANESTH ---
Post Anesthetic Evaluation Cardiovascular Status: Normal, Stable Respiratory Status: Normal, Stable, Tx Decrease in SpO2 Level of Consciousness/Mental Status: Can Participate in Eval, Mildly Sleepy, Arousable Pain Control: Adequate, Prn Tx Ordered Nausea/Vomiting Control: Adequate, Prn Tx Ordered Complications Possibly Related to Anesthesia: None Noted
[2018-10-09] MEDS ORDERED: MEPERIDINE 25 MG/0.5 ML AMP ONE (15:35)
[2018-10-09] MEDS: HYDROmorphONE/DILAUDID 2 MG/ML INJ IVP PRN ×5 (15:40→16:49)
[2018-10-09] MEDS: ENOXAPARIN 120 MG/0.8 ML SYR SC SCH (20:39)
[2018-10-10] MEDS: HYDROmorphONE/DILAUDID 1 MG/ML INJ IVP PRN ×7 (01:03→22:45)
[2018-10-10] MEDS: PHENAZOPYRIDINE HCL 200 MG TAB PO PRN ×2 (01:51→14:57)
[2018-10-10] MEDS: PROMETHAZINE HCL 25 MG/ML INJ IVP PRN ×4 (02:40→22:45)
[2018-10-10] MEDS: ONDANSETRON 4 MG/2 ML VIAL IVP PRN ×3 (05:22→19:08)
[2018-10-10] MEDS: HYDROmorphONE/DILAUDID 4 MG TAB PO PRN (08:44)
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
[2018-10-10] MEDS ORDERED: HYDROmorphONE/DILAUDID 1 MG/ML INJ IVP PRN (09:03)
[2018-10-10] MEDS: ENOXAPARIN 120 MG/0.8 ML SYR SC SCH ×2 (10:14→22:28)
[2018-10-10] MEDS: FAMOTIDINE 20 MG TAB PO SCH ×2 (10:17→22:29)
[2018-10-10] MEDS: SENNOSIDES/DOCUSATE SODIUM TAB PO SCH ×2 (10:18→22:35)
[2018-10-10] MEDS: CHOLECALCIFEROL VIT D3 1,000 UNITS TAB PO SCH (10:21)
[2018-10-10] MEDS: MULTIVITAMINS 1 EACH TAB PO SCH (10:21)
[2018-10-10] MEDS: MBX SOLN 30 ML BOTTLE PO SCH ×2 (10:24→22:29)
[2018-10-10] MEDS: DIAZEPAM 5 MG TAB PO PRN (10:30)
--- NOTE | 2018-10-10 10:36 | SOAPPROG ---
SOAP Progress Note Assessment/Plan: Assessment/Plan: 43 yo with C5 paraplegia c colostomy and diversion colitis s/p da ashely excision of rectal stump with transanal excision. POD#1. Seen and examined with Dr. Rivera. Pain control. IV dilaudid working better than pills. Continue antiemetics. IVC filter placed on Friday. Back on treatment dose of lovenox. Advance diet as tolerated. S: c/o abdominal pain. having nausea. O: General: Pleasant, sitting upright in bed. HENT: Normocephalic, pupils equal and round, mucous membranes moist, no scleral icterus. Lungs: No increased work of breathing Cardiac: RRR Skin: warm and dry. incision CDI. drain serosanguinous. Psych: mood and affect normal 10/10/18 10:36 Objective: Vital Signs Temp Pulse Resp BP Pulse Ox 36.4 C 83 14 95/61 L 95 10/10/18 07:31 10/10/18 07:31 10/10/18 07:31 10/10/18 07:31 10/10/18 07:31 Laboratory Results 10/09/18 06:50 10/09/18 06:50 10/09/18 10/10/18 10/11/18 05:59 05:59 05:59 Intake Total 1875 1805 Output Total 2750 3420 Balance -875 -1615 PT 14.9 SEC (12.0-15.0) 10/09/18 06:50 INR 1.15 (0.83-1.16) 10/09/18 06:50 ICD10 Worksheet Patient Problems: Problems Problem Status Onset Abdominal pain Acute Nausea Acute Rectal bleeding Acute
[2018-10-10] MEDS: NS 1,000 ML IV SCH (11:45)
--- NOTE | 2018-10-10 13:59 | GOP ---
[f rep st] OPERATIVE REPORT DATE OF OPERATION: 10/09/2018 SURGEON: Genny Fragoso MD SECRETARY RECEPTIONIST: Magui Hsu, PAC. ANESTHESIA: Dr. Adams/general. PREOPERATIVE DIAGNOSIS: C5 paraplegia with diversion colitis. POSTOPERATIVE DIAGNOSIS: C5 paraplegia with diversion colitis. PROCEDURE PERFORMED: Proctectomy. FINDINGS: Sigmoid and rectum were sewn to the ostomy. The bowel did not appear abnormal externally. ESTIMATED BLOOD LOSS: 10 cc. INDICATIONS: Franck Claros is a 43-year-old with paraplegia. He had a decubitus ulcer and required an ostomy. He is now having severe diversion colitis. Despite trying enemas, his pain and mucus have not improved. Franck did want to have the opportunity to have his ostomy reversed in the future and so he requested a bit of a rectal stump. DESCRIPTION OF PROCEDURE: Patient was brought into the operating room, placed supine on the table, and general anesthesia was administered. He was then placed in a lithotomy position. His ostomy was excluded. His abdomen and perineum were prepped and draped in the usual sterile fashion. Infiltrated all sites with 0.5% Marcaine prior to making the incision. I made an incision above and right to his umbilicus. I elevated it. I inserted the Veress needle and it passed the hanging drop test. His abdomen was insufflated easily to a pressure of 15 mmHg. I placed an 8 mm trocar with a camera at this site. There were no injuries from Veress needle placement. Under direct vision, I was able to place 3 other additional 8 mm trocars in a line from the costal margin on the left side to the anterior superior iliac spine on the right side. I brought the robot in and docked it. I placed a tip up in arm 1, Maury in arm 2 and a Harmonic in arm 4. I moved to the console. I explored his abdomen. I swept his small bowel up from the pelvis. He did have some fluid in his pelvis. Due to his small bowel wanting to return to the pelvis, I placed the clinical services assistant 5 mm trocar. My clinical services assistant was able to suction the fluid in the pelvis, as well as retract the small bowel. I could see that he had a long segment of his sigmoid and rectum. I was able to divide this starting from where it was sewn to the ostomy with Prolene down past the peritoneal reflection. I used a Harmonic and I stayed close to the rectum to avoid any other structures. There was very minimal bleeding. Once dissection was completed, I used heated Endo Niranjan to open the colon. I passed the sigmoid and rectum through the colon. Next, I grasped the edges of the bowel and inserted a CARLY 45 blue load and stapled the remaining rectum closed. I used 2 loads. I removed the additional piece of rectum through the port on the abdomen. I placed a drain through the assist port directed toward the pelvis. This was sutured into place with 3-0 nylon. The robot was undocked. Ports were removed. I re-scrubbed. I closed the fascia at the 12 mm trocar site by the right ASIS with 0 Vicryl. I closed all skin with 4-0 Monocryl. Dermabond applied. He was taken out of the lithotomy position, awakened in the operating room, extubated, transferred to PACU in stable condition. /[id number]/MODL MTDD
[2018-10-10] MEDS ORDERED: MBX SOLN 30 ML BOTTLE PO ONE (15:16)
[2018-10-10] MEDS: ALTEPLASE 2 MG VIAL IVP PRN (15:37)
[2018-10-11] MEDS: PHENAZOPYRIDINE HCL 200 MG TAB PO PRN ×3 (00:22→16:52)
[2018-10-11] MEDS: NS 1,000 ML IV SCH (00:24)
[2018-10-11] MEDS: HYDROmorphONE/DILAUDID 1 MG/ML INJ IVP PRN ×7 (03:22→20:52)
[2018-10-11] MEDS: DIAZEPAM 5 MG TAB PO PRN (03:46)
[2018-10-11] MEDS: MAG HYDROX/AL HYDROX/SIMETH 30 ML UDCUP PO PRN (03:49)
[2018-10-11] MEDS: ENOXAPARIN 120 MG/0.8 ML SYR SC SCH ×2 (08:35→22:25)
[2018-10-11] MEDS: PROMETHAZINE HCL 25 MG/ML INJ IVP PRN ×3 (08:36→20:52)
--- NOTE | 2018-10-11 09:22 | SOAPPROG ---
SOAP Progress Note Assessment/Plan: Assessment/Plan: 43 yo with C5 paraplegia c colostomy and diversion colitis s/p da ashely excision of rectal stump with transanal excision. POD#2. Pain control. IV dilaudid working better than pills. Continue antiemetics--phenergan only thing helping. IVC filter placed on Friday. Back on treatment dose of lovenox. Advance diet as tolerated. Drains and wounds ok. Ostomy c output. S: c/o abdominal pain. having nausea. didn't sleep well. phenergan and dilaudid helping. O: General: alert, nad HENT: Normocephalic, pupils equal and round, mucous membranes moist, no scleral icterus. Lungs: No increased work of breathing Cardiac: RRR Skin: warm and dry. incision CDI. drain serosanguinous. +BS Psych: mood and affect normal 10/11/18 09:21 Objective: Vital Signs Temp Pulse Resp BP Pulse Ox 36.3 C 74 16 118/84 H 93 10/11/18 07:57 10/11/18 07:57 10/11/18 08:47 10/11/18 07:57 10/11/18 08:47 Laboratory Results 10/11/18 04:00 10/09/18 06:50 10/10/18 10/11/18 10/12/18 05:59 05:59 05:59 Intake Total 1999 474 1447 Output Total 3420 2800 Balance -1614 -2011 1188 PT 14.9 SEC (12.0-15.0) 10/09/18 06:50 INR 1.15 (0.83-1.16) 10/09/18 06:50 ICD10 Worksheet Patient Problems: Problems Problem Status Onset Abdominal pain Acute Nausea Acute Rectal bleeding Acute
[2018-10-11] MEDS ORDERED: LORazepam 2 MG/ML INJ IVP ONE ×2 (10:47)
[2018-10-11] MEDS: MBX SOLN 30 ML BOTTLE PO SCH ×2 (11:44→22:27)
[2018-10-11] MEDS: CHOLECALCIFEROL VIT D3 1,000 UNITS TAB PO SCH (12:47)
[2018-10-11] MEDS: MULTIVITAMINS 1 EACH TAB PO SCH (12:47)
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
[2018-10-11] MEDS: FAMOTIDINE 20 MG TAB PO SCH ×2 (14:58→22:25)
[2018-10-11] MEDS: SENNOSIDES/DOCUSATE SODIUM TAB PO SCH ×2 (14:58→22:27)
[2018-10-11] MEDS: CEPACOL LOZENGE PO PRN ×2 (15:04→16:47)
[2018-10-11] MEDS: fentaNYL 12 MCG PATCH TD SCH (16:08)
[2018-10-11] MEDS: ONDANSETRON 4 MG/2 ML VIAL IVP PRN (18:34)
[2018-10-11] MEDS: MIDODRINE HCL 5 MG TAB PO PRN (19:37)
[2018-10-12] MEDS: HYDROmorphONE/DILAUDID 1 MG/ML INJ IVP PRN ×6 (00:27→17:55)
[2018-10-12] MEDS: DIAZEPAM 5 MG TAB PO PRN (01:21)
[2018-10-12] MEDS: MAG HYDROX/AL HYDROX/SIMETH 30 ML UDCUP PO PRN (03:52)
[2018-10-12] MEDS: PROMETHAZINE HCL 25 MG/ML INJ IVP PRN ×3 (06:30→17:59)
[2018-10-12] MEDS: MBX SOLN 30 ML BOTTLE PO SCH ×2 (09:15→20:02)
[2018-10-12] MEDS: ENOXAPARIN 120 MG/0.8 ML SYR SC SCH ×2 (09:20→20:00)
[2018-10-12] MEDS: FAMOTIDINE 20 MG TAB PO SCH ×2 (09:22→19:59)
[2018-10-12] MEDS: PHENAZOPYRIDINE HCL 200 MG TAB PO PRN ×2 (09:27→17:59)
[2018-10-12] MEDS: CHOLECALCIFEROL VIT D3 1,000 UNITS TAB PO SCH (09:36)
[2018-10-12] MEDS: SENNOSIDES/DOCUSATE SODIUM TAB PO SCH ×2 (09:44→20:01)
[2018-10-12] MEDS: MULTIVITAMINS 1 EACH TAB PO SCH (09:44)
[2018-10-12] MEDS: SIMETHICONE 80 MG TAB CHEW PO SCH ×3 (12:34→23:12)
[2018-10-12] MEDS: CEPACOL LOZENGE PO PRN (12:34)
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
[2018-10-12] MEDS: HYDROmorphONE/DILAUDID 4 MG TAB PO PRN ×2 (13:59→19:59)
[2018-10-12] MEDS: MIDODRINE HCL 5 MG TAB PO PRN (14:05)
[2018-10-12] MEDS ORDERED: fentaNYL 25 MCG PATCH TD SCH (15:00)
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
--- NOTE | 2018-10-12 17:40 | SOAPPROG ---
SOAP Progress Note Assessment/Plan: Assessment/Plan: 43 yo with C5 paraplegia c colostomy and diversion colitis s/p da ashely excision of rectal stump with transanal excision. POD#3. Pain control. Transition to PO Continue antiemetics--phenergan only thing helping. IVC filter placed on Friday. Therapeutic lovenox. Regular diet Return of bowel function KRISTOPHER drain serosanguinous Dispo: doing well from surgical standpoint. OK to DC when tolerating PO meds S: continues to have abdominal pain and nausea, improving with meds. O: General: alert, nad HENT: Normocephalic, pupils equal and round, mucous membranes moist, no scleral icterus. Lungs: No increased work of breathing Skin: warm and dry. incision CDI. drain serosanguinous. +BS Psych: mood and affect normal Objective: Vital Signs Temp Pulse Resp BP Pulse Ox 36.7 C 72 16 118/81 H 92 10/12/18 16:43 10/12/18 16:43 10/12/18 16:43 10/12/18 16:43 10/12/18 16:43 Laboratory Results 10/11/18 04:00 10/12/18 06:00 10/11/18 10/12/18 10/13/18 05:59 05:59 05:59 Intake Total 788 2038 525 Output Total 2800 1760 1585 278 -1060 PT 14.9 SEC (12.0-15.0) 10/09/18 06:50 INR 1.15 (0.83-1.16) 10/09/18 06:50 ICD10 Worksheet Patient Problems: Problems Problem Status Onset Abdominal pain Acute Nausea Acute Rectal bleeding Acute
[2018-10-13] MEDS: PROMETHAZINE HCL 25 MG/ML INJ IVP PRN ×2 (00:06→09:56)
[2018-10-13] MEDS: HYDROmorphONE/DILAUDID 1 MG/ML INJ IVP PRN ×2 (00:06→15:25)
[2018-10-13] MEDS: PHENAZOPYRIDINE HCL 200 MG TAB PO PRN ×2 (00:23→21:30)
[2018-10-13] MEDS: HYDROmorphONE/DILAUDID 4 MG TAB PO PRN ×2 (06:15→21:30)
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
[2018-10-13] MEDS: ENOXAPARIN 120 MG/0.8 ML SYR SC SCH ×2 (09:51→21:24)
[2018-10-13] MEDS: MULTIVITAMINS 1 EACH TAB PO SCH (09:52)
[2018-10-13] MEDS: fentaNYL 25 MCG PATCH TD SCH (09:53)
[2018-10-13] MEDS: FAMOTIDINE 20 MG TAB PO SCH ×2 (09:54→21:24)
[2018-10-13] MEDS: CHOLECALCIFEROL VIT D3 1,000 UNITS TAB PO SCH (09:54)
[2018-10-13] MEDS: SENNOSIDES/DOCUSATE SODIUM TAB PO SCH ×2 (09:55→21:24)
[2018-10-13] MEDS: SIMETHICONE 80 MG TAB CHEW PO SCH ×4 (09:55→21:24)
[2018-10-13] MEDS: MBX SOLN 30 ML BOTTLE PO SCH ×2 (09:56→21:25)
[2018-10-13] MEDS ORDERED: KETOROLAC 30 MG/1 ML SDV IVP PRN (11:29)
[2018-10-13] MEDS ORDERED: KETOROLAC 15 MG/1 ML SDV IVP PRN (11:43)
[2018-10-13] MEDS ORDERED: HALOPERIDOL 0.5 MG TAB PO PRN (11:50)
[2018-10-13] MEDS ORDERED: HALOPERIDOL 1 MG TAB PO PRN (12:30)
--- NOTE | 2018-10-13 12:50 | ASMTCMCOM ---
CM Note CM Note Notes: Patient plan of care reviewed in am rounds. Hopefully can dc back to [facility] tomorrow. Patient and family working with [facility] to find alternative placement. CM to follow. Plan: Dc to SNF Date Signed: 10/13/2018 12:50 PM Electronically Signed By:Elizabeth Cui RN
--- NOTE | 2018-10-13 14:41 | SOAPPROG ---
SOAP Progress Note Assessment/Plan: Assessment: Chronic urinary retention with indwelling SP tube due to quadraplegia from [facility] in 2013. Plan: 1. SP tube changed without complication today. 2. Continue with once-monthly and prn SP tube changes. (consult # [id number]) Subjective: Request by nursing staff, upon orders by attending physicians, to replace SP tube. Objective: Vital Signs Temp Pulse Resp BP Pulse Ox 36.8 C 72 18 112/77 91 L 10/13/18 11:23 10/13/18 11:23 10/13/18 11:23 10/13/18 11:23 10/13/18 11:23 Laboratory Results 10/13/18 12:30 10/12/18 06:00 10/12/18 10/13/18 10/14/18 05:59 05:59 05:59 Intake Total 2038 925 Output Total 1760 2700 Balance 278 -1775 PT 14.9 SEC (12.0-15.0) 10/09/18 06:50 INR 1.15 (0.83-1.16) 10/09/18 06:50 ICD10 Worksheet Patient Problems: Problems Problem Status Onset Abdominal pain Acute Chronic flaccid quadriplegia Acute Nausea Acute Proctitis Acute Rectal bleeding Acute
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
[2018-10-13] MEDS: MIDODRINE HCL 5 MG TAB PO PRN (15:27)
--- NOTE | 2018-10-13 16:19 | ASMTCMCOM ---
CM Note CM Note Notes: Spoke with Franck's mother Alannah [phone] who had called and left a message regarding Franck possibly discharging to [facility] instead of [facility]. I explained the process of transfer with the Elver and Zander from [facility] as well as the Supervisor Ore Dressing will require interactions of all involved parties to assist with the transfer of this patient to another facility. Alannah is upset and is not understanding the due processes involved in the transfer of care. I tried to explain it and she became upset stating that it was not a safe plan of care and that [place] should be ashamed to have a facility like this in the city. I attempted to inform her that the [facility] Department does inspections on all SNF and the facility would be closed if inspections were not passed. I have provided her my supervisors contact information. I have attempted to call Monet Newsome [phone] numerous times this afternoon. CM to follow. Plan: Dc to SNF when medically cleared for discharge. Date Signed: 10/13/2018 04:19 PM Electronically Signed By:Elizabeth Cui RN
[2018-10-14] MEDS: ONDANSETRON 4 MG/2 ML VIAL IVP PRN ×2 (00:02→18:26)
[2018-10-14] MEDS: SIMETHICONE 80 MG TAB CHEW PO SCH ×4 (08:11→20:05)
[2018-10-14] MEDS: HYDROmorphONE/DILAUDID 4 MG TAB PO PRN ×3 (08:12→20:18)
[2018-10-14] MEDS: FAMOTIDINE 20 MG TAB PO SCH ×2 (08:12→20:04)
[2018-10-14] MEDS: ENOXAPARIN 120 MG/0.8 ML SYR SC SCH ×2 (08:12→20:05)
[2018-10-14] MEDS: PROMETHAZINE HCL 25 MG/ML INJ IVP PRN (08:12)
[2018-10-14] MEDS: CHOLECALCIFEROL VIT D3 1,000 UNITS TAB PO SCH (08:21)
[2018-10-14] MEDS: MULTIVITAMINS 1 EACH TAB PO SCH (08:22)
[2018-10-14] MEDS: SENNOSIDES/DOCUSATE SODIUM TAB PO SCH ×2 (08:22→20:04)
[2018-10-14] MEDS: MBX SOLN 30 ML BOTTLE PO SCH ×2 (08:23→20:09)
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
[2018-10-14] MEDS: MAG HYDROX/AL HYDROX/SIMETH 30 ML UDCUP PO PRN (14:30)
--- NOTE | 2018-10-14 16:21 | ASMTCMCOM ---
CM Note CM Note Notes: CM submit referrals to [facility] and spoke with Ev who reports that they cannot accept pt at this time. CM to follow. CM paper testing supervisor Marixa Jones involved. Date Signed: 10/14/2018 04:20 PM Electronically Signed By:JUNAID Robertson
[2018-10-14] MEDS ORDERED: ONDANSETRON DISINTEGRATING 4 MG TAB PO PRN (17:53)
[2018-10-14] MEDS ORDERED: ONDANSETRON 4 MG/2 ML VIAL IVP PRN (17:56)
[2018-10-14] MEDS: HYDROmorphONE/DILAUDID 1 MG/ML INJ IVP PRN (18:31)
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
[2018-10-14] MEDS: D5W NS 1,000 ML IV SCH (20:18)
[2018-10-15] MEDS: PROMETHAZINE HCL 25 MG/ML INJ IVP PRN ×3 (01:12→20:07)
[2018-10-15] MEDS: HYDROmorphONE/DILAUDID 1 MG/ML INJ IVP PRN ×3 (01:12→18:36)
[2018-10-15] MEDS: MAG HYDROX/AL HYDROX/SIMETH 30 ML UDCUP PO PRN (01:35)
[2018-10-15] MEDS: D5W NS 1,000 ML IV SCH ×2 (04:37→12:23)
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
[2018-10-15] MEDS: PHENAZOPYRIDINE HCL 200 MG TAB PO PRN ×2 (09:52→23:48)
[2018-10-15] MEDS: MBX SOLN 30 ML BOTTLE PO SCH ×2 (09:52→20:12)
[2018-10-15] MEDS: CHOLECALCIFEROL VIT D3 1,000 UNITS TAB PO SCH (09:53)
[2018-10-15] MEDS: SENNOSIDES/DOCUSATE SODIUM TAB PO SCH ×2 (09:53→20:08)
[2018-10-15] MEDS: FAMOTIDINE 20 MG TAB PO SCH ×2 (09:53→20:07)
[2018-10-15] MEDS: MULTIVITAMINS 1 EACH TAB PO SCH (09:53)
[2018-10-15] MEDS: SIMETHICONE 80 MG TAB CHEW PO SCH ×4 (09:54→23:00)
[2018-10-15] MEDS: ENOXAPARIN 120 MG/0.8 ML SYR SC SCH ×2 (09:54→22:20)
[2018-10-15] MEDS: DIAZEPAM 5 MG TAB PO PRN (12:05)
[2018-10-15] MEDS: HYDROmorphONE/DILAUDID 4 MG TAB PO PRN ×2 (12:26→20:08)
[2018-10-15] MEDS ORDERED: fentaNYL 100 MCG/2 ML INJ IVP PRN (13:38)
[2018-10-15] MEDS ORDERED: NALOXONE HCL 0.4 MG/ML INJ IVP PRN (13:38)
[2018-10-15] MEDS ORDERED: MIDAZOLAM 2 MG/2 ML VIAL IVP PRN (13:38)
[2018-10-15] MEDS ORDERED: FLUMAZENIL 0.5 MG/5 ML MDV IVP PRN (13:38)
--- NOTE | 2018-10-15 13:38 | ASMTCMCOM ---
CM Note CM Note Notes: I spoke w patient who told me that his mother was talking to [facility] about a bed. I called and spoke w Ev at [facility] to investigate; she confirmed that they are not able to accept patient d/t medical complexity. I spoke w Zander at who will be by later today. I received a call from patient's mother who expressed concern that we are dumping patient back at (which she feels is an unsafe and unsavory place). She claims that we have not kept her informed of what we've been working on re: placement. I tried to explain that Franck's medical and behavioral needs (as well as Medicaid payor source) make placement very difficult and that we have been working diligently to exhaust all options. I encouraged her to speak with the Director of Case Management; I also escalated the case to Marixa Jones directly. We will continue to support Franck's transition back to the community, whereever that may be. Discharge likely in 1-3 days pending his ability to tolerate diet and PO meds. Date Signed: 10/15/2018 01:37 PM Electronically Signed By:Mamie Varela RN
[2018-10-15] MEDS ORDERED: NS 1,000 ML IV SCH (13:45)
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
[2018-10-15] MEDS ORDERED: NALOXONE HCL 0.4 MG/ML INJ ONE (15:42)
[2018-10-15] MEDS ORDERED: MIDAZOLAM 2 MG/2 ML VIAL ONE (15:42)
[2018-10-15] MEDS ORDERED: fentaNYL 100 MCG/2 ML INJ ONE (15:42)
[2018-10-15] MEDS ORDERED: FLUMAZENIL 0.5 MG/5 ML MDV IVP ONE (15:42)
--- NOTE | 2018-10-15 16:01 | ASMTCMCOM ---
CM Note CM Note Notes: Had a long conversation with Marianna Claros today. She wanted to express her concern about [facility]. This play writer let her know that a continued stay in the hospital is not appropriate and that will be the safe discharge. She will hire a care provider to look after geo in the senior care. At the end of the conversation, we were both on the same page with the plan to proceed to with hired care and family support. Discharge plan is for tomorrow. Geo called me following my conversation with Marianna. Geo let me know that he was not pleased about returning to [facility]. He stated that he wants another facility but not out of the proximity of Nursery. I explained that every facility in a 30 mile radius has declined him because he doesn't meet the criteria for SNF rehab or they do not have a LTC bed available. I offered to widen the search and he declined because it's hard for his girlfriend to drive to him when he is any further than [place]. The plan: discharge to with services added by Marianna (aide). This play writer will call the [employer] jerel Tidwell () to ensure that his care needs are met. Geo will continue to seek alternate living situation while in usiing his IPad and phone. Call into Dr. Fragoso to discuss. Case Management to follow. Date Signed: 10/15/2018 04:00 PM Electronically Signed By:Marixa Jones RN
[2018-10-15] MEDS ORDERED: IOPAMIDOL (ISOVUE-300) 100 ML BTL ONE (16:40)
--- NOTE | 2018-10-15 17:21 | PDPROPOC ---
Sedation Plan of Care Sedation Plan of Care: vital signs stable, mental status noted, patient educated of risks, benefits, alternatives, patient can tolerate sedation ASA Classification: ASA 2 Planned drugs: fentanyl, midazolam Mallampati Score: Class 2 Mallampati Reference Image: Patient passed 3-3-2 rule?: Yes
--- NOTE | 2018-10-15 17:21 | PDHPUP ---
History & Physical Update H&P update statement: This history and physical update is based on an assessment of the patient which was completed after admission or registration (within 24 hours), but prior to the surgery/procedure. Plan for IVC filter removal; caval filtration no longer indicated H&P update: no change in patient's condition since H&P completed
--- NOTE | 2018-10-15 17:22 | PDRADPN ---
Radiology Procedure Note Date of Procedure: 10/15/18 Radiologist: Adonay Long Anesthesia: IV Sedation Pre-op Diagnosis: caval filtration no longer indicated Post-op Diagnosis: caval filtration no longer indicated Indication: caval filtration no longer indicated Procedure: IVC filter retrieval Finding(s): Successful retrieval of IVC filter intact. Inf/Abcess present in the surg proc area at time of surgery?: No
[2018-10-15] MEDS ORDERED: HYDROmorphONE/DILAUDID 2 MG/ML INJ ONE (17:27)
[2018-10-15] MEDS: ONDANSETRON 4 MG/2 ML VIAL IVP PRN (17:29)
[2018-10-15] MEDS: POLYETHYLENE GLYCOL 3350 17 GM PKT PO SCH (18:37)
[2018-10-15] MEDS: MIDODRINE HCL 5 MG TAB PO PRN (21:15)
[2018-10-15] MEDS ORDERED: NS 1,000 ML IV ONE (21:16)
[2018-10-15] MEDS ORDERED: HYDROmorphONE/DILAUDID 1 MG/ML INJ IVP ONE (22:40)
[2018-10-16] MEDS: MAG HYDROX/AL HYDROX/SIMETH 30 ML UDCUP PO PRN (04:23)
[2018-10-16] MEDS: HYDROmorphONE/DILAUDID 1 MG/ML INJ IVP PRN (04:24)
[2018-10-16 04:27] LABS: PLATELET COUNT 267 10^3/uL (150-400)
[2018-10-16] MEDS: ONDANSETRON 4 MG/2 ML VIAL IVP PRN (06:39)
[2018-10-16] MEDS: HYDROmorphONE/DILAUDID 4 MG TAB PO PRN ×4 (06:39→22:07)
[2018-10-16] MEDS ORDERED: PROMETHAZINE HCL 25 MG TAB PO PRN (09:00)
[2018-10-16] MEDS: SIMETHICONE 80 MG TAB CHEW PO SCH ×4 (09:00→22:08)
[2018-10-16] MEDS: PHENAZOPYRIDINE HCL 200 MG TAB PO PRN (09:41)
[2018-10-16] MEDS: POLYETHYLENE GLYCOL 3350 17 GM PKT PO SCH (10:55)
[2018-10-16] MEDS: ENOXAPARIN 120 MG/0.8 ML SYR SC SCH ×2 (10:55→22:06)
[2018-10-16] MEDS: MBX SOLN 30 ML BOTTLE PO SCH ×2 (10:55→22:09)
[2018-10-16] MEDS: SENNOSIDES/DOCUSATE SODIUM TAB PO SCH ×2 (10:56→19:43)
[2018-10-16] MEDS: ONDANSETRON DISINTEGRATING 4 MG TAB PO SCH ×3 (10:57→22:07)
[2018-10-16] MEDS: FAMOTIDINE 20 MG TAB PO SCH ×2 (10:57→22:08)
[2018-10-16] MEDS: CHOLECALCIFEROL VIT D3 1,000 UNITS TAB PO SCH (11:00)
[2018-10-16] MEDS: fentaNYL 25 MCG PATCH TD SCH (11:08)
[2018-10-16] MEDS: HYOSCYAMINE SULFATE 0.125 MG TAB PO SCH ×3 (12:34→22:09)
[2018-10-16] MEDS: MULTIVITAMINS 1 EACH TAB PO SCH (12:42)
--- NOTE | 2018-10-16 13:22 | SOAPPROG ---
SOAP Progress Note Assessment/Plan: Assessment/Plan: 43 yo with C5 paraplegia c colostomy and diversion colitis s/p da ashely excision of rectal stump with transanal excision. POD#4. Pain control - transition to PO Nausea controlled with PO meds IVC filter removed yesterday 10/15/18 Regular diet Return of bowel function Dispo: ready to DC from surgical standpoint. Working on placement. Seen with Dr. Fragoso. S: abdominal pain, nausea. poor appetite. O: General: alert, nad HENT: Normocephalic, pupils equal and round, mucous membranes moist, no scleral icterus. Lungs: No increased work of breathing Skin: warm and dry. incision CDI. +BS. Colostomy stool and gas in appliance Psych: mood and affect normal Objective: Vital Signs Temp Pulse Resp BP Pulse Ox 36.6 C 78 16 124/87 H 95 10/16/18 08:00 10/16/18 08:00 10/16/18 08:00 10/16/18 08:00 10/16/18 08:00 Laboratory Results 10/16/18 04:05 10/16/18 04:05 10/15/18 10/16/18 10/17/18 05:59 05:59 05:59 Intake Total 480 1444 Output Total 300 1800 Balance 180 -356 PT 14.9 SEC (12.0-15.0) 10/09/18 06:50 INR 1.15 (0.83-1.16) 10/09/18 06:50 ICD10 Worksheet Patient Problems: Problems Problem Status Onset Abdominal pain Acute Nausea Acute Rectal bleeding Acute
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
[2018-10-16] MEDS: LIDOCAINE 4%/MENTHOL 1% PATCH TD SCH (17:34)
[2018-10-16] MEDS: PATCH REMOVAL 1 EA PATCH TD SCH (19:36)
[2018-10-17 03:57] LABS: PLATELET COUNT 282 10^3/uL (150-400)
[2018-10-17] MEDS: PHENAZOPYRIDINE HCL 200 MG TAB PO PRN (04:17)
[2018-10-17] MEDS: HYDROmorphONE/DILAUDID 4 MG TAB PO PRN ×3 (04:17→18:00)
[2018-10-17] MEDS: SIMETHICONE 80 MG TAB CHEW PO SCH ×4 (09:42→20:20)
[2018-10-17] MEDS: FAMOTIDINE 20 MG TAB PO SCH ×2 (09:42→20:20)
[2018-10-17] MEDS: CHOLECALCIFEROL VIT D3 1,000 UNITS TAB PO SCH (09:42)
[2018-10-17] MEDS: PROMETHAZINE HCL 25 MG TAB PO PRN ×2 (09:42→20:20)
[2018-10-17] MEDS: MULTIVITAMINS 1 EACH TAB PO SCH (09:42)
[2018-10-17] MEDS: LIDOCAINE 4%/MENTHOL 1% PATCH TD SCH (09:43)
[2018-10-17] MEDS: HYOSCYAMINE SULFATE 0.125 MG TAB PO SCH ×3 (09:43→19:15)
[2018-10-17] MEDS: ENOXAPARIN 120 MG/0.8 ML SYR SC SCH ×2 (09:43→20:22)
[2018-10-17] MEDS: MBX SOLN 30 ML BOTTLE PO SCH ×2 (09:44→20:21)
[2018-10-17] MEDS: ONDANSETRON DISINTEGRATING 4 MG TAB PO SCH ×3 (09:46→20:24)
[2018-10-17] MEDS: SENNOSIDES/DOCUSATE SODIUM TAB PO SCH ×2 (09:46→19:16)
[2018-10-17] MEDS: POLYETHYLENE GLYCOL 3350 17 GM PKT PO SCH (09:46)
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
[2018-10-17] MEDS: DIAZEPAM 5 MG TAB PO PRN ×2 (13:57→22:10)
[2018-10-17] MEDS: PATCH REMOVAL 1 EA PATCH TD SCH (19:15)
[2018-10-17] MEDS: MIDODRINE HCL 5 MG TAB PO PRN (20:33)
[2018-10-18] MEDS: PHENAZOPYRIDINE HCL 200 MG TAB PO PRN ×2 (00:04→16:09)
[2018-10-18] MEDS: HYDROmorphONE/DILAUDID 4 MG TAB PO PRN ×3 (00:04→16:09)
[2018-10-18] MEDS: PROMETHAZINE HCL 25 MG TAB PO PRN ×2 (05:22→20:36)
[2018-10-18 05:50] LABS: PLATELET COUNT 301 10^3/uL (150-400)
[2018-10-18] MEDS: ENOXAPARIN 120 MG/0.8 ML SYR SC SCH ×2 (10:02→20:37)
[2018-10-18] MEDS: SIMETHICONE 80 MG TAB CHEW PO SCH ×4 (10:03→20:36)
[2018-10-18] MEDS: ONDANSETRON DISINTEGRATING 4 MG TAB PO SCH ×4 (10:03→22:35)
[2018-10-18] MEDS: FAMOTIDINE 20 MG TAB PO SCH ×2 (10:03→20:36)
[2018-10-18] MEDS: LIDOCAINE 4%/MENTHOL 1% PATCH TD SCH (10:04)
[2018-10-18] MEDS: MBX SOLN 30 ML BOTTLE PO SCH ×2 (10:04→20:49)
[2018-10-18] MEDS: MULTIVITAMINS 1 EACH TAB PO SCH (10:06)
[2018-10-18] MEDS: SENNOSIDES/DOCUSATE SODIUM TAB PO SCH ×2 (10:07→19:40)
[2018-10-18] MEDS: POLYETHYLENE GLYCOL 3350 17 GM PKT PO SCH (10:07)
[2018-10-18] MEDS: CHOLECALCIFEROL VIT D3 1,000 UNITS TAB PO SCH (10:09)
[2018-10-18] MEDS: HYOSCYAMINE SULFATE 0.125 MG TAB PO SCH ×3 (10:09→19:40)
[2018-10-18] MEDS: DIAZEPAM 5 MG TAB PO PRN ×3 (10:13→23:47)
--- NOTE | 2018-10-18 11:48 | PDIAF ---
- Diagnosis Code Status: Full Code - Medication Management Discharge Medications: electronically signed and located in the Home Medication List. - Orders Services needed: Registered Nurse, Certified Compressed Gas Tester, Physical Therapy, Occupational Therapy Diet Recommendation: no restrictions on diet - Follow Up Care Current Providers and Referrals: [facility]ERVANTES [Other] - As per Instructions Genny Fragoso MD [Medical Doctor] - follow up in 1 week
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
--- NOTE | 2018-10-18 12:28 | ASMTCMCOM ---
CM Note CM Note Notes: Patient plan of care reviewed in am rounds. He is contesting his discharge. He has been given his Mary form and I ave placed the signed form on the chart. It is dated for today. Call received from Mary with [id number]. Per agent is has been stamped, timed and dated. This marketing underwriter once again discussed limited beds that accept LT Medicaid and that he has been declined by all referrals placed by CM up to date as his insurance is not accepted by some and others are unable to meet his care needs. Reviewed once again the offer to expand referral area to include [facility] and [facility] to which he declines at this time. CM to follow. Plan: Likely to return to [facility] and work with administration there and [facility] at finding alternative placement. Date Signed: 10/18/2018 12:27 PM Electronically Signed By:Elizabeth Cui RN
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
[2018-10-18] MEDS: PATCH REMOVAL 1 EA PATCH TD SCH (19:39)
[2018-10-18] MEDS: MIDODRINE HCL 5 MG TAB PO PRN (20:07)
[2018-10-19] MEDS: LIDOCAINE 4%/MENTHOL 1% PATCH TD SCH ×3 (09:18→13:11)
[2018-10-19] MEDS: HYOSCYAMINE SULFATE 0.125 MG TAB PO SCH ×3 (09:18→19:22)
[2018-10-19] MEDS: POLYETHYLENE GLYCOL 3350 17 GM PKT PO SCH (09:19)
[2018-10-19] MEDS: CHOLECALCIFEROL VIT D3 1,000 UNITS TAB PO SCH (09:19)
[2018-10-19] MEDS: MULTIVITAMINS 1 EACH TAB PO SCH (09:19)
[2018-10-19] MEDS: ONDANSETRON DISINTEGRATING 4 MG TAB PO SCH ×3 (09:19→22:06)
[2018-10-19] MEDS: SENNOSIDES/DOCUSATE SODIUM TAB PO SCH ×2 (09:19→20:26)
[2018-10-19] MEDS: FAMOTIDINE 20 MG TAB PO SCH ×2 (09:24→20:25)
[2018-10-19] MEDS: ENOXAPARIN 120 MG/0.8 ML SYR SC SCH ×2 (09:25→20:26)
[2018-10-19] MEDS: HYDROmorphONE/DILAUDID 4 MG TAB PO PRN ×3 (09:28→18:03)
[2018-10-19] MEDS: PROMETHAZINE HCL 25 MG TAB PO PRN ×2 (09:28→18:03)
[2018-10-19] MEDS: fentaNYL 25 MCG PATCH TD SCH (09:32)
[2018-10-19] MEDS: SIMETHICONE 80 MG TAB CHEW PO SCH ×4 (09:38→20:25)
[2018-10-19] MEDS: MBX SOLN 30 ML BOTTLE PO SCH ×2 (10:53→20:24)
[2018-10-19] MEDS: DIAZEPAM 5 MG TAB PO PRN ×3 (10:57→22:06)
--- NOTE | 2018-10-19 14:56 | ASMTCMCOM ---
CM Note CM Note Notes: Per Sarah Lr, the case was closed per Melani. Patient to re-contest and process to begin again. Discharge plan remains to [facility] at this time. CM to follow. Date Signed: 10/19/2018 02:55 PM Electronically Signed By:Elizabeth Cui RN
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
[2018-10-19] MEDS: PATCH REMOVAL 1 EA PATCH TD SCH (20:24)
[2018-10-19] MEDS: MIDODRINE HCL 5 MG TAB PO PRN (21:31)
[2018-10-19] MEDS: PHENAZOPYRIDINE HCL 200 MG TAB PO PRN (23:24)
[2018-10-20] MEDS: HYDROmorphONE/DILAUDID 4 MG TAB PO PRN ×4 (04:30→20:31)
[2018-10-20] MEDS: ONDANSETRON DISINTEGRATING 4 MG TAB PO PRN (04:40)
[2018-10-20] MEDS: FAMOTIDINE 20 MG TAB PO SCH ×2 (08:46→22:42)
[2018-10-20] MEDS: SIMETHICONE 80 MG TAB CHEW PO SCH ×4 (08:47→22:43)
[2018-10-20] MEDS: ENOXAPARIN 120 MG/0.8 ML SYR SC SCH ×2 (08:48→22:42)
[2018-10-20] MEDS: MBX SOLN 30 ML BOTTLE PO SCH ×2 (08:48→22:42)
[2018-10-20] MEDS: ONDANSETRON DISINTEGRATING 4 MG TAB PO SCH ×3 (08:52→22:44)
[2018-10-20] MEDS: PHENAZOPYRIDINE HCL 200 MG TAB PO PRN (09:04)
[2018-10-20] MEDS: DIAZEPAM 5 MG TAB PO PRN ×2 (11:04→18:27)
[2018-10-20] MEDS: MIDODRINE HCL 5 MG TAB PO PRN ×2 (12:30→19:36)
[2018-10-20] MEDS: PROMETHAZINE HCL 25 MG TAB PO PRN ×2 (12:50→20:31)
[2018-10-20] MEDS: CHOLECALCIFEROL VIT D3 1,000 UNITS TAB PO SCH (13:36)
[2018-10-20] MEDS: HYOSCYAMINE SULFATE 0.125 MG TAB PO SCH ×3 (13:37→22:44)
[2018-10-20] MEDS: MULTIVITAMINS 1 EACH TAB PO SCH (13:37)
[2018-10-20] MEDS: SENNOSIDES/DOCUSATE SODIUM TAB PO SCH ×2 (13:37→22:43)
[2018-10-20] MEDS: POLYETHYLENE GLYCOL 3350 17 GM PKT PO SCH (13:37)
--- NOTE | 2018-10-20 16:54 | SOAPPROG ---
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 Pain control-Fentany patch and hydromorphone Valium helping a little Still with some hypotension after eating and pain radiating down l leg and by bladder Return of bowel function - Franck is asking about LTAC options today. He called [facility] who may have a bed next week S: continues to have abdominal pain Taking in very little PO O: General: alert, nad HENT: Normocephalic, pupils equal and round, mucous membranes moist, no scleral icterus. Lungs: No increased work of breathing Skin: warm and dry. incision CDI. +BS. Soft Ostomy with gas in bag. Incisions cdi Psych: mood and affect normal Objective: Plan: 09/13/18 10:49 10/01/18 19:48 10/03/18 07:33 10/07/18 14:33 10/14/18 18:33 10/15/18 09:38 10/15/18 09:47 10/15/18 14:52 10/20/18 16:49 Objective: Vital Signs Temp Pulse Resp BP Pulse Ox 36.6 C 53 L 14 152/86 H 96 10/20/18 16:00 10/20/18 16:00 10/20/18 16:00 10/20/18 16:00 10/20/18 16:00 Laboratory Results 10/18/18 05:30 10/18/18 05:30 10/19/18 10/20/18 10/21/18 05:59 05:59 05:59 Intake Total 240 800 50 Output Total 1975 1800 550 Balance -1735 -1000 -500 PT 14.9 SEC (12.0-15.0) 10/09/18 06:50 INR 1.15 (0.83-1.16) 10/09/18 06:50 ICD10 Worksheet Patient Problems: Problems Problem Status Onset Abdominal pain Acute Nausea Acute Rectal bleeding Acute
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
[2018-10-20] MEDS: PATCH REMOVAL 1 EA PATCH TD SCH (22:43)
[2018-10-21] MEDS: DIAZEPAM 5 MG TAB PO PRN ×4 (01:12→20:27)
[2018-10-21] MEDS: HYDROmorphONE/DILAUDID 4 MG TAB PO PRN ×6 (03:53→22:52)
[2018-10-21] MEDS: MULTIVITAMINS 1 EACH TAB PO SCH (09:06)
[2018-10-21] MEDS: CHOLECALCIFEROL VIT D3 1,000 UNITS TAB PO SCH (09:06)
[2018-10-21] MEDS: HYOSCYAMINE SULFATE 0.125 MG TAB PO SCH ×3 (09:06→20:29)
[2018-10-21] MEDS: SENNOSIDES/DOCUSATE SODIUM TAB PO SCH ×2 (09:07→20:27)
[2018-10-21] MEDS: POLYETHYLENE GLYCOL 3350 17 GM PKT PO SCH (09:07)
[2018-10-21] MEDS: ENOXAPARIN 120 MG/0.8 ML SYR SC SCH ×2 (09:31→20:27)
[2018-10-21] MEDS: SIMETHICONE 80 MG TAB CHEW PO SCH ×4 (09:32→21:31)
[2018-10-21] MEDS: FAMOTIDINE 20 MG TAB PO SCH ×2 (09:32→20:27)
[2018-10-21] MEDS: PROMETHAZINE HCL 25 MG TAB PO PRN ×2 (09:51→21:48)
--- NOTE | 2018-10-21 10:38 | ASMTCMCOM ---
CM Note CM Note Notes: Kep[facility] review still pending. Visited with patient yesterday to inform him review process is still underway and pending results he is likely to be transferred to [facility]. He tells me he has been on the phone with LTAC"s and feels he may quality for placement at one of these facilities. He also stated his mother received a call stating that [facility] refused to take him back. This author informed him that that was highly unlikely. Per Zander at [facility] they have never refused patient. Awaiting final word on case review. Left for Kassie SNELL to update her regarding disposition. Plan: DC to SNF Date Signed: 10/21/2018 10:37 AM Electronically Signed By:Elizabeth Cui RN
[2018-10-21] MEDS: ONDANSETRON DISINTEGRATING 4 MG TAB PO SCH ×3 (12:25→21:44)
[2018-10-21] MEDS: MBX SOLN 30 ML BOTTLE PO SCH ×2 (12:37→21:43)
--- NOTE | 2018-10-21 13:06 | SOAPPROG ---
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 Pain control-Fentany patch and hydromorphone Valium helping a little Still with some hypotension after eating and pain radiating down l leg and by bladder - these symptoms pre-dated surgery Difficult situation as hypotension after eating 1x per day. No acute surgical issues Full return of bowel function - S: No big changes overnight O: General: alert, nad HENT: Normocephalic, pupils equal and round, mucous membranes moist, no scleral icterus. Lungs: No increased work of breathing Skin: warm and dry. incision CDI. +BS. Soft stool in ostomy appliance. Incisions cdi Psych: mood and affect normal Objective: Plan: 09/13/18 10:49 10/01/18 19:48 10/03/18 07:33 10/07/18 14:33 10/14/18 18:33 10/15/18 09:38 10/15/18 09:47 10/15/18 14:52 10/20/18 16:49 10/21/18 13:03 Objective: Vital Signs Temp Pulse Resp BP Pulse Ox 36.7 C 73 16 93/57 L 93 10/21/18 12:03 10/21/18 12:03 10/21/18 12:03 10/21/18 12:03 10/21/18 12:03 Laboratory Results 10/18/18 05:30 10/18/18 05:30 10/20/18 10/21/18 10/22/18 05:59 05:59 05:59 Intake Total 800 1100 Output Total 1800 2500 Balance -1000 -1400 PT 14.9 SEC (12.0-15.0) 10/09/18 06:50 INR 1.15 (0.83-1.16) 10/09/18 06:50 ICD10 Worksheet Patient Problems: Problems Problem Status Onset Abdominal pain Acute Nausea Acute Rectal bleeding Acute
[2018-10-21] MEDS: MIDODRINE HCL 5 MG TAB PO PRN (15:09)
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
[2018-10-21] MEDS: PATCH REMOVAL 1 EA PATCH TD SCH (21:45)
[2018-10-22] MEDS: HYDROmorphONE/DILAUDID 4 MG TAB PO PRN ×4 (01:52→20:53)
[2018-10-22] MEDS: MIDODRINE HCL 5 MG TAB PO PRN ×2 (05:09→19:04)
[2018-10-22] MEDS ORDERED: NS 500 ML IV ONE ×2 (05:16→23:43)
[2018-10-22] MEDS: ONDANSETRON DISINTEGRATING 4 MG TAB PO PRN (05:35)
[2018-10-22] MEDS: ENOXAPARIN 120 MG/0.8 ML SYR SC SCH ×2 (08:10→20:50)
[2018-10-22] MEDS: fentaNYL 25 MCG PATCH TD SCH (08:10)
[2018-10-22] MEDS: FAMOTIDINE 20 MG TAB PO SCH ×2 (08:12→20:50)
[2018-10-22] MEDS: CHOLECALCIFEROL VIT D3 1,000 UNITS TAB PO SCH (08:12)
[2018-10-22] MEDS: PHENAZOPYRIDINE HCL 200 MG TAB PO PRN (08:20)
[2018-10-22] MEDS: ONDANSETRON DISINTEGRATING 4 MG TAB PO SCH ×3 (08:26→22:13)
[2018-10-22] MEDS: MULTIVITAMINS 1 EACH TAB PO SCH (08:26)
[2018-10-22] MEDS: LIDOCAINE 4%/MENTHOL 1% PATCH TD SCH (08:26)
[2018-10-22] MEDS: MBX SOLN 30 ML BOTTLE PO SCH ×3 (08:26→22:13)
[2018-10-22] MEDS: SENNOSIDES/DOCUSATE SODIUM TAB PO SCH ×2 (08:27→20:50)
[2018-10-22] MEDS: HYOSCYAMINE SULFATE 0.125 MG TAB PO SCH ×3 (08:27→15:09)
[2018-10-22] MEDS: POLYETHYLENE GLYCOL 3350 17 GM PKT PO SCH (08:27)
[2018-10-22] MEDS: PATCH REMOVAL 1 EA PATCH TD SCH (08:27)
[2018-10-22] MEDS: SIMETHICONE 80 MG TAB CHEW PO SCH ×4 (08:27→20:50)
[2018-10-22] MEDS: DIAZEPAM 5 MG TAB PO PRN ×3 (10:15→19:04)
--- NOTE | 2018-10-22 13:44 | ASMTCMCOM ---
CM Note CM Note Notes: Spoke with Franck in the presence of patient rep., about referrals to [facility]. [facility] and [facility] facilities have accepted Franck. Approximately 50 of the 121 referrals have come back as denials. Franck asked that a call go out to Sherin Abraham regarding reconsideration; Mamie Varela, porter sample case, will call in the room with Franck so he will be able to hear the conversation and understand fully. Franck relayed he would be willing to consider [facility] if certain objections were overcome, such as meds on time, turning him q2hrs, call lights working and answered. I preposed an agreement signed by the facility that covers his concerns. He stated he liked the people at . Received a call from the [facility] Medicaid [place]. She is working on assisting with services and out patient case management. Will hear from her soon. Apparently, his Medicaid is still coming up as [facility], not [facility]. This is easily fixed and it needs to be in order for case managemen to follow him. Patient is discharged again. He will, again, appeal his discharge, to "buy him some time" (quoted from this mornings meeting with Franck and Caryn Aleman. Date Signed: 10/22/2018 01:43 PM Electronically Signed By:Marixa Jones RN
--- NOTE | 2018-10-22 14:34 | ASMTCMCOM ---
CM Note CM Note Notes: This note is an addendum to Marixa Jones's note from earlier today. I called Ev, clinical liasion for [facility] (which includes Sherin Abraham), and together we spoke w Franck about their decision to deny his admission (they are not able to meet his needs clinically). He verbalized understanding. Marixa Jones was also present and asked Franck's permission to stop sending referrals and following up with facilities d/t the fact that he has been declined almost unanimously. He gave us permission to stop this process. Franck says that he and his girlfriend Ham are going to explore a few more housing options, but that he realizes that returning to [facility] might be the only option for him right now. Marixa Jones will work w Franck to draw up a contract that both and and the facility can agree upon to improve his care/experience there. As mentioned, Franck was discharged today but has appealed this with [facility]/Medicare. Case Management will continue to follow. Date Signed: 10/22/2018 02:34 PM Electronically Signed By:Mamie Varela RN
--- NOTE | 2018-10-22 15:30 | ASMTCMCOM ---
CM Note CM Note Notes: Franck has asked me to stop searching for care home homes, canteen operator care facilities. He agrees to go to [facility]. Mamie Varela, manager perioperative, witness this agreement. [facility] is prepared to accept him on discharge. This process description writer will be writing up an agreement that will be signed by Isis Garcia, Attending Psychiatrist at [facility] that will include things he would like to see happen during his stay there. This document will be signed by Jose tomorrow morning. Once again, Franck let me know that he did appeal his discharge in order to 'buy time'. This process description writer let him know that we will be sending records to [facility]. Marixa Jones RN Director of Case Management Date Signed: 10/22/2018 03:29 PM Electronically Signed By:Marixa Jones RN
[2018-10-22] MEDS: PROMETHAZINE HCL 25 MG TAB PO PRN (20:53)
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
[2018-10-22] MEDS ORDERED: HYDROmorphONE/DILAUDID 1 MG/ML INJ IVP ONE (21:32)
[2018-10-23] MEDS: HYDROmorphONE/DILAUDID 4 MG TAB PO PRN ×3 (00:28→12:54)
[2018-10-23] MEDS: DIAZEPAM 5 MG TAB PO PRN ×3 (04:25→15:36)
[2018-10-23] MEDS: ALTEPLASE 2 MG VIAL IVP PRN (04:25)
[2018-10-23] MEDS: PROMETHAZINE HCL 25 MG TAB PO PRN ×2 (04:59→15:32)
[2018-10-23] MEDS: MBX SOLN 30 ML BOTTLE PO SCH ×2 (05:16→12:17)
[2018-10-23] MEDS ORDERED: SIMETHICONE 80 MG TAB CHEW PO PRN (05:17)
--- NOTE | 2018-10-23 08:12 | SOAPPROG ---
SOAP Progress Note Assessment/Plan: Assessment/Plan: 43 yo with C5 paraplegia c colostomy and diversion colitis s/p da ashely excision of rectal stump with transanal excision 10/09. Pain control-Fentanyl patch and hydromorphone. Valium helping a little Still with some hypotension after eating and pain radiating down l leg and by bladder - these symptoms pre-dated surgery Difficult situation as hypotension after eating 1x per day. No acute surgical issues Full return of bowel function NO ENEMAS x [address] Ruiz as outpatient Seen with Dr. Fragoso S: Feels mucous building up in rectum again O: General: alert, nad HENT: Normocephalic, pupils equal and round, mucous membranes moist, no scleral icterus. Lungs: No increased work of breathing Skin: warm and dry. incision CDI. +BS. Soft stool in ostomy appliance. Incisions cdi. Rectal exam with minimal mucous Psych: mood and affect normal Objective: Vital Signs Temp Pulse Resp BP Pulse Ox 36.3 C 60 14 101/66 96 10/23/18 07:58 10/23/18 07:58 10/23/18 07:58 10/23/18 07:58 10/23/18 07:58 Laboratory Results 10/18/18 05:30 10/18/18 05:30 10/22/18 10/23/18 10/24/18 05:59 05:59 05:59 Intake Total 1600 1250 Output Total 3100 1100 Balance -1500 150 PT 14.9 SEC (12.0-15.0) 10/09/18 06:50 INR 1.15 (0.83-1.16) 10/09/18 06:50 ICD10 Worksheet Patient Problems: Problems Problem Status Onset Abdominal pain Acute Nausea Acute Rectal bleeding Acute
[2018-10-23] MEDS: FAMOTIDINE 20 MG TAB PO SCH (09:49)
[2018-10-23 09:50] LABS: PLATELET COUNT 253 10^3/uL (150-400)
[2018-10-23] MEDS: ONDANSETRON DISINTEGRATING 4 MG TAB PO SCH (09:50)
[2018-10-23] MEDS: ENOXAPARIN 120 MG/0.8 ML SYR SC SCH (09:51)
[2018-10-23] MEDS: SIMETHICONE 80 MG TAB CHEW PO SCH ×2 (09:51→12:55)
[2018-10-23] MEDS: MULTIVITAMINS 1 EACH TAB PO SCH (09:58)
[2018-10-23] MEDS: HYOSCYAMINE SULFATE 0.125 MG TAB PO SCH (09:58)
[2018-10-23] MEDS: POLYETHYLENE GLYCOL 3350 17 GM PKT PO SCH (09:59)
[2018-10-23] MEDS: SENNOSIDES/DOCUSATE SODIUM TAB PO SCH (10:00)
[2018-10-23] MEDS: LIDOCAINE 4%/MENTHOL 1% PATCH TD SCH (10:01)
[2018-10-23] MEDS: CHOLECALCIFEROL VIT D3 1,000 UNITS TAB PO SCH (10:02)
--- NOTE | 2018-10-23 12:20 | PDIAF ---
- Diagnosis Diagnosis: paraplegia/dysautonomia/diversion colitis/chronic pain syndr Code Status: Full Code - Medication Management Additional Medication Instructions: He should not have any enemas or suppositories until November 05 due to surgery. After that, he may use proctofoam or mesalamine, as well as short chain fatty acid enemas which have helped somewhat in the past. Discharge Medications: electronically signed and located in the Home Medication List. - Orders Services needed: Registered Nurse, Certified Cleat Layer, Physical Therapy, Occupational Therapy Diet Recommendation: no restrictions on diet Diet Texture: Regular Texture Diet Wound Care Instructions: He has a suprapubic catheter for neurogenic bladder and a colostomy, needs standard routine ostomy care and change his urine catheter every 2 weeks. Avoid suppositories and enemas until november 05 due to recent surgery. He requires aggressive standard prevention measures for pressure injury due to paraplegia Activity/Weight Bearing Restrictions: he is paraplegic at c5, can use his L hand /arm Additional Instructions: He should not have any enemas or suppositories until November 05 due to surgery. After that, he may use proctofoam or mesalamine, as well as short chain fatty acid enemas which have helped somewhat in the past. For any questions regarding his recent surgery contact Dr Genny Fragoso [phone] - Follow Up Care Current Providers and Referrals: [facility] [Other] - As per Instructions Genny Fragoso MD [Medical Doctor] - follow up in 1 week
--- NOTE | 2018-10-23 12:38 | PDDCSUM ---
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 He did have IVC filter to come off of anticoagulation for surgery * Chronic C5 paraplegia from remote injury * Chronic neurogenic bladder with suprapubic catheter in place * Chronic normocytic anemia * Hypoalbuminemia, moderate protein calorie malnutrition CONSULTANTS: Dr. Genny Bourgeois PROCEDURES: Fiberoptic endoscopy of his rectal stump showing inflammatory changes consistent with either diversion colitis or ulcerative colitis Surgical proctectomy Placement and subsequent removal of a inferior vena cava filter Transfusion of 1 unit packed red blood cells HOSPITAL COURSE SUMMARY: Mr. Claros is a 43-year-old man who has numerous chronic medical issues related to both ulcerative colitis and a cervical spine injury. He has a paraplegia at C5 with retained use of his left arm and hand which has been present for several years. He is bed and wheelchair-bound related to this. He has quite a bit of chronic pain related to this and has been on chronic narcotic medicines coming into the hospital here. He has a neurogenic bladder and has a suprapubic catheter in place. He also has a history of ulcerative colitis and has a partial colectomy with a colostomy and rectal stump. The patient was transferred from [facility] to this facility at the date of admission because of worsening pain. At the time of her admission here the patient's belief was that the uncontrolled pain was due to changes in his pain medications at the nursing facility. However on examining him there was quite a bit of pain that seems related to his bowel, and some pain that was related to his rectal stump with some drainage of mucus from the rectal stump. There was also intermittent bladder spasm type pain as well. In reviewing past treatments for his pain his history was somewhat difficult to interpret as he told his story, however he admitted to having some improvement with short chain fatty acid enemas he had used in the past, improvement with use of a TENS unit, and sometimes improvement with medications typically use for ulcerative colitis. At the time of this admission he did not have skin joint mucosal or eye symptoms to suggest extra colonic symptoms of his inflammatory bowel disease. He did note that eating commonly aggravated his symptoms and he has trouble eating. He was seen by Gastroenterology consultants who felt that he may have inflammatory bowel disease acting up. Endoscopic evaluation showed inflammation of the rectal stump and the opinion from our surgery and gastroenterology consultants was that he most likely had a diversion colitis. It had been recommended to the patient that he may benefit from surgery and we talked to him about going to his colonic surgeon at [facility]. The patient did not wish to have surgery initially. He wished to try short chain fatty acid enemas and so we are able to order some of these from a compounding pharmacy [facility] though it took several days to get them here. The patient did use these for a couple of weeks daily but they really did not seem to make an improvement in his pain at all. There was concern about a possible bladder infection although with a suprapubic catheter and without fevers it was never really certain that this was present. Nonetheless he was treated with some antibiotics to see if this would help and it did not improve his bladder symptoms or any other symptoms. He received Proctofoam enemas and other topical treatments with little benefit here. In terms of analgesics use we have increased his narcotic dose considerably compared to the doses he was receiving at [facility] prior to coming here. These did not really seem to be helping very well and we did not believe that further increases in narcotic dose would benefit him and in fact would more likely complicate or interfere with successful treatment of his bowel and bladder symptoms. Notably the patient had been on anticoagulation because of a recent DVT prior to this admission. He came off of the anticoagulant and had IVC filter placed for his surgery. Upon removal of the IVC filter there was some bleeding and he was given 1 unit of red packed red blood cells though did not really have hemodynamic instability related to the bleeding per se. Eventually with further discussion the patient and surgery team agreed to doing a proctectomy which was done here on October 09. There have been no complications of the surgery although at this time in his recovery stage he is still having significant amount of bowel and bladder pain. Reviewing his pain at this time it is clear that his pain is remarkably affected by eating, and in that he very consistently at a certain point in time after eating food or drinking any liquid will get colic of the bowel as well as bladder spasm. In addition he has significant fluctuations of blood pressure at the same time. All of this is highly suggestive of likely autonomic instability that is aggravated by eating. It is likely caused by his spine injury. He has had some attention to this in the past from other physicians but as best I can tell he has never really had and effective management plan put into place. He says he did talk to a urologist at 1 time he was interested in trying Botox injections but the did not get to this. We did try some anti spasmodic medicines here although I do not think we had an adequate trial of these medicines to see if they would work in the patient was not willing to try more than 1 dose of these medicines here. I reviewed his case with doctors Kiko Randhawa and Brittney Kincaid of Neurosurgery. They felt that due to the high level of his cord lesion and the fact that his symptoms are low visceral, a rhizotomy would not be helpful. Dr. Kincaid did not feel that an implanted nerve stimulator would likely be helpful. However she did contact Dr. Nereida Ruiz at her pain management clinic, and they discussed the possibility of attempting and external stimulator with internal leads to see if this would help. Dr. Thornton and felt it was probably unlikely but she agreed that it would be reasonable to assess the patient in her clinic and consider a trial if she thought on that evaluation it might be helpful. Dr. Kincaid offered that if an external stimulator was helpful that in implanted stimulator might also be helpful and she could do that subsequently. She also offered that considering a bladder stimulator with a urologist might help at least the bladder symptoms if a spine stimulator was unhelpful. I did review all of these discussions in detail with the patient and he is very interested in visiting Dr. Ruiz. At this time I have placed a call to Dr. Ruiz's office to talk to her in more detail about this patient's information and situation so that she is informed for his visit. PENDING TEST RESULTS: None FOLLOW-UP PLAN: At this time the patient is discharged from hospital to [facility] where he has been staying previously, and he will be seen by the medical staff and nursing staff at [facility]. He is referred to Dr. Nereida Ruiz at her pain management clinic for assessment as discussed above and will make an appointment to see her. Greater than 35 minutes bedside and care coordination time today
[2018-10-23] MEDS: MIDODRINE HCL 5 MG TAB PO PRN (13:31)
--- NOTE | 2018-10-23 13:53 | ASMTLACE ---
LACE Length of stay for Answers: 14 days or more current admission Acuity / Level of Answers: Yes Care: Did the patient have an inpatient admission? Comorbidities - select Answers: Opioid dependence all that apply / Chronic pain Other Notes: Quadriplegic; Ulcerativ e colitis # of Emergency department Answers: 3-4 visits in the last 6 months Score: 18 Date Signed: 10/23/2018 01:52 PM Electronically Signed By:Angelia Peralta RN
--- NOTE | 2018-10-23 14:01 | ASMTCMCOM ---
CM Note CM Note Notes: Received notification from [employer], patient has lost the appeal and needs to d/c. Patient will return to [facility] today. A contract has been signed by Marixa Jones and backup administrator at [facility], patient is in agreement to d/c to [facility] today. All orders sent to [facility], transport arranged by with a pick-up of 3 p.m. Nurse to call report. Date Signed: 10/23/2018 02:00 PM Electronically Signed By:Aneglia Peralta RN
[2018-10-23 14:28] VITALS: BP 99/69
[2018-10-23] MEDS: PHENAZOPYRIDINE HCL 200 MG TAB PO PRN (15:32)
[2018-10-25] MEDS ORDERED: fentaNYL 25 MCG PATCH TD SCH (09:00)
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
== END 2018-10-23 15:52 | DRG 330 ==
LOC: EDUNIT# → F3N 09-11 02:52 → OBSVTOIN 09-11 17:54 → F3N 09-13 15:20 → F1N 09-15 16:48
PROVIDERS: ADMIT Student in an Organized Health Care Education/Training Program; ATTEND Student in an Organized Health Care Education/Training Program
PROC: 02HV33Z Insertion of Infusion Device into Superior Vena Cava, Percutaneous Approach (ICD-10-PCS; 2018-09-14)
PROC: 0DBN8ZX Excision of Sigmoid Colon, Via Natural or Artificial Opening Endoscopic, Diagnostic (ICD-10-PCS; 2018-09-26)
PROC: 0DBP8ZX Excision of Rectum, Via Natural or Artificial Opening Endoscopic, Diagnostic (ICD-10-PCS; 2018-09-26)
PROC: 06H00DZ Insertion of Intraluminal Device into Inferior Vena Cava, Open Approach (ICD-10-PCS; 2018-10-05)
PROC: 0DBN4ZZ Excision of Sigmoid Colon, Percutaneous Endoscopic Approach (ICD-10-PCS; principal; 2018-10-09 12:00)
PROC: 0DBP4ZZ Excision of Rectum, Percutaneous Endoscopic Approach (ICD-10-PCS; principal; 2018-10-09 12:00)
PROC: 8E0W4CZ Robotic Assisted Procedure of Trunk Region, Percutaneous Endoscopic Approach (ICD-10-PCS; principal; 2018-10-09 12:00)
PROC: 30233N1 Transfusion of Nonautologous Red Blood Cells into Peripheral Vein, Percutaneous Approach (ICD-10-PCS; 2018-10-16)
DX: K52.89 Other specified noninfective gastroenteritis and colitis (principal); D62 Acute posthemorrhagic anemia; K56.7 Ileus, unspecified; E44.0 Moderate protein-calorie malnutrition; G82.22 Paraplegia, incomplete; S14.105S Unspecified injury at C5 level of cervical spinal cord, sequela; W34.00XS Accidental discharge from unspecified firearms or gun, sequela; G89.29 Other chronic pain; F11.20 Opioid dependence, uncomplicated; N31.9 Neuromuscular dysfunction of bladder, unspecified; R33.8 Other retention of urine; K31.7 Polyp of stomach and duodenum; K51.90 Ulcerative colitis, unspecified, without complications; Z79.01 Long term (current) use of anticoagulants; Z96.0 Presence of urogenital implants; Z86.718 Personal history of other venous thrombosis and embolism; Z99.3 Dependence on wheelchair; Z93.3 Colostomy status; Z74.01 Bed confinement status
CPT/HCPCS: 85520-90; 96374; C1751; C1769; C1773; C1894; J0696; J1170; J1630; J1644; J1650; J1885; J2001; J2060; J2175; J2250; J2310; J2405; J2550; J2704; J2997; J3010; P9016; Q9967

== ENCOUNTER 2018-10-23 23:31 | Emergency (ER) | payer OTHER, MEDICAID | END 2018-10-24 07:33 | disposition home or self-care (01) ==

== ENCOUNTER 2018-10-25 21:39 | Observation (INO) | payer OTHER, MEDICAID | END 2018-10-27 15:45 | LOC: F3E 10-26 00:37 ==

== ENCOUNTER 2018-11-18 03:12 | Emergency (ER) | payer OTHER, MEDICAID ==
[2018-11-18] MEDS ORDERED: NS 1,000 ML IV ONE (03:22)
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
[2018-11-18 03:49] LABS: PLATELET COUNT 298 10^3/uL (150-400)
[2018-11-18 03:57] LABS: INR 1.16 (0.83-1.16); PROTIME(PATIENT) 14.3 SEC (12.0-15.0)
[2018-11-18] MEDS ORDERED: IOPAMIDOL (ISOVUE-300) 100 ML BTL ONE (04:16)
[2018-11-18] MEDS ORDERED: ONDANSETRON 4 MG/2 ML VIAL IVP ONE (04:23)
[2018-11-18] MEDS ORDERED: fentaNYL 100 MCG/2 ML INJ IVP ONE (05:00)
[2018-11-18] MEDS ORDERED: NITROFURANTOIN MACROBID 100 MG CAP PO ONE (05:32)
[2018-11-18] MEDS ORDERED: ONDANSETRON DISINTEGRATING 4 MG TAB PO ONE (05:35)
[2018-11-18] MEDS ORDERED: ONDANSETRON DISINTEGRATING 4 MG TAB ONE (05:36)
[2018-11-18] MEDS ORDERED: MAG HYDROX/AL HYDROX/SIMETH 30 ML UDCUP PO ONE (06:45)
[2018-11-18] MEDS ORDERED: LIDOCAINE 2% VISCOUS 15 ML UDCUP PO ONE (06:46)
[2018-11-18 07:02] VITALS: BP 100/70
== END 2018-11-18 07:15 | disposition home or self-care (01) ==
LOC: EDUNIT#
DX: R10.84 Generalized abdominal pain (principal); G89.29 Other chronic pain; E86.9 Volume depletion, unspecified; G82.22 Paraplegia, incomplete; F11.20 Opioid dependence, uncomplicated
CPT/HCPCS: 74177; 96361; 96374; 96375; 99285; J2405; J3010; Q9967

== ENCOUNTER 2018-11-25 11:04 | Emergency (ER) | payer OTHER, MEDICAID ==
[2018-11-25] MEDS ORDERED: PROCTOFOAM HC 10 GM CAN PR ONE (11:30)
[2018-11-25] MEDS ORDERED: LIDOCAINE 2% JELLY 6 ML TOPICAL SYR TP ONE (11:30)
[2018-11-25] MEDS ORDERED: HYDROCORTISONE 100 MG/60 ML ENEMA BOTTLE PR ONE (11:30)
[2018-11-25] MEDS ORDERED: PROMETHAZINE HCL 25 MG TAB PO ONE (11:50)
[2018-11-25] MEDS ORDERED: KETAMINE 500 MG/10 ML VIAL NASAL ONE (12:02)
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
[2018-11-25 14:32] VITALS: BP 118/76
== END 2018-11-25 14:32 | disposition home or self-care (01) ==
LOC: EDUNIT#
DX: K62.89 Other specified diseases of anus and rectum (principal); R10.9 Unspecified abdominal pain; G89.29 Other chronic pain; G82.20 Paraplegia, unspecified; K21.9 Gastro-esophageal reflux disease without esophagitis; Z87.891 Personal history of nicotine dependence

== ENCOUNTER 2018-12-02 11:56 | Emergency (ER) | payer OTHER, MEDICAID ==
--- NOTE | 2018-12-02 12:10 | EDPHY ---
H & P Time Seen by Provider: 12/02/18 12:09 HPI/ROS: Chief complaint. Colitis HPI. Patient is a 43-year-old male who is an incomplete quadriplegic with recurrent colitis. He saw his surgeon Dr. Gatica in today who removed apparently of approximately 50 mL of purulent material from his rectum. After the exam and procedure the patient has rectal pain. Dr. Gatica in called and asked if we would treat the patient's pain. She does not wish any lab work or imaging studies. Patient also has a suprapubic Cruz catheter and wonders if it is draining. No fever. Some nausea. ROS 10 systems were reviewed and negative with the exception of the elements mentioned in the history of present illness Past Medical/Surgical History: Paraplegic, GERD, ulcerative colitis, congenital cardiac malformation with repair, suprapubic Cruz, bowel resection September 2018 with colostomy Social History: Single, nonsmoker, no alcohol Smoking Status: Never smoked Physical Exam: General Appearance: Alert well-developed male mild distress vital signs are stable. Afebrile Eyes: Pupils equal and round no pallor or injection. ENT, Mouth: Mucous membranes are moist. Respiratory: There are no retractions, lungs are clear to auscultation. Cardiovascular: Regular rate and rhythm. Gastrointestinal: Abdomen is soft and nontender, no masses, bowel sounds normal. Cruz catheter is draining. Rectal exam is deferred as he just had examined procedure by his surgeon Neurological: Awake and alert, sensory and motor exams grossly normal. Skin: Warm and dry, no rashes. Musculoskeletal: Neck is supple nontender. Extremities symmetrical, full range of motion. Psychiatric: Patient is oriented X 3, there is no agitation. Constitutional: Initial Vital Signs Temperature (C) 36.1 C 12/02/18 11:58 Heart Rate 63 12/02/18 11:58 Respiratory Rate 16 12/02/18 11:58 Blood Pressure 119/78 12/02/18 11:58 O2 Sat (%) 96 12/02/18 11:58 O2 Delivery Mode Room Air Allergies/Adverse Reactions: quetiapine fumarate [From Seroquel] Allergy (Severe, Verified 11/18/18 03:16) seizure propofol Allergy (Mild, Verified 11/18/18 03:16) BRADYCARDIA acetylcysteine [From Mucomyst] Allergy (Verified 11/18/18 03:16) CHILLS citalopram [From Celexa] Allergy (Verified 11/18/18 03:16) BAD THOUGHTS tramadol Allergy (Verified 11/18/18 03:16) NAUSEA AND DIZZY Home Medications: Medication Instructions Recorded Diazepam [Valium 10 MG (*)] 10 mg PO Q6 PRN 09/11/18 Lactulose 20 gm PO DAILY PRN 09/11/18 Acetaminophen [Tylenol 325mg (*)] 650 mg PO Q4HRS PRN tab 10/18/18 Enoxaparin [Lovenox 120 MG (*)] 120 mg SC BID syr 10/18/18 HYDROmorphone HCL [Dilaudid 4 mg 4 mg PO Q3 PRN tab 10/18/18 (*)] Simethicone [Mylicon] 80 mg PO PCHS tab.chew 10/18/18 fentaNYL [Duragesic 25 MCG Patch 25 mcg TD Q72H patch 10/22/18 (*)] Lidocaine 4%/Menthol 1% [Icy Hot 1 patch TD HS 10/26/18 Lidocaine/Menthol 4%/1% Patch (*)] Lidocaine [Rectasmoothe] 1 rashmi RC Q8HRS PRN 10/26/18 Midodrine HCl 2.5 mg PO DAILY PRN 10/26/18 Ondansetron HCl [Zofran] 4 mg PO Q4HRS PRN 10/26/18 Phenazopyridine HCl [Pyridium] 200 mg PO Q4HRS PRN 10/26/18 Medical Decision Making Procedures: IV normal saline fentanyl 100 mcg, Phenergan 25 mg IV ED Course/Re-evaluation: Re-evaluation patient is more comfortable. Pain is not quite well controlled and he is given further 50 mcg of fentanyl Patient and I discussed treatment plan including criteria for return importance of follow-up and further evaluation. He has an appointment with pain control physician tomorrow. Patient expresses understanding and agreement Differential Diagnosis: Acute on chronic colitis. No evidence of problems with Cruz catheter - Data Points Medications Given: Discontinued Medications Fentanyl (Sublimaze) 100 mcg IVP EDNOW ONE Stop: 12/02/18 12:19 Last Admin: 12/02/18 12:26 Dose: 100 mcg Fentanyl (Sublimaze) 50 mcg IVP EDNOW ONE Stop: 12/02/18 13:38 Last Admin: 12/02/18 13:43 Dose: 50 mcg Promethazine HCl (Phenergan) 25 mg IVP EDNOW ONE Stop: 12/02/18 12:19 Last Admin: 12/02/18 12:26 Dose: 25 mg Departure - Departure Disposition: Home, Routine, Self-Care Clinical Impression: Rectal pain, Colitis Condition: Good Instructions: Rectal Pain (ED) Additional Instructions: Continue regular medications. Keep your follow-up appointment with Dr. Ruiz tomorrow Return for worsening pain, fever Follow-up with Dr. Fragoso as she has explained to you Referrals: LISBET MURRAY [Other] - As per Instructions Nereida Ruiz MD [Medical Doctor] - 1 day without fail Genny Fragoso MD [Medical Doctor] - As per Instructions
[2018-12-02] MEDS ORDERED: PROMETHAZINE HCL 25 MG/ML INJ IVP ONE (12:18)
[2018-12-02] MEDS ORDERED: fentaNYL 100 MCG/2 ML INJ IVP ONE ×3 (12:18→14:36)
[2018-12-02] MEDS ORDERED: LIDOCAINE 2% VISCOUS 15 ML UDCUP PO ONE (14:01)
[2018-12-02] MEDS ORDERED: PHENAZOPYRIDINE HCL 200 MG TAB PO ONE (14:01)
[2018-12-02] MEDS ORDERED: MAG HYDROX/AL HYDROX/SIMETH 30 ML UDCUP PO ONE (14:01)
[2018-12-02 14:42] VITALS: BP 86/53
== END 2018-12-02 14:53 | disposition home or self-care (01) ==
DX: K62.89 Other specified diseases of anus and rectum (principal); K51.90 Ulcerative colitis, unspecified, without complications; G82.22 Paraplegia, incomplete; K21.9 Gastro-esophageal reflux disease without esophagitis; Z96.0 Presence of urogenital implants; Z90.49 Acquired absence of other specified parts of digestive tract; Z93.3 Colostomy status
CPT/HCPCS: 96374; 96375; 96376; 99284; J2550; J3010

== ENCOUNTER 2018-12-21 15:06 | Observation (INO) | payer OTHER, MEDICAID ==
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
[2018-12-21] MEDS ORDERED: PROMETHAZINE HCL 25 MG TAB PO ONE (15:18)
[2018-12-21] MEDS ORDERED: fentaNYL 100 MCG/2 ML INJ NASAL ONE (16:11)
[2018-12-21] MEDS ORDERED: ONDANSETRON DISINTEGRATING 4 MG TAB PO ONE (16:11)
[2018-12-21] MEDS ORDERED: IOPAMIDOL (ISOVUE 370) 100 ML BTL IV ONE (17:07)
[2018-12-21 17:58] LABS: PLATELET COUNT 352 10^3/uL (150-400)
[2018-12-21] MEDS ORDERED: HYDROmorphONE/DILAUDID 2 MG/ML INJ IVP ONE ×2 (18:09→21:27)
[2018-12-21] MEDS ORDERED: PROMETHAZINE HCL 25 MG/ML INJ IVP ONE (18:09)
[2018-12-21] MEDS ORDERED: NS 1,000 ML IV ONE (19:34)
[2018-12-21 19:39] LABS: INR 1.21 (0.83-1.16); PROTIME(PATIENT) 14.8 SEC (12.0-15.0)
[2018-12-21] MEDS ORDERED: ALTEPLASE 2 MG VIAL IVP PRN (20:19)
[2018-12-21] MEDS ORDERED: HYDROmorphONE/DILAUDID 1 MG/ML INJ IVP PRN (21:14)
[2018-12-21] MEDS ORDERED: HYDROCODONE/APAP 5/325 TAB PO PRN (21:14)
[2018-12-21] MEDS ORDERED: oxyCODONE IR 5 MG TAB PO PRN (21:14)
[2018-12-21] MEDS ORDERED: ONDANSETRON 4 MG/2 ML VIAL IVP PRN (21:14)
[2018-12-21] MEDS ORDERED: ACETAMINOPHEN 325 MG TAB PO PRN (21:14)
[2018-12-21] MEDS ORDERED: LORazepam 2 MG/ML INJ IVP PRN (21:14)
[2018-12-21] MEDS ORDERED: LORazepam 0.5 MG TAB PO PRN (21:14)
[2018-12-21] MEDS ORDERED: ONDANSETRON DISINTEGRATING 4 MG TAB PO PRN ×2 (21:14→22:19)
[2018-12-21] MEDS ORDERED: HYDROmorphONE/DILAUDID 1 MG/ML INJ ONE (21:25)
[2018-12-21] MEDS ORDERED: HYDROmorphONE/DILAUDID 2 MG/ML INJ ONE (21:26)
[2018-12-21] MEDS ORDERED: SIMETHICONE 80 MG TAB CHEW PO PRN (22:19)
[2018-12-21] MEDS ORDERED: PHENAZOPYRIDINE HCL 200 MG TAB PO PRN (22:19)
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
[2018-12-21] MEDS: morphINE 10 MG/0.5 ML UDSYR PO PRN (23:34)
[2018-12-21] MEDS: ENOXAPARIN 120 MG/0.8 ML SYR SC SCH (23:34)
[2018-12-21] MEDS: CARBAMIDE PEROXIDE 15 ML OTIC.BTL EACHEAR SCH (23:34)
[2018-12-21] MEDS: FAMOTIDINE 20 MG TAB PO SCH (23:34)
[2018-12-21] MEDS: NS 1,000 ML IV SCH (23:37)
[2018-12-22] MEDS: LACTULOSE 20 GM/30 ML UDCUP PO PRN (05:01)
[2018-12-22] MEDS: morphINE 10 MG/0.5 ML UDSYR PO PRN ×3 (05:01→13:22)
[2018-12-22 05:55] LABS: PLATELET COUNT 244 10^3/uL (150-400)
[2018-12-22] MEDS ORDERED: MIDODRINE HCL 5 MG TAB PO PRN (08:00)
[2018-12-22] MEDS: PROMETHAZINE HCL 25 MG/ML INJ IVP PRN ×2 (08:42→16:04)
[2018-12-22] MEDS: fentaNYL 25 MCG PATCH TD SCH (08:43)
[2018-12-22] MEDS: ENOXAPARIN 120 MG/0.8 ML SYR SC SCH (08:45)
[2018-12-22] MEDS: FAMOTIDINE 20 MG TAB PO SCH ×2 (08:45→20:56)
[2018-12-22] MEDS: SENNOSIDES 1 TAB PO SCH (09:26)
--- NOTE | 2018-12-22 10:21 | WOCRNPDOC ---
WOCRN Advanced Assessment Note - Skin Integrity Problem, Advanced Assess Suprapubic Dressing Type: Dressing Sponge Dressing Description: Clean/Dry, Intact Closure Description: Approximated Integumentary Issue Intervention: Visualized Under Dressing Kailey Wound Tissue: Erythema, Denuded Wound Bed Color: Grampian Wound Bed Constitution: Red/Grampian - Non Granular Tissue Wound Edges: Well Defined Site Measurement - Head-to-Toe Length X Width X Depth (cm): 1.5x1x0.1 Skin Integrity Problem Comment: Patient with indwelling suprapubic catheter. Drainage sponge in place but skin distal to tube with some breakdown present. No drainage currently. Tube of clear zinc provided and may be applied PRN for breakdown. Wound care will not continue to round. Sacrum Pressure Injury Dressing Type: Mepilex Border (sacral) Dressing Description: Clean/Dry, Intact Closure Description: Approximated Exudate Amount: None Integumentary Issue Intervention: Visualized Under Dressing Kailey Wound Tissue: Blanching, Intact Pressure Injury Stage: Stage 4 Pressure Injury Present on Admit: Yes Skin Integrity Problem Comment: Skin currently intact and blanching at the site of old stage 4 pressure injury, closed a "long time ago" with a flap. Continue aggressive offloading measures. Will upgrade patient surface to a P500 as he refuses an Envella at this time. Wound care will not continue to round. Please reconsult PRN if skin condition worsens or area begins to open.
[2018-12-22] MEDS: DIAZEPAM 5 MG TAB PO PRN (10:22)
[2018-12-22] MEDS: NS 1,000 ML IV SCH (10:23)
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
[2018-12-22] MEDS ORDERED: ALTEPLASE 2 MG VIAL IVP PRN ×2 (13:38→15:56)
[2018-12-22] MEDS: CHOLECALCIFEROL VIT D3 1,000 UNITS TAB PO SCH (14:17)
[2018-12-22] MEDS ORDERED: NALOXONE HCL 0.4 MG/ML INJ IVP PRN (15:56)
[2018-12-22] MEDS ORDERED: MEPERIDINE 25 MG/ML SYR IVP PRN (15:56)
[2018-12-22] MEDS ORDERED: MIDAZOLAM 2 MG/2 ML VIAL IVP PRN (15:56)
[2018-12-22] MEDS ORDERED: fentaNYL 100 MCG/2 ML INJ IVP PRN (15:56)
[2018-12-22] MEDS ORDERED: HEPARIN 10,000 UNIT/10 ML MDV (1,000 UNIT/ML) IVP PRN (15:56)
[2018-12-22] MEDS ORDERED: FLUMAZENIL 0.5 MG/5 ML MDV IVP PRN (15:56)
[2018-12-22] MEDS ORDERED: NS 1,000 ML IV SCH (16:00)
[2018-12-22] MEDS: CARBAMIDE PEROXIDE 15 ML OTIC.BTL EACHEAR SCH ×2 (16:08→20:56)
--- NOTE | 2018-12-22 16:32 | HOSPPROG ---
Hospitalist Progress Note Assessment/Plan: 43 yo M with PMH of C5 partial paraplegia as well as chronic SPC with chronic pyuria, chronic abdominal/bladder and rectal pain with continuous opiate use, DVT on AC presenting with various migratory complaints. #MRSA bacteremia- cultures quickly became positive for MRSA and strep (not group A or B). ID consulted who feels this could be contaminant given the multiple organisms which would be highly unusual in blood stream infection. No obvious source. Plan to place Picc as patient is extremely hard to find access on, redraw cultures and then give vancomycin. IR was not able to get picc and so now surgery will be placing a tunneled cath. -Plan to place cath -then repeat cultures -then start vancomycin -if patient decompensates, and not able to draw cultures would just start abx. # leg pain: this was his initial presenting complaint, US performed showing resolving clot in the right leg, he is continued on lovenox and has chronic lower extremity edema. Does have possible AV fistula noted on US though unclear this would lead to his presenting sxs. # ? femoral AV fistula: on US and CT there is a question of possible proximal femoral AV fistula, nothing clear by history that could have caused this and query if this is an actual finding as report indicates it is uncertain and this clinically does not quite fit. At this time, will monitor and plan short term repeat US (in the next week) for further evaluation as recommended by radiology. Could consider general surgery consultation alternatively. # pyuria: patient with chronic pyuria in setting of chronic indwelling luo, although at this time UA does appear worse than previously and patient has associated imaging findings concerning for cystitis. Has been started on ctx, urine cultures pending, will continue abx for the time being pending urine culture -urine consistent with infection but patient with chronic suprapubic cath. -change catheter -cont rocephin. # abdominal/rectal pain: these are chronic complaints and at this time no clear etiology for either, has had rectal stump revision and has been followed by Dr. Fragoso as an OP for these issues, if pain not improving consider surgical consultation # chronic pain with continuous opiate use and dependency: continue home regimen , attempt to avoid IV pain medications as this has been an issue in the past on prior hospitalizations # DVT: continue lovenox, followed by hematology, US shows improvement as above # autonomic instability: currently has normal vital signs, continue midodrine # observation status # Patient currently resides at [facility], he has been very reluctant for dc back there.Discussed with CM. will leave obs for now. Subjective: abdominal pain still an issue. tired. Objective: Vital Signs Temp Pulse Resp BP Pulse Ox 36.7 C 75 16 95/59 L 96 12/22/18 08:23 12/22/18 08:23 12/22/18 08:23 12/22/18 08:23 12/22/18 08:23 Laboratory Results 12/22/18 05:07 12/22/18 05:07 12/21/18 12/22/18 12/23/18 05:59 05:59 05:59 Intake Total 1050 Output Total 450 900 Balance 600 -900 PT 14.8 SEC (12.0-15.0) 12/21/18 19:30 INR 1.21 (0.83-1.16) H 12/21/18 19:30 - Physical Exam Constitutional: no apparent distress, appears nourished, not in pain Eyes: PERRL, anicteric sclera, EOMI Ears, Nose, Mouth, Throat: moist mucous membranes, hearing normal, ears appear normal, no oral mucosal ulcers Cardiovascular: regular rate and rhythym, no murmur, rub, or gallop Respiratory: no respiratory distress, no rales or rhonchi, clear to auscultation Gastrointestinal: normoactive bowel sounds, soft, non-tender abdomen, no palpable masses Genitourinary: other (some mild crusting around suprapubic site, but no obvious infection. ) Skin: no rashes or abrasions, no fluctuance, no induration Musculoskeletal: other (essentially quadripalegic) Neurologic: AAOx3, sensation intact bilaterally Psychiatric: interacting appropriately, not anxious, not encephalopathic, thought process linear Lymph, Heme, Immunologic: no cervical LAD, no supraclavicular LAD ICD10 Worksheet Patient Problems: Problems Problem Status Onset Abdominal pain Acute Chills Acute Urinary tract infection Acute Chronic flaccid quadriplegia Acute Nausea Acute Proctitis Acute Rectal bleeding Acute
[2018-12-22] MEDS ORDERED: VANCOMYCIN 1.5 GM in NS 250 ML IV SCH (18:00)
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
--- NOTE | 2018-12-22 18:11 | PDHPUP ---
History & Physical Update H&P update statement: This history and physical update is based on an assessment of the patient which was completed after admission or registration (within 24 hours), but prior to the surgery/procedure. Central access for bacteremia. No patent veins in LUE. Conversion to tunneled PICC. H&P update: H&P reviewed & patient examined
--- NOTE | 2018-12-22 18:12 | PDPROPOC ---
Sedation Plan of Care Sedation Plan of Care: vital signs stable, mental status noted, patient educated of risks, benefits, alternatives, patient can tolerate sedation ASA Classification: ASA 3 Planned drugs: fentanyl, midazolam Mallampati Score: Class 3 Mallampati Reference Image: Patient passed 3-3-2 rule?: Yes
[2018-12-22] MEDS ORDERED: MIDAZOLAM 2 MG/2 ML VIAL ONE (18:40)
[2018-12-22] MEDS ORDERED: fentaNYL 100 MCG/2 ML INJ ONE (18:40)
--- NOTE | 2018-12-22 19:16 | PDRADPN ---
Radiology Procedure Note Date of Procedure: 12/22/18 Radiologist: Adonay Long Anesthesia: IV Sedation Pre-op Diagnosis: Bacteremia Post-op Diagnosis: Bacteremia Indication: Bacteremia Procedure: Tunneled PICC Finding(s): Patent right IJ. Occluded Left upper extremity veins. Tip of catheter in proximal right atrium. Inf/Abcess present in the surg proc area at time of surgery?: No
[2018-12-22] MEDS: ENOXAPARIN 100 MG/ML SYR SC SCH (20:55)
[2018-12-22] MEDS: VANCOMYCIN 1.5 GM in NS 250 ML IV SCH (21:25)
[2018-12-23] MEDS: PROMETHAZINE HCL 25 MG TAB PO PRN ×2 (04:22→17:43)
[2018-12-23] MEDS: morphINE 10 MG/0.5 ML UDSYR PO PRN ×5 (04:22→21:57)
[2018-12-23 05:08] LABS: PLATELET COUNT 275 10^3/uL (150-400)
[2018-12-23] MEDS: LACTULOSE 20 GM/30 ML UDCUP PO PRN (07:36)
[2018-12-23] MEDS: DIAZEPAM 5 MG TAB PO PRN (07:38)
[2018-12-23] MEDS: SENNOSIDES 1 TAB PO SCH (07:39)
[2018-12-23] MEDS: FAMOTIDINE 20 MG TAB PO SCH ×2 (07:39→21:09)
[2018-12-23] MEDS: CHOLECALCIFEROL VIT D3 1,000 UNITS TAB PO SCH (07:41)
[2018-12-23] MEDS: ENOXAPARIN 100 MG/ML SYR SC SCH ×2 (08:45→21:09)
[2018-12-23] MEDS: CARBAMIDE PEROXIDE 15 ML OTIC.BTL EACHEAR SCH ×2 (08:50→20:51)
[2018-12-23] MEDS: VANCOMYCIN 1.5 GM in NS 250 ML IV SCH ×2 (09:21→21:08)
--- NOTE | 2018-12-23 11:10 | ASMTCMCOM ---
CM Note CM Note Notes: Spoke with Nidhi from [facility] and sent updated noted per her request. Discharge plan remains return to [facility] when patient is medically clear. CM will follow. Date Signed: 12/23/2018 11:09 AM Electronically Signed By:Eleonora Delgadillo LCSW
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
--- NOTE | 2018-12-23 16:17 | HOSPPROG ---
Hospitalist Progress Note Assessment/Plan: 43 yo M with PMH of C5 partial paraplegia as well as chronic SPC with chronic pyuria, chronic abdominal/bladder and rectal pain with continuous opiate use, DVT on AC presenting with various migratory complaints. #MRSA bacteremia- cultures positive for MRSA, and strep salivarius. Repeat cultures drawn last night and so far no growth to date. he was on rocephin however when those were drawn. --tunnel cath in place -on vancomycin -ID consulted, recommends cont vanco for now. -monitor repeat cultures. # leg pain: this was his initial presenting complaint, US performed showing resolving clot in the right leg, he is continued on lovenox and has chronic lower extremity edema. Does have possible AV fistula noted on US though unclear this would lead to his presenting sxs. # ? femoral AV fistula: on US and CT there is a question of possible proximal femoral AV fistula, nothing clear by history that could have caused this and query if this is an actual finding as report indicates it is uncertain and this clinically does not quite fit. At this time, will monitor and plan short term repeat US (in the next week) for further evaluation as recommended by radiology. Could consider general surgery consultation alternatively. # pyuria: patient with chronic pyuria in setting of chronic indwelling luo, although at this time UA does appear worse than previously and patient has associated imaging findings concerning for cystitis. Has been started on ctx, urine cultures pending, will continue abx for the time being pending urine culture -urine consistent with infection but patient with chronic suprapubic cath. -suprapubic cath changed. -changed to vancomycin today # abdominal/rectal pain: these are chronic complaints and at this time no clear etiology for either, has had rectal stump revision and has been followed by Dr. Fragoso as an OP for these issues, if pain not improving consider surgical consultation # chronic pain with continuous opiate use and dependency: continue home regimen , attempt to avoid IV pain medications as this has been an issue in the past on prior hospitalizations # DVT: continue lovenox, followed by hematology, US shows improvement as above # autonomic instability: currently has normal vital signs, continue midodrine Subjective: some tenderness at the tunneled cath site. no other complaints. Objective: Vital Signs Temp Pulse Resp BP Pulse Ox 36.8 C 70 18 105/61 95 12/23/18 15:44 12/23/18 15:44 12/23/18 15:44 12/23/18 15:44 12/23/18 12:35 Laboratory Results 12/23/18 04:50 12/23/18 04:50 12/22/18 12/23/18 12/24/18 05:59 05:59 05:59 Intake Total 1050 500 Output Total 450 1550 1350 Balance 600 -1050 -1350 PT 14.8 SEC (12.0-15.0) 12/21/18 19:30 INR 1.21 (0.83-1.16) H 12/21/18 19:30 - Physical Exam Constitutional: chronically ill appearing Eyes: PERRL, anicteric sclera, EOMI Ears, Nose, Mouth, Throat: moist mucous membranes, hearing normal, ears appear normal, no oral mucosal ulcers Cardiovascular: regular rate and rhythym, no murmur, rub, or gallop Respiratory: no respiratory distress, no rales or rhonchi, clear to auscultation Gastrointestinal: normoactive bowel sounds, soft, non-tender abdomen, no palpable masses Genitourinary: no bladder fullness, no bladder tenderness, no renal bruits Skin: no rashes or abrasions, no fluctuance, no induration Musculoskeletal: generalized weakness, other (paraplegia and no function of left arm. ) Neurologic: AAOx3, sensation intact bilaterally Psychiatric: interacting appropriately, not anxious, not encephalopathic, thought process linear Lymph, Heme, Immunologic: no cervical LAD, no supraclavicular LAD ICD10 Worksheet Patient Problems: Problems Problem Status Onset Abdominal pain Acute Chills Acute Urinary tract infection Acute Chronic flaccid quadriplegia Acute Nausea Acute Proctitis Acute Rectal bleeding Acute
[2018-12-23] MEDS: NS 1,000 ML IV SCH (17:03)
[2018-12-24] MEDS: morphINE 10 MG/0.5 ML UDSYR PO PRN ×4 (03:27→18:43)
[2018-12-24] MEDS: NS 1,000 ML IV SCH ×2 (03:29→14:38)
[2018-12-24] MEDS: FAMOTIDINE 20 MG TAB PO SCH ×2 (08:39→22:17)
[2018-12-24] MEDS: SENNOSIDES 1 TAB PO SCH (08:40)
[2018-12-24] MEDS: ENOXAPARIN 100 MG/ML SYR SC SCH ×2 (08:41→22:18)
[2018-12-24] MEDS: CHOLECALCIFEROL VIT D3 1,000 UNITS TAB PO SCH (08:57)
[2018-12-24] MEDS: CARBAMIDE PEROXIDE 15 ML OTIC.BTL EACHEAR SCH ×2 (08:59→22:29)
[2018-12-24] MEDS: PROMETHAZINE HCL 25 MG/ML INJ IVP PRN (10:53)
[2018-12-24] MEDS: VANCOMYCIN 1.5 GM in NS 250 ML IV SCH (11:48)
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
--- NOTE | 2018-12-24 17:00 | HOSPPROG ---
Hospitalist Progress Note Assessment/Plan: 43 yo M with PMH of C5 partial paraplegia as well as chronic SPC with chronic pyuria, chronic abdominal/bladder and rectal pain with continuous opiate use, DVT on AC presenting with various migratory complaints. #MRSA bacteremia- cultures positive for MRSA, and strep salivarius. Repeat cultures drawn last night and so far no growth to date. he was on rocephin however when those were drawn. --tunnel cath in place -on vancomycin -ID consulted, recommends cont vanco for now along with rocephin. -monitor repeat cultures which so far are no growth to date. -need to discuss with ID duration of course so that we can start looking at DC planning. # leg pain: this was his initial presenting complaint, US performed showing resolving clot in the right leg, he is continued on lovenox and has chronic lower extremity edema. Does have possible AV fistula noted on US though unclear this would lead to his presenting sxs. # ? femoral AV fistula: on US and CT there is a question of possible proximal femoral AV fistula, nothing clear by history that could have caused this and query if this is an actual finding as report indicates it is uncertain and this clinically does not quite fit. At this time, will monitor and plan short term repeat US (in the next week) for further evaluation as recommended by radiology. Could consider general surgery consultation alternatively. # pyuria: patient with chronic pyuria in setting of chronic indwelling luo, although at this time UA does appear worse than previously and patient has associated imaging findings concerning for cystitis. Has been started on ctx, urine cultures pending, will continue abx for the time being pending urine culture -urine consistent with infection but patient with chronic suprapubic cath. -suprapubic cath changed. -changed to vancomycin today # abdominal/rectal pain: these are chronic complaints and at this time no clear etiology for either, has had rectal stump revision and has been followed by Dr. Fragoso as an OP for these issues, if pain not improving consider surgical consultation # chronic pain with continuous opiate use and dependency: continue home regimen , attempt to avoid IV pain medications as this has been an issue in the past on prior hospitalizations # DVT: continue lovenox, followed by hematology, US shows improvement as above # autonomic instability: currently has normal vital signs, continue midodrine PPX- on lovenox Dispo-once duration of abx course determined Subjective: has a lot of soreness over his cath site. continues to specifically request IV pain medications and IV phenergan. Objective: Vital Signs Temp Pulse Resp BP Pulse Ox 36.8 C 81 16 111/61 95 12/24/18 11:51 12/24/18 11:51 12/24/18 11:51 12/24/18 11:51 12/24/18 11:51 Laboratory Results 12/23/18 04:50 12/23/18 04:50 12/23/18 12/24/18 12/25/18 05:59 05:59 05:59 Intake Total 500 1660 Output Total 1550 3100 Balance -1050 -1440 PT 14.8 SEC (12.0-15.0) 12/21/18 19:30 INR 1.21 (0.83-1.16) H 12/21/18 19:30 - Physical Exam Constitutional: chronically ill appearing Eyes: PERRL, anicteric sclera, EOMI Ears, Nose, Mouth, Throat: moist mucous membranes, hearing normal, ears appear normal, no oral mucosal ulcers Cardiovascular: regular rate and rhythym, no murmur, rub, or gallop Respiratory: no respiratory distress, no rales or rhonchi, clear to auscultation Gastrointestinal: normoactive bowel sounds, soft, non-tender abdomen, no palpable masses Genitourinary: no bladder fullness, no bladder tenderness, no renal bruits Skin: no rashes or abrasions, no fluctuance, no induration Musculoskeletal: generalized weakness, other Neurologic: AAOx3, sensation intact bilaterally Psychiatric: poor insight, poor judgement Lymph, Heme, Immunologic: no cervical LAD, no supraclavicular LAD ICD10 Worksheet Patient Problems: Problems Problem Status Onset Abdominal pain Acute Chills Acute Urinary tract infection Acute Chronic flaccid quadriplegia Acute Nausea Acute Proctitis Acute Rectal bleeding Acute
[2018-12-24] MEDS: VANCOMYCIN HCL/NORMAL SALINE 250 ML IV SCH (22:15)
[2018-12-25] MEDS: morphINE 10 MG/0.5 ML UDSYR PO PRN ×4 (00:01→13:29)
[2018-12-25] MEDS: NS 1,000 ML IV SCH (01:56)
[2018-12-25] MEDS: LACTULOSE 20 GM/30 ML UDCUP PO PRN (01:56)
[2018-12-25 07:49] VITALS: BP 114/74
[2018-12-25] MEDS: VANCOMYCIN HCL/NORMAL SALINE 250 ML IV SCH (08:45)
[2018-12-25] MEDS: ENOXAPARIN 100 MG/ML SYR SC SCH (08:45)
[2018-12-25] MEDS: fentaNYL 25 MCG PATCH TD SCH (08:45)
[2018-12-25] MEDS: FAMOTIDINE 20 MG TAB PO SCH (08:47)
[2018-12-25] MEDS: SENNOSIDES 1 TAB PO SCH (08:47)
[2018-12-25] MEDS: CHOLECALCIFEROL VIT D3 1,000 UNITS TAB PO SCH (08:47)
[2018-12-25] MEDS: CARBAMIDE PEROXIDE 15 ML OTIC.BTL EACHEAR SCH (08:52)
[2018-12-25] MEDS: DIAZEPAM 5 MG TAB PO PRN (11:15)
--- NOTE | 2018-12-25 12:24 | PCMIDPN ---
Assessment/Plan: Assessment: Positive polymicrobial blood culture upon admission. Workup in micro reveals that the Staph aureus is in fact methicillin sensitive and the BC ID identified a MAC a presence due to the coincident presence of coagulase-negative Staphylococcus. The repeat blood cultures are no growth to date and likely indicate that the initial polymicrobial blood culture is contaminated. Will discontinue the vancomycin today. Probable urinary tract infection. Patient had dull pelvic symptoms prior to admission and his urinalysis did show significant pyuria. The isolates found in his urine culture are being treated with the ceftriaxone. He is on his 3rd dose today. We will discontinue after today's dose. Plan: 1. Discontinue IV vancomycin. 2. Discontinue IV ceftriaxone after today's dose. 3. Follow clinical course. 4. Transfer back to [facility] once clinically stable. 12/25/18 12:21 Subjective: Patient is resting in his hospital bed. States that he still feels worse than baseline. Denies any specific complaint. His suprapubic catheter was changed earlier in the stay and he continues to relate some pelvic discomfort. Objective: Vancomycin # 3 Ceftriaxone # 3 Vital Signs Temp Pulse Resp BP Pulse Ox 37.2 C 73 16 114/74 96 12/25/18 07:45 12/25/18 07:45 12/25/18 07:45 12/25/18 07:45 12/25/18 07:45 Laboratory Results 12/23/18 04:50 12/23/18 04:50 12/24/18 12/25/18 12/26/18 05:59 05:59 05:59 Intake Total 1660 Output Total 3100 2550 Balance -1440 -2550 - Physical Exam General Appearance: WD/WN, alert, no apparent distress, non-toxic Respiratory: lungs clear, normal breath sounds, No respiratory distress Cardiac/Chest: regular rate, rhythm, No tachycardia Skin: normal color, warm/dry, No rash Neuro/Psych: alert, normal mood/affect, oriented x 3, No no motor/sensory deficits ICD10 Worksheet Patient Problems: Problems Problem Status Onset Abdominal pain Acute Chills Acute Urinary tract infection Acute Chronic flaccid quadriplegia Acute Nausea Acute Proctitis Acute Rectal bleeding Acute
--- NOTE | 2018-12-25 13:20 | PDIAF ---
- Diagnosis Code Status: Full Code - Medication Management Residential Antibiotics: none Discharge Medications: electronically signed and located in the Home Medication List. - Orders Services needed: Physical Therapy, Occupational Therapy Isolation Type: Contact Isolation Diet Recommendation: no restrictions on diet Diet Texture: Regular Texture Diet Additional Instructions: Wound Care: Apply moisturizing cream liberally to bilateral lower legs and feet except between toes BID and PRN. Apply Clear Zinc Cream to skin surrounding supra-pubic catheter PRN skin breakdown. Caryn Sow RN, Wound Care Team - Follow Up Care Current Providers and Referrals: LISBET MURRAY [Other]
[2018-12-25] MEDS: PROMETHAZINE HCL 25 MG TAB PO PRN (13:38)
--- NOTE | 2018-12-25 13:49 | ASMTLACE ---
LACE Length of stay for Answers: 4-6 days current admission Acuity / Level of Answers: No Care: Did the patient have an inpatient admission? Comorbidities - select Answers: Opioid dependence all that apply / Chronic pain Other Notes: Parapalegic; Ulcerative colitis # of Emergency department Answers: 9-12 visits in the last 6 months Score: 14 Date Signed: 12/25/2018 01:48 PM Electronically Signed By:JUNAID Danielson
--- NOTE | 2018-12-25 14:08 | ASMTDCNOTE ---
Case Management Discharge Discharge Order Complete? Answers: Yes Patient to Obtain Answers: Other Notes: [facility] Medications Transportation Arranged Answers: [facility] Stret[facility] Transport will Pick (Date 12/25/2018 03:30 PM & Time) EMTALA Complete Answers: No Case Management Transport Answers: Yes Notes: PCS form completed Form Complete Faxed Final Orders Answers: Yes Agency/Facility Transfer Answers: Yes Report Printed & Faxed to Receiving Agency Family Notified Answers: Yes Discharge Comments Notes: Pts case discussed w/ Dr. Christiansen. Pt is being d/c'd today back to [facility]. DC orders sent. Dr. Enciso saw pt and d/c ivabx. Ele RN will call to give report. CM completed PCS and a copy is in pts chart. CM available for changes. Plan: [facility] Date Signed: 12/25/2018 02:02 PM Electronically Signed By:JUNAID Danielson
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
== END 2018-12-25 15:55 ==
LOC: EDUNIT# → F3E 21:59
PROVIDERS: ADMIT Internal Medicine; ATTEND Internal Medicine
DX: I82.512 Chronic embolism and thrombosis of left femoral vein (principal); R10.9 Unspecified abdominal pain; R68.83 Chills (without fever); E86.9 Volume depletion, unspecified; R93.6 Abnormal findings on diagnostic imaging of limbs; K62.89 Other specified diseases of anus and rectum; G82.22 Paraplegia, incomplete; K51.90 Ulcerative colitis, unspecified, without complications; N31.9 Neuromuscular dysfunction of bladder, unspecified; R60.9 Edema, unspecified; G89.29 Other chronic pain; F11.20 Opioid dependence, uncomplicated; G90.8 Other disorders of autonomic nervous system; S14.105S Unspecified injury at C5 level of cervical spinal cord, sequela; W34.00XS Accidental discharge from unspecified firearms or gun, sequela; K21.9 Gastro-esophageal reflux disease without esophagitis; D64.9 Anemia, unspecified; Z79.01 Long term (current) use of anticoagulants; Z86.718 Personal history of other venous thrombosis and embolism; Z87.440 Personal history of urinary (tract) infections; Z87.891 Personal history of nicotine dependence; Z82.3 Family history of stroke; Z96.0 Presence of urogenital implants; Z90.49 Acquired absence of other specified parts of digestive tract; Z93.3 Colostomy status; Z98.1 Arthrodesis status
CPT/HCPCS: 36573; 74174; 76937; 77001; 93971; 97166; 99152; 99284; 99285; C1751; G0378; J0696; J1170; J1642; J1650; J2250; J2270; J2550; J3010; J3370; Q9967; 82435-PO; 82565-PO; 82947-PO; 84132-PO; 84295-PO; 84520-PO; 85014-ER

== ENCOUNTER 2019-01-08 12:58 | Emergency (ER) | payer OTHER, MEDICAID ==
--- NOTE | 2019-01-08 13:27 | EDPHY ---
H & P Stated Complaint: UTI/Pain Control Time Seen by Provider: 01/08/19 13:27 HPI/ROS: CHIEF COMPLAINT: [ ] HISTORY OF PRESENT ILLNESS: [Need 4: Location, Duration, Severity, Quality, Context, Timing Modifying Factors, Associated S&S] REVIEW OF SYSTEMS: A comprehensive 10 point review of systems is otherwise negative aside from elements mentioned in the history of present illness. Source: Patient Exam Limitations: No limitations - Personal History Current Tetanus/Diphtheria Vaccine: Yes Current Tetanus Diphtheria and Acellular Pertussis (TDAP): Yes - Medical/Surgical History Hx Asthma: No Hx Chronic Respiratory Disease: No Hx Diabetes: No Hx Cardiac Disease: No Hx Renal Disease: No Hx Cirrhosis: No Hx Alcoholism: No Hx HIV/AIDS: No Hx Splenectomy or Spleen Trauma: No Other PMH: parapalegic, gerd, ulcerative colitis, low bp, constipation, congenital cardiac malform repair, suprapubic luo, bowel resection 09/2018, colostomy - Social History Smoking Status: Never smoked - Physical Exam Exam: General Appearance: [Alert, no distress] Eyes: [Pupils equal and round no pallor or injection] ENT, Mouth: [Mucous membranes moist] Respiratory: [There are no retractions, lungs are clear to auscultation] Cardiovascular: [Regular rate and rhythm] Gastrointestinal: [Abdomen is soft and nontender, no masses, bowel sounds normal] Neurological: [A&O, normal motor function, normal sensory exam, normal cranial nerves] Skin: [Warm and dry, no rashes] Musculoskeletal: [Neck is supple nontender] Extremities: [symmetrical, full range of motion] Psychiatric: [Patient is oriented X 3, there is no agitation] Constitutional: Initial Vital Signs Temperature (C) 36.3 C 01/08/19 13:04 Heart Rate 56 L 01/08/19 13:04 Respiratory Rate 18 01/08/19 13:04 Blood Pressure 151/83 H 01/08/19 13:04 O2 Sat (%) 93 01/08/19 13:04 O2 Delivery Mode Room Air Allergies/Adverse Reactions: quetiapine fumarate [From Seroquel] Allergy (Severe, Verified 11/18/18 03:16) seizure propofol Allergy (Mild, Verified 11/18/18 03:16) BRADYCARDIA acetylcysteine [From Mucomyst] Allergy (Verified 11/18/18 03:16) CHILLS citalopram [From Celexa] Allergy (Verified 11/18/18 03:16) BAD THOUGHTS tramadol Allergy (Verified 11/18/18 03:16) NAUSEA AND DIZZY Home Medications: Medication Instructions Recorded Diazepam [Valium 10 MG (*)] 5 - 10 mg PO Q6 PRN 09/11/18 fentaNYL [Duragesic 25 MCG Patch 25 mcg TD Q72H patch 10/22/18 (*)] Midodrine HCl 2.5 mg PO Q6H PRN 10/26/18 Phenazopyridine HCl [Pyridium] 200 mg PO TID PRN 10/26/18 Cholecalciferol Vit D3 [Vitamin D3 1,000 units PO DAILY 12/21/18 (*)] Famotidine [Pepcid 20 MG (*)] 40 mg PO BID 12/21/18 Herbals/Supplements -Info Only 1 ea PO DAILY 12/21/18 Lactulose 10 ml PO Q6H PRN 12/21/18 Ondansetron Odt [Zofran Odt 4 mg 4 mg PO Q4 PRN 12/21/18 (*)] Promethazine HCl [Phenergan 25mg 25 mg PO Q6HRS PRN 12/21/18 (*)] Sennosides [Senna Lax] 8.6 mg PO DAILY 12/21/18 Simethicone [Mylicon] 80 mg PO DAILY PRN 12/21/18 morphINE [Roxanol 10 mg/0.5 ml 15 mg PO Q4H PRN 12/21/18 oral soln (*)] Enoxaparin [Lovenox 100 MG (*)] 100 mg SC BID syr 12/25/18 Departure - Departure Referrals: LISBET WOLF [Other] - As per Instructions
--- NOTE | 2019-01-08 13:32 | EDPHY ---
HPI/HX/ROS/PE/MDM Narrative: CHIEF COMPLAINT: Pain management, possible UTI HPI: This patient is a 43 year old male with C5 paraplegia who is well known to this department with past medical history including ulcerative colitis s/p bowel resection and colostomy and indwelling suprapubic Cruz catheter. He arrives today via EMS from [facility], his assisted living facility. He states "I came from that place, they ran out of my medication". He reports he has not had any of his regular pain medications including Roxanol since yesterday at 14:00. His pain level currently is 9/10. He additionally states he has had chills and has not been eating well. He feels as if he has a UTI and states he was told he had a bladder infection recently. He does have an indwelling catheter. He believes his assisted living facility may have records detailing his medications and recent urine labs, but does not have copies of these here in the emergency department. No chest pain, shortness of breath, vomiting, or other associated symptoms. REVIEW OF SYSTEMS: A comprehensive 10 system review of systems is otherwise negative aside from elements mentioned in the history of present illness and medical decision making. PMH:Paraplegia, GERD, ulcerative colitis, hypotension, constipation, congenital cardiac malform repair, suprapubic Cruz, bowel resection 09/2018, colostomy. SOCIAL HISTORY: Lives at [facility]. Single. Does not abuse tobacco, drugs, or alcohol. PHYSICAL EXAM: General:Patient is alert, in no acute distress. ENT:Eyes are normal to inspection. ENT inspection normal. Neck: Normal inspection. Full range of motion. Respiratory:No respiratory distress. Breath sounds normal bilaterally. Cardiovascular: Regular rate and rhythm. Strong peripheral pulses. Normal cap refill. Abdomen: Suprapubic catheter in place. The abdomen is nontender to palpation. There are no peritoneal signs. There are normal bowel sounds. Back: Normal to inspection. No tenderness to palpation. Skin: Normal color. No rash. Warm and dry. Extremities: Normal appearance. Bilateral foot braces in place. Neuro: Oriented x3. Paraplegia of right upper extremity, right lower extremity , left lower extremity. Neuro exam otherwise unremarkable, at baseline for patient. ED Course: This paraplegic 43 y/o male presents with concerns for medication management as well as a possible UTI. 13:35 Spoke with case management. Case management will consult with the patient' s caretakers at his assisted living facility. 14:08 Case management has spoken with staff at [facility]. They state he did run out of morphine this morning and that they were unable to obtain a refill in time. They believe this will be available by tomorrow. The patient is taking Cipro for a current UTI. [facility] will fax a list of the patient's current medications and case management will work with a local pharmacy to obtain a small gap supply of necessary medications for today. Plan to administer the patient's Cipro here in the emergency department as scheduled. Plan to provide gap prescription for patient's morphine from [facility]. 750mg PO Levaquin administered. Plan to discharge patient back to his assisted living facility in good condition. Follow up and return precautions discussed. He is comfortable with this plan. General Time Seen by Provider: 01/08/19 13:27 Initial Vital Signs: Initial Vital Signs Temperature (C) 36.3 C 01/08/19 13:04 Heart Rate 56 L 01/08/19 13:04 Respiratory Rate 18 01/08/19 13:04 Blood Pressure 151/83 H 01/08/19 13:04 O2 Sat (%) 93 01/08/19 13:04 O2 Delivery Mode Room Air Allergies/Adverse Reactions: quetiapine fumarate [From Seroquel] Allergy (Severe, Verified 11/18/18 03:16) seizure propofol Allergy (Mild, Verified 11/18/18 03:16) BRADYCARDIA acetylcysteine [From Mucomyst] Allergy (Verified 11/18/18 03:16) CHILLS citalopram [From Celexa] Allergy (Verified 11/18/18 03:16) BAD THOUGHTS tramadol Allergy (Verified 11/18/18 03:16) NAUSEA AND DIZZY Home Medications: Medication Instructions Recorded Diazepam [Valium 10 MG (*)] 5 - 10 mg PO Q6 PRN 09/11/18 fentaNYL [Duragesic 25 MCG Patch 25 mcg TD Q72H patch 10/22/18 (*)] Midodrine HCl 2.5 mg PO Q6H PRN 10/26/18 Phenazopyridine HCl [Pyridium] 200 mg PO TID PRN 10/26/18 Cholecalciferol Vit D3 [Vitamin D3 1,000 units PO DAILY 12/21/18 (*)] Famotidine [Pepcid 20 MG (*)] 40 mg PO BID 12/21/18 Herbals/Supplements -Info Only 1 ea PO DAILY 12/21/18 Lactulose 10 ml PO Q6H PRN 12/21/18 Ondansetron Odt [Zofran Odt 4 mg 4 mg PO Q4 PRN 12/21/18 (*)] Promethazine HCl [Phenergan 25mg 25 mg PO Q6HRS PRN 12/21/18 (*)] Sennosides [Senna Lax] 8.6 mg PO DAILY 12/21/18 Simethicone [Mylicon] 80 mg PO DAILY PRN 12/21/18 morphINE [Roxanol 10 mg/0.5 ml 15 mg PO Q4H PRN 12/21/18 oral soln (*)] Enoxaparin [Lovenox 100 MG (*)] 100 mg SC BID syr 12/25/18 morphINE [Roxanol 10 mg/0.5 ml 15 mg PO Q4H PRN #90 mg 01/08/19 oral soln (*)] Departure - Departure Disposition: Home, Routine, Self-Care Clinical Impression: Medication refill Urinary tract infection Qualifiers: Urinary tract infection type: acute cystitis Hematuria presence: without hematuria Qualified Code(s): N30.00 - Acute cystitis without hematuria Condition: Good Instructions: Urinary Tract Infection in Men (DC) Additional Instructions: Follow up with your primary care provider. Take your regular medications as prescribed. We have provided a gap prescription for morphine for you. We gave a dose of your antibiotics here in the emergency department as well. Referrals: LISBET BORGES [Other] - As per Instructions Prescriptions: morphINE [Roxanol 10 mg/0.5 ml oral soln (*)] 15 mg PO Q4H PRN #90 mg PRN Reason: Pain, Severe Report Scribed for: Cornel Fernandes Report Scribed by: Calista Borges Date of Report: 01/08/19 Time of Report: 13:39 Physician Review and Approval Statement: Portions of this note were transcribed by an ED scribe. I personally performed the history, physical exam, and medical decision making; and confirm the accuracy of the information in the transcribed note.
[2019-01-08 16:18] VITALS: BP 160/98
--- NOTE | 2019-01-08 19:16 | ASMTCMCOM ---
CM Note CM Note Notes: Pt presented to the ED via EMS from [facility] for a UTI and pain. Pt reported that [facility] ran out of his pain medication yesterday. CM called and spoke Grace, RN, for the pt and confirmed that [facility] did run out of the pt's morphine last night, despite 's attempts to get the medication refill ordered and delivered yesterday w/[facility] (per Michael there were multiple orders, faxes and miscommunication w/[facility] and pt's meds might not be delivered until 10pm tonight at the earliest). CM reviewed various past CM Reports, NOTES, etc. Unfortunately pt did not arrive to the ED with any paperwork from . CM spoke wCookie and he said he did send the full packet of info but that he would fax over pt's medication list to the ED. CM called [facility] and they said they could fill pt's morphine Rxn and deliver it at bedside. CM spoke Grace and he confirmed with their DON that they would be able to administer the medication if the Rxn was filled and delivered in a sealed bottle. ED MD wrote for 6 doses of the pt's medications as it is usually prescribed and CM faxed order to [facility]. Rxn was filled in a sealed bottle and delivered to the ED. Pt was diagnosed at w/UTI and staff were still waiting for the pt's Cipro rxn to be delivered by [facility] as well. ED MD ordered a dose of Levaquin to be given in the ED and the pt to start on Cipro tomorrow once the Rxn arrives. Per the ED RN, the pt refused to take the Levaquin and kept insisting that he needed to be admitted and receive IV pain meds and abx. CM arranged [facility] stretcher via online scheduling. CM called and gave RN report to Michael at . When [facility] arrived to the ED for transport, the pt said that wouldn't accept him back and that he is not welcome there, which is not true. Pt also reportedly told the ED RN that he will continue to refuse to take any PO meds after he arrives at and that he will "just call 911 when I get back there and ask to go to a different hospital." CM available for further assistance if needed. Date Signed: 01/08/2019 07:15 PM Electronically Signed By:Gena Hernandez RN
== END 2019-01-08 16:59 | disposition home or self-care (01) ==
LOC: EDUNIT#
DX: Z76.0 Encounter for issue of repeat prescription (principal); N30.00 Acute cystitis without hematuria